=== PATIENT | female | born 1935 | race Caucasian/White ===

== ENCOUNTER 2016-10-30 15:58 | Observation (INO) ==
[2016-10-30] MEDS ORDERED: SODIUM CHLORIDE 0.9% 500 ML IV STA (16:17)
[2016-10-30] MEDS ORDERED: ONDANSETRON 4 MG/2 ML VIAL IV STA (16:17)
--- NOTE | 2016-10-30 16:23 | Emergency Department Note ---
Arrival - Arrival Chief Complaint: Weakness ED Nursing Triage Note: c/o weak and dizziness. pt had lab work drawn about 2 weeks ago had low mag, iron and blood counts. pt is going to have a transfusion. Mode of Arrival: Stretcher Limitations: No Limitations Source: Patient Time Seen by Provider: 10/30/16 16:16 - History of Present Illness HPI Narrative: This 81-year-old white female with a history of severe chronic anemia due to chronic disease per Dr. Tom presents profoundly weak with dyspnea on exertion and low-grade nausea. She denies ananya vomiting, chest pain, abdominal pain, bright red blood per rectum, or melena. She states she was scheduled to have both an iron infusion and a blood transfusion December [address] Tom. However her weakness has progressed to the point that she feels she cannot tolerate it any longer. She is currently in no medical distress. Onset (ago): week(s) (Insidious onset over weeks) Allergies/Adverse Reactions: Allergies Allergy/AdvReac Type Severity Reaction Status Date / Time methotrexate Allergy Unknown/Unable Verified 06/07/15 15:31 to obtain Penicillins Allergy Unknown/Unable Verified 02/16/16 15:02 to obtain codeine AdvReac Severe Vomiting Verified 06/07/15 15:31 morphine AdvReac Severe Vomiting Verified 06/07/15 15:31 Sulfa (Sulfonamide AdvReac Nausea Verified 04/28/16 18:44 Antibiotics) Home Medications: Home Medications Medication Instructions Recorded Confirmed Type Hydroxychloroquine [Plaquenil] 200 mg PO BID 02/25/15 04/28/16 History Magnesium Chloride [Slow Mag] 64 mg PO TID W/MEALS 02/25/15 04/28/16 History Metoprolol Tartrate Tab [Lopressor 25 mg PO BID 02/25/15 04/28/16 History Tab] Omeprazole [Prilosec] 20 mg PO BID 02/25/15 04/28/16 History Aspirin EC Tab 81 mg PO DAILY 02/16/16 04/28/16 History Sertraline [Zoloft] 25 mg PO DAILY 02/16/16 04/28/16 History Simvastatin 40 mg PO QPM 02/16/16 04/28/16 History metFORMIN [Glucophage] 500 mg PO BID 02/16/16 04/28/16 History methIMAzole [Methimazole] 10 mg PO DAILY 02/16/16 04/28/16 History Ascorbic Acid [Vitamin C] 500 mg PO DAILY 04/28/16 04/28/16 History Ciprofloxacin Tab [Cipro Tab] 500 mg PO BID #20 tablet 04/28/16 Rx Folic Acid 0.8 mg PO DAILY 04/28/16 04/28/16 History Leflunomide [Arava] 10 mg PO DAILY 04/28/16 04/28/16 History Losartan Potassium 100 mg PO DAILY 04/28/16 04/28/16 History Magnesium Chloride [Mag Delay] 64 mg PO TID 04/28/16 04/28/16 History Metoprolol Tartrate Tab [Lopressor 25 mg PO BID 04/28/16 04/28/16 History Tab] Phenazopyridine HCl [Pyridium] 200 mg PO TID #7 tablet 04/28/16 Rx Potassium Gluconate 500 mg PO DAILY 04/28/16 04/28/16 History Vitamin E 400 unit PO DAILY 04/28/16 04/28/16 History predniSONE TAB [PredniSONE] 10 mg PO DAILY 04/28/16 04/28/16 History traMADol TAB [Ultram] 50 mg PO Q6H PRN #20 tablet 04/28/16 Rx Review of System - Review of System 12 point system: reviewed and no additional remarkable complaints except as stated - Review of System Respiratory: Present: as per HPI Cardiovascular: Present: as per HPI Gastrointestinal: Present: as per HPI Medical,Surgical,& Family Hx - Medical History Cardio: History of: CAD (RCA stents 2 in 2008, repeat heart cath 2010 widely patent), Hypertension No history of: CHF Psychological: History of: Depression Endocrine: History of: Diabetes Mellitus (NIDDM), Dyslipidemia, Thyroid Disorder Rheumatology: History of;: Rheumatoid Arthritis Respiratory: History of: Asthma, COPD Genitourinary: History of: Recurring Urinary Tract Infections Gastrointestinal: History of: Diverticulitis/ Diverticulosis, GERD Hematology: History of: Anemia - Surgical History Cardiac Surgeries: Sugical HX of: Cardiac Catheterization (STENTS X2) Abdominal Surgeries: Surgical HX of: Cholecystectomy Reproductive Surgeries: Surgical HX of;: Genitourinary Surgery (BLADDER TACT), Hysterectomy - Family History Family History: Reports;: Family Diabetes, Family Heart Disease, Family Hypertension - Social History Smoking Status: Unknown if ever smoked Frequency of Alcohol Use: None Type of Drug Use: None Exam Physical Examination: GENERAL: Well developed, well nourished pale elderly white female in no acute distress. HEENT: Normocephalic. No trauma. Moist mucous membranes but all mucosa extremely pale. EOMI. PERRLA. ENT NML NECK: Supple. No adenopathy. CARDIAC: Regular. No murmurs. Heart rate 72 CHEST: Clear to auscultation. No respiratory distress. O2 sat 100% ABDOMEN: Soft. Nontender. Active bowel sounds. EXTREMITIES: No trauma. Normal ROM. No pedal edema. SKIN: No diaphoresis. No rash. NEURO: Alert. Neuro intact. No focal deficits. Vital Signs: Vital Signs Temperature 97.0 F L 10/30/16 16:05 Pulse Rate 72 10/30/16 16:05 Respiratory Rate 18 10/30/16 16:05 Blood Pressure 161/81 10/30/16 16:05 O2 Sat by Pulse Oximetry 100 10/30/16 16:05 Course - Reevaluation(s) Reevaluation #1: Discussed with patient plans for admission for transfusion. - Consultations Consultation #1: Discussed with Dr. Tom who deferred to the hospitalist as this was a simple admission for transfusion. Consultation #2: Discussed with the hospitalist service who will admit for further evaluation treatment. Results - Labs CBC & BMP: 10/30/16 16:35 10/30/16 16:35 Labs: I have reviewed the laboratory noted the low hematocrit and very low iron. As well as findings of protein malnutrition. - Impressions EKG: Sinus rhythm at [address] interval and QRS duration. Normal ST segments. Normal EKG. - Diagnostic Findings Procedure: Chest x-ray: image reviewed by me, report reviewed by me (Normal chest) Disposition Clinical Impression: Anemia of chronic disease, Severe iron deficiency, Cystitis Case discussed with: patient Disposition: Still a Patient Condition: Stable Time of Disposition: 17:44
[2016-10-30] MEDS ORDERED: ONDANSETRON 4 MG/2 ML VIAL ONE (16:24)
--- NOTE | 2016-10-30 16:37 | XRay Report ---
XR chest 1V portable Indication: Shortness of breath Comparison: Chest x-ray 08/05/2015 Technique: Portable AP chest was performed. Findings: Heart size is normal. Pulmonary vasculature appears within normal limits. No significant abnormality of the mediastinal contours demonstrated. Lungs are clear. Bones and soft tissues demonstrate no significant abnormalities. Impression: 1. No evidence of acute pathology. 10/30/2016 4:34 PM PROCEDURE INTERPRETED AT [facility] DEPARTMENT OF RADIOLOGY Final Report Signed by: Dr. Fermín Caro
[2016-10-30 16:53] LABS: Basophils % 0.3 % (0.0-0.8); Eosinophils % 0.6 % (0.00-10.9); Hematocrit 23.3 VOL% (35.7-47.0); Hemoglobin 7.2 GM/DL (12.0-16.0); Immature Granulocytes % 0.6 %; Immature Granulocytes Absolute 0.04 #; Lymphocytes # 1.1 10*3/uL (1.4-4.0); Lymphocytes % 17.2 % (21.3-54.2); Mean Corpuscular HGB Conc 30.9 GM/DL (32-36); Mean Corpuscular Hemoglobin 25 PG (27-34); Mean Corpuscular Volume 80.9 FL (87-102); Mean Platelet Volume 10.2 FL (9.6-12.0); Monocytes # 0.4 10*3/uL (0.11-0.8); Neutrophils # 4.9 10*3/uL (1.4-7.4); Neutrophils % 75.3 % (38.7-73.9); Platelet Count 276 T/CUMM (130-400); Red Blood Count 2.88 MC/CUMM (3.8-5.5); Red Cell Distribution Width 15.8 % (9.3-17.3); White Blood Count 6.5 T/CUMM (4-12)
[2016-10-30 17:01] LABS: PT Patient Result 11.1 SECS
[2016-10-30 17:08] LABS: Apearance,Urine CLEAR (Clear); Bacteria,Urine Occasional /HPF (Few); Bilirubin,Urine Negative (Negative); Blood, Urine Negative (Negative); Glucose,Urine (UA) Negative (Negative); Ketones,Urine Negative (Negative); Mucus,Urine Occasional /LPF (Occasional); Nitrite,Urine Negative (Negative); Protein,Urine Negative; RBC,Urine 1 /HPF (0-4); Urine Color Straw (Yellow); Urine Specific Gravity 1.004 (1.001-1.035); Urine Urobilinogen < 2.0 EU/DL (0.2-1.0); WBC,Urine 2 /HPF (0-6)
[2016-10-30 17:22] LABS: % Iron Saturation 3.1 % (18-50); Alanine Aminotransferase 13 U/L (13-56); Albumin 2.7 G/DL (3.4-5.0); Alkaline Phosphatase 71 U/L (45-117); Aspartate Amino Transferase 9 U/L (0-37); Bilirubin,Total < 0.39 MG/DL (0.2-1.0); Blood Urea Nitrogen 13 MG/DL (7-18); Calcium 7.5 MG/DL (8.5-10.1); Glucose 112 MG/DL (74-106); Iron 10 UG/DL (50-170); Iron Binding Capacity 326 UG/DL (250-450); Magnesium 1.3 MG/DL (1.8-2.4); Osmolality,Calculated 286.8 MOS/KG (273-304); Sodium 144 MMOL/L (136-145); Total Protein 5.2 G/DL (6.4-8.3); Troponin I Only < 0.015 NG/ML (0.00-0.045)
--- NOTE | 2016-10-30 18:45 | Hospitalist History & Physical ---
Assessment and Plan - Time spent with patient Time spent with patient: Greater than 30 minutes (1) Anemia, iron deficiency Status: Acute Assessment and plan: H&H 7.2 and 23.3. Will admit to hospital. Will order Type and screen. Will transfuse PRBCs. Will repeat labs. Will replacement magnesium. Will discuss with Dr Anderson for further recommendations. Current Visit: No Qualifiers: Iron deficiency anemia type: chronic blood loss Qualified Code(s): D50.0 - Iron deficiency anemia secondary to blood loss (chronic) History of Present Illness Chief complaint: shortness of breath, chronic anemia History of present illness: Ms. Shah is a 81 year old white female presented to [facility] ED with shortness of breath with exertion, weakness, and dizziness. PMHx: CAD, Hypertension, Depression, Diabetes, dyslipidemia, thyroid disorder, Rheumatoid arthritis, Asthma, COPD, Recurrent urinary tract infections, GERD, diverticulitis, chronic anemia disease. She reports seeing Dr Adler Wednesday and had labs drawn. She was told that her blood count was low and her iron was low and was scheduled for [address] Tom. She reports some occasional nausea. Denies any vomiting, denies any blood in stools, dark or bright red. She verbalized that she has had upper and lower GI scopes, as well as a camera study and they were all negative for bleeding within the past 2 years. After discussion with Dr Grullon in the ED and Dr Anderson with Hospital Services, it was agreed to admit patient for further evaluation and treatment. Home medications will be reviewed and reconciliation to follow. Home Medications Medication Instructions Recorded Confirmed Type Hydroxychloroquine [Plaquenil] 200 mg PO BID 02/25/15 04/28/16 History Magnesium Chloride [Slow Mag] 64 mg PO TID W/MEALS 02/25/15 04/28/16 History Metoprolol Tartrate Tab [Lopressor 25 mg PO BID 02/25/15 04/28/16 History Tab] Omeprazole [Prilosec] 20 mg PO BID 02/25/15 04/28/16 History Aspirin EC Tab 81 mg PO DAILY 02/16/16 04/28/16 History Sertraline [Zoloft] 25 mg PO DAILY 02/16/16 04/28/16 History Simvastatin 40 mg PO QPM 02/16/16 04/28/16 History metFORMIN [Glucophage] 500 mg PO BID 02/16/16 04/28/16 History methIMAzole [Methimazole] 10 mg PO DAILY 02/16/16 04/28/16 History Ascorbic Acid [Vitamin C] 500 mg PO DAILY 04/28/16 04/28/16 History Ciprofloxacin Tab [Cipro Tab] 500 mg PO BID #20 tablet 04/28/16 Rx Folic Acid 0.8 mg PO DAILY 04/28/16 04/28/16 History Leflunomide [Arava] 10 mg PO DAILY 04/28/16 04/28/16 History Losartan Potassium 100 mg PO DAILY 04/28/16 04/28/16 History Magnesium Chloride [Mag Delay] 64 mg PO TID 04/28/16 04/28/16 History Metoprolol Tartrate Tab [Lopressor 25 mg PO BID 04/28/16 04/28/16 History Tab] Phenazopyridine HCl [Pyridium] 200 mg PO TID #7 tablet 04/28/16 Rx Potassium Gluconate 500 mg PO DAILY 04/28/16 04/28/16 History Vitamin E 400 unit PO DAILY 04/28/16 04/28/16 History predniSONE TAB [PredniSONE] 10 mg PO DAILY 04/28/16 04/28/16 History traMADol TAB [Ultram] 50 mg PO Q6H PRN #20 tablet 04/28/16 Rx Allergies Allergy/AdvReac Type Severity Reaction Status Date / Time methotrexate Allergy Unknown/Unable Verified 06/07/15 15:31 to obtain Penicillins Allergy Unknown/Unable Verified 02/16/16 15:02 to obtain codeine AdvReac Severe Vomiting Verified 06/07/15 15:31 morphine AdvReac Severe Vomiting Verified 06/07/15 15:31 Sulfa (Sulfonamide AdvReac Nausea Verified 04/28/16 18:44 Antibiotics) Medical,Surgical,& Family Hx - Medical History Cardio: History of: CAD (RCA stents 2 in 2008, repeat heart cath 2010 widely patent), Hypertension No history of: CHF Psychological: History of: Depression Endocrine: History of: Diabetes Mellitus (NIDDM), Dyslipidemia, Thyroid Disorder Rheumatology: History of;: Rheumatoid Arthritis Respiratory: History of: Asthma, COPD Genitourinary: History of: Recurring Urinary Tract Infections Gastrointestinal: History of: Diverticulitis/ Diverticulosis, GERD Hematology: History of: Anemia - Surgical History Cardiac Surgeries: Sugical HX of: Cardiac Catheterization (STENTS X2) Abdominal Surgeries: Surgical HX of: Cholecystectomy Reproductive Surgeries: Surgical HX of;: Genitourinary Surgery (BLADDER TACT), Hysterectomy - Family History Family History: Reports;: Family Diabetes, Family Heart Disease, Family Hypertension - Social History Smoking Status: Unknown if ever smoked Frequency of Alcohol Use: None Type of Drug Use: None Review of systems: ROS completed and pertinent positives and negatives in HPI. Exam - Constitutional Vitals: Period Temp Pulse Resp BP Sys/Ramon Pulse Ox Last 24 Hr 97.0 F-97.0 F 72-72 18-18 161-161/81-81 100 General appearance: normal weight, no acute distress - Head Head exam: Present: normal inspection - Eye Eye exam: Present: EOMI Pupils: Present: NELIDA - Neck Neck exam: Present: normal inspection. Absent: thyromegaly - Respiratory Respiratory exam: Present: clear to auscultation bilaterally. Absent: wheezes - Cardiovascular Cardiovascular exam: Present: regular rate and rhythm - GI/Abdominal GI/Abdominal exam: Present: normal bowel sounds, soft. Absent: tenderness, rebound - Extremities Exam Extremities exam: Present: full ROM. Absent: edema - Neurological Exam Neurological exam: Present: alert, oriented X3 - Psychiatric Psychiatric exam: Present: normal affect, normal mood - Skin Skin exam: Present: warm, dry, pallor Results - Labs CBC & BMP: 10/30/16 16:35 10/30/16 16:35 Lab Results: I have reviewed the past 24 hour labs
[2016-10-30] MEDS ORDERED: GLUCAGON 1 MG VIAL IM PRN (19:22)
[2016-10-30] MEDS ORDERED: SODIUM CHLORIDE 0.9% 250 ML IV PRN (19:22)
[2016-10-30] MEDS ORDERED: DEXTROSE 50% 25 GM/50 ML VIAL IV PRN (19:22)
[2016-10-30] MEDS ORDERED: MAGNESIUM SULF INJ 3 GM in SODIUM CHLORIDE 0.9% 100 ML IV ONE (20:00)
[2016-10-30] MEDS: SIMVASTATIN 40 MG TABLET PO SCH (21:17)
[2016-10-30] MEDS: METOPROLOL TARTRATE 25 MG TABLET PO SCH (21:17)
[2016-10-30] MEDS: MAGNESIUM CHLORIDE 64 MG TABLET PO SCH (21:17)
[2016-10-30] MEDS: INSULIN LISPRO 100 UNIT/ML SUBCUT SCH (21:17)
[2016-10-30] MEDS: HYDROXYCHLOROQUINE 200 MG TABLET PO SCH (21:17)
[2016-10-31] MEDS: ASCORBIC ACID 500 MG TABLET PO SCH (08:21)
[2016-10-31] MEDS: POTASSIUM GLUCONATE 500 MG TABLET PO SCH (08:21)
[2016-10-31] MEDS: FOLIC ACID 0.4 MG TABLET PO SCH (08:21)
[2016-10-31] MEDS: methIMAzole 5 MG TABLET PO SCH (08:21)
[2016-10-31] MEDS: MAGNESIUM CHLORIDE 64 MG TABLET PO SCH ×2 (08:22→20:38)
[2016-10-31] MEDS: LOSARTAN 50 MG TABLET PO SCH (08:22)
[2016-10-31] MEDS: METOPROLOL TARTRATE 25 MG TABLET PO SCH ×2 (08:22→20:38)
[2016-10-31] MEDS: ASPIRIN EC 81 MG TABLET PO SCH (08:22)
[2016-10-31] MEDS: PANTOPRAZOLE 40 MG TABLET PO SCH (08:22)
[2016-10-31] MEDS: SERTRALINE 25 MG TABLET PO SCH (08:22)
[2016-10-31] MEDS: HYDROXYCHLOROQUINE 200 MG TABLET PO SCH ×2 (08:22→20:38)
[2016-10-31] MEDS: metFORMIN 500 MG TABLET PO SCH ×2 (08:23→18:40)
[2016-10-31] MEDS: INSULIN LISPRO 100 UNIT/ML SUBCUT SCH ×4 (08:23→20:41)
[2016-10-31 08:33] LABS: Basophils # 0.1 10*3/uL (0.0-0.2); Basophils % 0.8 % (0.0-0.8); Eosinophils # 0.2 10*3/uL (0.0-0.87); Eosinophils % 2.1 % (0.00-10.9); Hematocrit 25.9 VOL% (35.7-47.0); Hemoglobin 8.1 GM/DL (12.0-16.0); Immature Granulocytes % 0.3 %; Immature Granulocytes Absolute 0.02 #; Lymphocytes # 3.4 10*3/uL (1.4-4.0); Lymphocytes % 47.1 % (21.3-54.2); Mean Corpuscular HGB Conc 31.3 GM/DL (32-36); Mean Corpuscular Hemoglobin 25 PG (27-34); Mean Corpuscular Volume 80.7 FL (87-102); Mean Platelet Volume 10.7 FL (9.6-12.0); Monocytes # 0.6 10*3/uL (0.11-0.8); Monocytes % 8.3 % (1.7-12.7); Neutrophils % 41.4 % (38.7-73.9); Platelet Count 348 T/CUMM (130-400); Red Blood Count 3.21 MC/CUMM (3.8-5.5); Red Cell Distribution Width 15.9 % (9.3-17.3); White Blood Count 7.2 T/CUMM (4-12)
--- NOTE | 2016-10-31 08:34 | EKG Report ---
Stationary ECG Study [facility] ER Test Date: 10/30/2016 5:04:57 PM Pat Name: PAYTON CARVALHO Department: Room: 436 Gender: F Clinical Programmer: : 1935 Requested by: Aki Grant Order Number: [id number] Reading MD: NINFA ALCOCER Intervals [place] Rate: 66 P: 72 ME: 173 QRS: 2 QRSD: 105 T: 32 QT: 391 QTc: 404 Interpretive Statements SINUS RHYTHM Electronically Signed On 11-01-16 15:49:35 CDT by NINFA ALCOCER [email or web address]
[2016-10-31 08:41] LABS: Calcium 8.7 MG/DL (8.5-10.1); Magnesium 2.6 MG/DL (1.8-2.4); Osmolality,Calculated 282.1 MOS/KG (273-304); Potassium 4.7 MMOL/L (3.5-5.1)
--- NOTE | 2016-10-31 12:44 | Hospitalist Progress Note ---
Assessment and Plan (1) Iron deficiency anemia Status: Acute Assessment and plan: The patient was in the hospital with anemia. Previous hematologic diagnosis was anemia of chronic disease likely on account of rheumatoid. The patient continues on hydration for now we will transfuse 2 units packed red blood cells when available. Current Visit: No (2) Intractable nausea and vomiting Status: Resolved Current Visit: No Hospitalist: Subjective Interval history: Mrs. Shah was admitted to the hospital for blood transfusion. Blood bank is having difficulty finding compatible blood so far. The patient was initially nauseated but this has now improved. Exam - Constitutional Vitals: Period Temp Pulse Resp BP Sys/Ramon Pulse Ox Last 24 Hr 96.3 F-97.8 F 58-72 16-20 108-171/49-84 95-100 General appearance: no acute distress - Respiratory Respiratory exam: Present: clear to auscultation bilaterally - Cardiovascular Cardiovascular exam: Present: regular rate and rhythm - GI/Abdominal GI/Abdominal exam: Present: normal bowel sounds Results - Labs CBC & BMP: 10/31/16 07:55 10/31/16 07:55 Lab Results: I have reviewed the past 24 hour labs
[2016-10-31] MEDS: SIMVASTATIN 40 MG TABLET PO SCH (20:38)
[2016-10-31 23:12] LABS: Hematocrit 30.3 VOL% (35.7-47.0); Hemoglobin 9.8 GM/DL (12.0-16.0)
--- NOTE | 2016-11-01 08:41 | Discharge Summary ---
<Lavern Weeks - Last Filed: 11/01/16 09:01> Hospital Course - Hospital Course Hospital Course: 11/01/16 Ms Shah 81 y/o white female presented to the [facility] ED on for c/o shortness of breath with exertion, weakness, and dizziness. PMHx Anemia of Chronic Disease, CAD, Hypertension, Depression, Diabetes, dyslipidemia , thyroid disorder, Rheumatoid arthritis, Asthma, COPD, Recurrent urinary tract infections, GERD, diverticulitis. Patient of Dr Adler and had lab work done at the office and patient reported she was informed to have a "low blood count and low iron" and was then made an appointment with Dr Tom for next week. She verbalized she could not wait till next week because she was feeling worse and therefore came to the emergency room for evaluation. She reports having recent upper and lower GI scopes as well as camera exam but nothing was abnormally found. Anemia of chronic disease is most likely related to Rheumatoid disease. While in the ED, H&H was noted to be 7.2 and 23.3, electrolytes were within normal limits, and renal function intact. At which time it was decided to admit patient to hospital services and transfusion lab was gone for the day. Admit for symptomatic anemia of chronic disease, type and screen, crossmatch with transfusion of 2 units of PRBCs. After transfusion completed Hbg 8.1 and Hct 25.9. 11/01/16 Ms Shah seen this a.m and chart reviewed. She verbalized feeling much better. Denies shortness of breath or pain. Denies nausea or vomiting. Noelle fever or chills. She appears more energetic this a.m. Labs this a.m. showed improving H&H; Hgb 9.8 and Hct 30.3. She agrees with the plan of getting her home today. She will need to follow up with her primary care physician Dr Adler and Dr Tom. - Time spent with patient Time with patient DS: Less than 30 minutes Diagnosis - Discharge Diagnosis (1) Anemia, iron deficiency Status: Acute Discharge Plan - Discharge Data Disposition: Disch To Home/Self Care Condition at Discharge: Stable Discharge Diet: advance to your usual diet Activity: resume usual activities as tolerated, increase activity as tolerated Hygiene: no restrictions Weight Bearing at Discharge: full weight bearing Contact your physician if you experience:: fever over 101, Shortness of breath, Bleeding - Discharge Medications Continue Omeprazole [Prilosec] 20 mg PO QAM Metoprolol Tartrate Tab [Lopressor Tab] 25 mg PO BID Hydroxychloroquine [Plaquenil] 200 mg PO BID Aspirin EC Tab 81 mg PO QAM Simvastatin 40 mg PO QPM Sertraline [Zoloft] 25 mg PO QAM methIMAzole [Methimazole] 10 mg PO QAM metFORMIN [Glucophage] 500 mg PO BID W/MEALS Ascorbic Acid [Vitamin C] 500 mg PO QAM Potassium Gluconate 500 mg PO DAILY predniSONE TAB [PredniSONE] 10 mg PO QOTHER DAY Magnesium Chloride [Mag Delay] 128 mg PO BID Losartan Potassium 100 mg PO QAM Folic Acid 0.8 mg PO QAM Leflunomide [Arava] 10 mg PO QOTHER DAY - Follow Up or Referral - Forms/Instructions Additional Discharge Instructions: Follow up with Primary Care Physician in 1-2 weeks Exam - Constitutional Vitals: Period Temp Pulse Resp BP Sys/Ramon Pulse Ox Last 24 Hr 96.7 F-98.3 F 57-72 17-22 120-164/51-69 95-100 General appearance: normal weight - Head Head exam: Present: normal inspection - Eye Eye exam: Present: EOMI Pupils: Present: NELIDA - ENT ENT exam: Present: other (moist membranes) - Neck Neck exam: Present: normal inspection - Respiratory Respiratory exam: Present: clear to auscultation bilaterally. Absent: stridor, wheezes - Cardiovascular Cardiovascular exam: Present: regular rate and rhythm - GI/Abdominal GI/Abdominal exam: Present: normal bowel sounds, soft. Absent: tenderness, rebound - Extremities Exam Extremities exam: Present: full ROM. Absent: edema - Neurological Exam Neurological exam: Present: alert, oriented X3, CN II-XII intact - Psychiatric Psychiatric exam: Present: normal affect, normal mood. Absent: agitated, anxious - Skin Skin exam: Present: normal color (anemia of chronic disease, color improved since admission), warm, dry Discharge Results Labs on day of discharge: Labs from last 24 hours 11/01/16 10/31/16 10/31/16 07:52 22:51 20:37 Hgb 9.8 L D Hct 30.3 L POC Glucose 87 137 H Blood Type Antibody Screen Antibody Identification Crossmatch 0710/31/16 10/30/16 16:09 11:28 16:35 Hgb Hct POC Glucose 94 80 Blood Type A POSITIVE Antibody Screen Positive Antibody Identification Anti-Jka Crossmatch See Detail DS: Provider Date of admission: 10/30/16 18:48 Primary care physician: . No PCP Attending physician on admission: Jefry Zapata Discharging clinician: Lavern Weeks NP <Diego Delgado - Last Filed: 11/01/16 09:11> Diagnosis - Discharge Diagnosis (1) Iron deficiency anemia Status: Chronic
[2016-11-01] MEDS ORDERED: predniSONE 10 MG TABLET PO SCH (09:00)
[2016-11-01] MEDS ORDERED: LEFLUNOMIDE 10 MG TABLET PO SCH (09:00)
[2016-11-01 09:33] VITALS: BP 146/65
[2016-11-01] MEDS: methIMAzole 5 MG TABLET PO SCH (10:34)
[2016-11-01] MEDS: FOLIC ACID 0.4 MG TABLET PO SCH (10:34)
[2016-11-01] MEDS: POTASSIUM GLUCONATE 500 MG TABLET PO SCH (10:34)
[2016-11-01] MEDS: SERTRALINE 25 MG TABLET PO SCH (10:34)
[2016-11-01] MEDS: HYDROXYCHLOROQUINE 200 MG TABLET PO SCH (10:34)
[2016-11-01] MEDS: LOSARTAN 50 MG TABLET PO SCH (10:35)
[2016-11-01] MEDS: MAGNESIUM CHLORIDE 64 MG TABLET PO SCH (10:35)
[2016-11-01] MEDS: ASCORBIC ACID 500 MG TABLET PO SCH (10:35)
[2016-11-01] MEDS: METOPROLOL TARTRATE 25 MG TABLET PO SCH (10:35)
[2016-11-01] MEDS: ASPIRIN EC 81 MG TABLET PO SCH (10:35)
[2016-11-01] MEDS: PANTOPRAZOLE 40 MG TABLET PO SCH (10:36)
[2016-11-01] MEDS: metFORMIN 500 MG TABLET PO SCH (10:36)
[2016-11-01] MEDS: INSULIN LISPRO 100 UNIT/ML SUBCUT SCH (10:52)
== END 2016-11-01 11:16 | disposition home or self-care (01) ==
LOC: EDBD → EDUNIT# → N.ED 15:58 → N.4E 15:58 → SUATTDRO 18:48 → N.4E 19:35
PROVIDERS: ADMIT Hospitalist; ATTEND Internal Medicine

== ENCOUNTER 2017-03-25 23:21 | Inpatient (IN) ==
[2017-03-25] MEDS ORDERED: ONDANSETRON 4 MG/2 ML VIAL IV STA (23:44)
[2017-03-25] MEDS ORDERED: DICYCLOMINE 20 MG/2 ML AMP IM ONE ×2 (23:44→23:56)
[2017-03-25] MEDS ORDERED: SODIUM CHLORIDE 0.9% 1,000 ML IV STA (23:44)
[2017-03-25] MEDS ORDERED: PANTOPRAZOLE 40 MG VIAL IV STA (23:44)
[2017-03-25] MEDS ORDERED: METOCLOPRAMIDE 10 MG/2 ML VIAL IV STA (23:44)
[2017-03-25] MEDS ORDERED: METOCLOPRAMIDE 10 MG/2 ML VIAL ONE (23:56)
[2017-03-25] MEDS ORDERED: ONDANSETRON 4 MG/2 ML VIAL ONE (23:56)
[2017-03-25] MEDS ORDERED: PANTOPRAZOLE 40 MG VIAL IV ONE (23:56)
[2017-03-26 00:21] LABS: Basophils % 0.3 % (0.0-0.8); Eosinophils # 0.1 10*3/uL (0.0-0.87); Eosinophils % 0.8 % (0.00-10.9); Hematocrit 36.1 VOL% (35.7-47.0); Hemoglobin 11.7 GM/DL (12.0-16.0); Immature Granulocytes % 0.6 %; Immature Granulocytes Absolute 0.06 #; Lymphocytes # 2.7 10*3/uL (1.4-4.0); Lymphocytes % 25.3 % (21.3-54.2); Mean Corpuscular HGB Conc 32.4 GM/DL (32-36); Mean Corpuscular Hemoglobin 30 PG (27-34); Mean Platelet Volume 10.4 FL (9.6-12.0); Monocytes # 1.1 10*3/uL (0.11-0.8); Monocytes % 10.7 % (1.7-12.7); Neutrophils # 6.6 10*3/uL (1.4-7.4); Neutrophils % 62.3 % (38.7-73.9); Platelet Count 290 T/CUMM (130-400); Red Blood Count 3.88 MC/CUMM (3.8-5.5); Red Cell Distribution Width 14.9 % (9.3-17.3); White Blood Count 10.6 T/CUMM (4-12)
[2017-03-26 00:29] LABS: PT Patient Result 10.5 SECS; Partial Thromboplastin Time 22.9 SECS (0-40)
[2017-03-26 00:42] LABS: Alanine Aminotransferase 16 U/L (13-56); Albumin 3.3 G/DL (3.4-5.0); Alkaline Phosphatase 80 U/L (45-117); Aspartate Amino Transferase 22 U/L (0-37); Bilirubin,Total < 0.39 MG/DL (0.2-1.0); Blood Urea Nitrogen 28 MG/DL (7-18); Calcium 8.7 MG/DL (8.5-10.1); Glucose 170 MG/DL (74-106); Osmolality,Calculated 288.4 MOS/KG (273-304); Potassium 4.5 MMOL/L (3.5-5.1); Sodium 140 MMOL/L (136-145); Total Protein 6.2 G/DL (6.4-8.3); Troponin I Only < 0.015 NG/ML (0.00-0.045)
[2017-03-26 01:36] LABS: Apearance,Urine Slightly Hazy (Clear); Bacteria,Urine Occasional /HPF (Few); Bilirubin,Urine Negative (Negative); Blood, Urine Negative (Negative); Glucose,Urine (UA) 50 mg/dL (Negative); Hyaline Casts,Urine 2 /LPF (0-3); Ketones,Urine Negative (Negative); Mucus,Urine Occasional /LPF (Occasional); Nitrite,Urine Negative (Negative); Protein,Urine Negative; RBC,Urine 1 /HPF (0-4); Squamous Epithelial Cell,Urine Occasional /HPF (0-10); Urine Color Yellow (Yellow); Urine Urobilinogen < 2.0 EU/DL (0.2-1.0); WBC,Urine 17 /HPF (0-6)
[2017-03-26] MEDS ORDERED: ACETAMINOPHEN 325 MG TABLET PO PRN (02:30)
[2017-03-26] MEDS ORDERED: ONDANSETRON 4 MG/2 ML VIAL IV PRN (02:30)
[2017-03-26] MEDS ORDERED: DEXTROSE 50% 25 GM/50 ML VIAL IV PRN (02:34)
[2017-03-26] MEDS ORDERED: GLUCAGON 1 MG VIAL IM PRN (02:34)
[2017-03-26] MEDS ORDERED: tiZANidine 4 MG TABLET PO PRN (02:35)
[2017-03-26] MEDS ORDERED: ALBUTEROL 2.5 MG/3 ML NEB RESP TX PRN (02:35)
[2017-03-26 05:38] LABS: Barbiturates Screen,Urine Negative (Negative); Benzodiazepines Screen,Urine Negative (Negative); Cannabinoid Screen,Urine Negative (Negative); Opiate Screen,Urine Negative (Negative); Phencyclidine Screen,Urine Negative (Negative)
[2017-03-26 07:17] LABS: Hematocrit 32.1 VOL% (35.7-47.0); Hemoglobin 10.6 GM/DL (12.0-16.0)
[2017-03-26 07:53] LABS: Alanine Aminotransferase 15 U/L (13-56); Albumin 3.1 G/DL (3.4-5.0); Alkaline Phosphatase 74 U/L (45-117); Aspartate Amino Transferase 11 U/L (0-37); Bilirubin,Total < 0.39 MG/DL (0.2-1.0); Blood Urea Nitrogen 23 MG/DL (7-18); Calcium 8.6 MG/DL (8.5-10.1); Glucose 146 MG/DL (74-106); Osmolality,Calculated 285.4 MOS/KG (273-304); Sodium 140 MMOL/L (136-145); Total Protein 5.7 G/DL (6.4-8.3); Troponin I Only < 0.015 NG/ML (0.00-0.045)
[2017-03-26] MEDS ORDERED: LEFLUNOMIDE 10 MG TABLET PO SCH (09:00)
[2017-03-26 09:09] LABS: Hematocrit 31.3 VOL% (35.7-47.0); Hemoglobin 10.3 GM/DL (12.0-16.0)
[2017-03-26] MEDS ORDERED: AMIODARONE 200 MG TABLET PO ONE (09:51)
[2017-03-26] MEDS: INSULIN REGULAR 100 UNIT/ML SUBCUT SCH ×4 (11:40→21:28)
[2017-03-26] MEDS: FLUTICASONE/SALMETEROL 250-50 DISKUS 14 DOSE INH SCH ×2 (11:52→21:38)
[2017-03-26] MEDS: PANTOPRAZOLE 40 MG VIAL IV SCH ×2 (11:52→21:29)
[2017-03-26] MEDS: METOPROLOL TARTRATE 25 MG TABLET PO SCH ×2 (11:52→21:28)
[2017-03-26] MEDS: MAGNESIUM CHLORIDE 64 MG TABLET PO SCH ×2 (11:52→21:27)
[2017-03-26] MEDS: ASCORBIC ACID 500 MG TABLET PO SCH (11:52)
[2017-03-26] MEDS: methIMAzole 10 MG TABLET PO SCH (11:52)
[2017-03-26] MEDS: HYDROXYCHLOROQUINE 200 MG TABLET PO SCH ×2 (11:52→21:28)
[2017-03-26] MEDS: predniSONE 10 MG TABLET PO SCH (11:52)
[2017-03-26] MEDS: METHENAMINE HIPPURATE 1 GM TABLET PO SCH ×2 (11:52→21:27)
[2017-03-26] MEDS: SERTRALINE 25 MG TABLET PO SCH (11:53)
[2017-03-26 16:29] LABS: Hematocrit 32.2 VOL% (35.7-47.0); Hemoglobin 10.5 GM/DL (12.0-16.0)
[2017-03-26] MEDS ORDERED: SIMVASTATIN 40 MG TABLET PO SCH ×2 (19:00→21:00)
[2017-03-26 22:11] LABS: Hematocrit 30.4 VOL% (35.7-47.0); Hemoglobin 9.8 GM/DL (12.0-16.0)
[2017-03-27] MEDS ORDERED: SODIUM CHLORIDE 0.9% 250 ML IV ONE
[2017-03-27 03:06] LABS: Basophils % 0.4 % (0.0-0.8); Eosinophils # 0.1 10*3/uL (0.0-0.87); Eosinophils % 0.7 % (0.00-10.9); Hematocrit 29.4 VOL% (35.7-47.0); Hemoglobin 9.5 GM/DL (12.0-16.0); Immature Granulocytes % 0.6 %; Immature Granulocytes Absolute 0.04 #; Lymphocytes # 1.8 10*3/uL (1.4-4.0); Lymphocytes % 25.1 % (21.3-54.2); Mean Corpuscular HGB Conc 32.3 GM/DL (32-36); Mean Corpuscular Hemoglobin 30 PG (27-34); Mean Corpuscular Volume 92.2 FL (87-102); Mean Platelet Volume 10.7 FL (9.6-12.0); Monocytes # 0.8 10*3/uL (0.11-0.8); Monocytes % 10.3 % (1.7-12.7); Neutrophils # 4.6 10*3/uL (1.4-7.4); Neutrophils % 62.9 % (38.7-73.9); Platelet Count 252 T/CUMM (130-400); Red Blood Count 3.19 MC/CUMM (3.8-5.5); Red Cell Distribution Width 14.9 % (9.3-17.3); White Blood Count 7.3 T/CUMM (4-12)
[2017-03-27 03:47] LABS: Calcium 8.3 MG/DL (8.5-10.1); Magnesium 2.3 MG/DL (1.8-2.4); Osmolality,Calculated 285.1 MOS/KG (273-304); Potassium 4.1 MMOL/L (3.5-5.1)
[2017-03-27 03:57] LABS: Risk Ratio 2.59; VLDL CHOLESTEROL 23.4 MG/DL
[2017-03-27] MEDS: INSULIN REGULAR 100 UNIT/ML SUBCUT SCH ×2 (07:48→12:06)
[2017-03-27] MEDS ORDERED: AMIODARONE 200 MG TABLET PO SCH (09:00)
[2017-03-27] MEDS: FLUTICASONE/SALMETEROL 250-50 DISKUS 14 DOSE INH SCH (09:28)
[2017-03-27] MEDS: PANTOPRAZOLE 40 MG VIAL IV SCH (09:28)
[2017-03-27] MEDS: MAGNESIUM CHLORIDE 64 MG TABLET PO SCH (09:30)
[2017-03-27] MEDS: METOPROLOL TARTRATE 25 MG TABLET PO SCH (09:31)
[2017-03-27] MEDS: methIMAzole 10 MG TABLET PO SCH (09:31)
[2017-03-27] MEDS: HYDROXYCHLOROQUINE 200 MG TABLET PO SCH (09:31)
[2017-03-27] MEDS: METHENAMINE HIPPURATE 1 GM TABLET PO SCH (09:31)
[2017-03-27] MEDS: predniSONE 10 MG TABLET PO SCH (09:32)
[2017-03-27] MEDS: ASCORBIC ACID 500 MG TABLET PO SCH (09:32)
[2017-03-27] MEDS: SERTRALINE 25 MG TABLET PO SCH (09:37)
[2017-03-27] MEDS ORDERED: SODIUM CHLORIDE 0.9% 500 ML IV ONE (10:03)
[2017-03-27 11:50] VITALS: BP 123/57
[2017-03-29] MEDS ORDERED: POLYETHYLENE GLYCOL POWDER 255 GM BOTTLE PO ONE (16:00)
[2017-03-30] MEDS ORDERED: MAGNESIUM CITRATE 300 ML BOTTLE PO ONE (06:00)
== END 2017-03-27 15:30 | disposition home or self-care (01) | DRG 378 ==
LOC: EDUNIT# → EDBD → N.ED 23:21 → N.EDINP 03-26 02:30 → N.TELES 03-26 02:57
PROVIDERS: ADMIT Internal Medicine; ATTEND Internal Medicine

== ENCOUNTER 2017-04-29 05:56 | Inpatient (IN) ==
[2017-04-27 17:02] LABS: Basophils # 0.1 10*3/uL (0.0-0.2); Basophils % 0.8 % (0.0-0.8); Eosinophils # 0.3 10*3/uL (0.0-0.87); Eosinophils % 3.4 % (0.00-10.9); Hemoglobin 10.4 GM/DL (12.0-16.0); Immature Granulocytes % 0.8 %; Immature Granulocytes Absolute 0.06 #; Lymphocytes % 26.5 % (21.3-54.2); Mean Corpuscular HGB Conc 31.5 GM/DL (32-36); Mean Corpuscular Hemoglobin 30 PG (27-34); Mean Corpuscular Volume 94.8 FL (87-102); Mean Platelet Volume 10.2 FL (9.6-12.0); Monocytes # 0.9 10*3/uL (0.11-0.8); Monocytes % 11.2 % (1.7-12.7); Neutrophils # 4.4 10*3/uL (1.4-7.4); Neutrophils % 57.3 % (38.7-73.9); Platelet Count 260 T/CUMM (130-400); Red Blood Count 3.48 MC/CUMM (3.8-5.5); Red Cell Distribution Width 14.6 % (9.3-17.3); White Blood Count 7.7 T/CUMM (4-12)
[2017-04-27 17:32] LABS: Albumin 3.7 G/DL (3.4-5.0); Bilirubin,Total 0.5 MG/DL (0.2-1.0); Calcium 8.9 MG/DL (8.5-10.1); Osmolality,Calculated 278.5 MOS/KG (273-304); Potassium 4.5 MMOL/L (3.5-5.1); Total Protein 6.5 G/DL (6.4-8.3)
[2017-04-29] MEDS ORDERED: cefOXitin 1,000 MG in SYRINGE 1 EACH IV ONE (06:00)
[2017-04-29] MEDS ORDERED: ALVIMOPAN 12 MG CAPSULE PO ONE (06:00)
[2017-04-29] MEDS ORDERED: IPRATROPIUM 500 MCG/2.5 ML NEB RESP TX ONE (06:18)
[2017-04-29] MEDS ORDERED: ALBUTEROL 2.5 MG/3 ML NEB RESP TX ONE (06:18)
[2017-04-29] MEDS ORDERED: FAMOTIDINE 20 MG TABLET PO ONE (06:18)
[2017-04-29] MEDS ORDERED: DIAZEPAM 5 MG TABLET PO ONE (06:18)
[2017-04-29] MEDS ORDERED: BUPIVACAINE 0.25% 50 ML VIAL ONE (06:22)
[2017-04-29] MEDS ORDERED: ALVIMOPAN 12 MG CAPSULE ONE (06:35)
[2017-04-29] MEDS: LACTATED RINGERS 1,000 ML IV SCH (06:50)
[2017-04-29] MEDS ORDERED: TISSUE ADHESIVE 1 EACH APPLICATOR TOP ONE (08:31)
[2017-04-29] MEDS ORDERED: ONDANSETRON 4 MG/2 ML VIAL IV PRN ×2 (08:55→09:19)
[2017-04-29] MEDS ORDERED: HYDROmorphone 2 MG/1 ML VIAL IV PRN (08:55)
[2017-04-29] MEDS ORDERED: ALBUTEROL 2.5 MG/3 ML NEB RESP TX PRN (08:59)
[2017-04-29] MEDS ORDERED: DEXTROSE 50% 25 GM/50 ML VIAL IV PRN (09:01)
[2017-04-29] MEDS ORDERED: GLUCAGON 1 MG VIAL IM PRN (09:01)
[2017-04-29] MEDS ORDERED: PROPOFOL 200 MG/20 ML VIAL IV ONE (09:09)
[2017-04-29] MEDS ORDERED: fentaNYL 100 MCG/2 ML VIAL ONE (09:09)
[2017-04-29] MEDS ORDERED: methylPREDNISolone SOD SUC 125 MG/2 ML VIAL ONE (09:09)
[2017-04-29] MEDS ORDERED: ALBUMIN 5% 12.5 GM/250 ML VIAL IV ONE (09:09)
[2017-04-29] MEDS ORDERED: SEVOFLURANE 1 UNIT/15 MINUTE INH ONE (09:09)
[2017-04-29] MEDS ORDERED: ROCURONIUM 100 MG/10 ML VIAL IV ONE (09:10)
[2017-04-29] MEDS ORDERED: NEOSTIGMINE 10 MG/10 ML VIAL ONE (09:10)
[2017-04-29] MEDS ORDERED: GLYCOPYRROLATE 0.4 MG/2 ML VIAL ONE (09:10)
[2017-04-29] MEDS ORDERED: LACTATED RINGERS 1,000 ML IV ONE (09:10)
[2017-04-29] MEDS: HYDROmorphone 2 MG/1 ML VIAL IV PRN ×2 (09:25→09:42)
[2017-04-29 10:34] LABS: Hematocrit 30.1 VOL% (35.7-47.0); Hemoglobin 9.4 GM/DL (12.0-16.0)
[2017-04-29] MEDS: AMIODARONE 200 MG TABLET PO SCH (11:36)
[2017-04-29] MEDS: predniSONE 10 MG TABLET PO SCH (11:37)
[2017-04-29] MEDS: CARVEDILOL 12.5 MG TABLET PO SCH ×2 (11:37→20:54)
[2017-04-29] MEDS: SERTRALINE 25 MG TABLET PO SCH (11:37)
[2017-04-29] MEDS: INSULIN REGULAR 100 UNIT/ML SUBCUT SCH ×3 (12:15→23:32)
[2017-04-29] MEDS: DEXTROSE 5% LACTATED RINGERS 1,000 ML IV SCH ×3 (13:12→21:13)
[2017-04-29] MEDS: cefOXitin 2,000 MG in SYRINGE 1 EACH IV SCH ×2 (13:12→22:49)
[2017-04-29 17:31] LABS: Hematocrit 29.9 VOL% (35.7-47.0); Hemoglobin 9.7 GM/DL (12.0-16.0)
[2017-04-29] MEDS: MONTELUKAST 10 MG TABLET PO SCH (20:54)
[2017-04-30 01:06] LABS: Basophils % 0.1 % (0.0-0.8); Hematocrit 28.1 VOL% (35.7-47.0); Hematocrit 28.2 VOL% (35.7-47.0); Hemoglobin 9.1 GM/DL (12.0-16.0); Immature Granulocytes % 0.7 %; Immature Granulocytes Absolute 0.09 #; Lymphocytes # 0.8 10*3/uL (1.4-4.0); Lymphocytes % 5.8 % (21.3-54.2); Mean Corpuscular HGB Conc 32.3 GM/DL (32-36); Mean Corpuscular Hemoglobin 30 PG (27-34); Mean Corpuscular Volume 91.9 FL (87-102); Mean Platelet Volume 10.6 FL (9.6-12.0); Monocytes # 0.6 10*3/uL (0.11-0.8); Monocytes % 4.3 % (1.7-12.7); Neutrophils # 11.6 10*3/uL (1.4-7.4); Neutrophils % 89.1 % (38.7-73.9); Platelet Count 208 T/CUMM (130-400); Red Blood Count 3.07 MC/CUMM (3.8-5.5); Red Cell Distribution Width 14.5 % (9.3-17.3)
[2017-04-30 01:34] LABS: Calcium 8.1 MG/DL (8.5-10.1); Osmolality,Calculated 289.5 MOS/KG (273-304); Potassium 4.6 MMOL/L (3.5-5.1)
[2017-04-30] MEDS: DEXTROSE 5% LACTATED RINGERS 1,000 ML IV SCH ×4 (04:34→21:07)
[2017-04-30] MEDS: cefOXitin 2,000 MG in SYRINGE 1 EACH IV SCH (04:37)
[2017-04-30] MEDS: INSULIN REGULAR 100 UNIT/ML SUBCUT SCH ×4 (06:26→23:45)
[2017-04-30] MEDS: ENOXAPARIN 40 MG/0.4 ML SYRINGE SUBCUT SCH (06:26)
[2017-04-30] MEDS: AMIODARONE 200 MG TABLET PO SCH (08:53)
[2017-04-30] MEDS: SERTRALINE 25 MG TABLET PO SCH (08:53)
[2017-04-30] MEDS: CARVEDILOL 12.5 MG TABLET PO SCH ×2 (08:53→21:04)
[2017-04-30] MEDS: predniSONE 10 MG TABLET PO SCH (08:53)
[2017-04-30] MEDS: HYDROXYCHLOROQUINE 200 MG TABLET PO SCH ×2 (14:14→21:04)
[2017-04-30] MEDS: LACTATED RINGERS 1,000 ML IV SCH (15:35)
[2017-04-30] MEDS: MONTELUKAST 10 MG TABLET PO SCH (21:03)
[2017-05-01 03:15] LABS: Basophils % 0.2 % (0.0-0.8); Eosinophils % 0.4 % (0.00-10.9); Hematocrit 27.6 VOL% (35.7-47.0); Hemoglobin 8.7 GM/DL (12.0-16.0); Immature Granulocytes % 0.5 %; Immature Granulocytes Absolute 0.04 #; Lymphocytes # 1.5 10*3/uL (1.4-4.0); Mean Corpuscular HGB Conc 31.5 GM/DL (32-36); Mean Corpuscular Hemoglobin 30 PG (27-34); Mean Corpuscular Volume 93.9 FL (87-102); Mean Platelet Volume 10.9 FL (9.6-12.0); Monocytes # 0.6 10*3/uL (0.11-0.8); Monocytes % 7.7 % (1.7-12.7); Neutrophils % 73.2 % (38.7-73.9); Platelet Count 193 T/CUMM (130-400); Red Blood Count 2.94 MC/CUMM (3.8-5.5); Red Cell Distribution Width 14.5 % (9.3-17.3); White Blood Count 8.1 T/CUMM (4-12)
[2017-05-01 03:39] LABS: Calcium 8.1 MG/DL (8.5-10.1); Osmolality,Calculated 284.1 MOS/KG (273-304); Potassium 3.9 MMOL/L (3.5-5.1)
[2017-05-01] MEDS: DEXTROSE 5% LACTATED RINGERS 1,000 ML IV SCH ×3 (05:23→17:52)
[2017-05-01] MEDS: INSULIN REGULAR 100 UNIT/ML SUBCUT SCH ×3 (06:09→17:51)
[2017-05-01] MEDS: ENOXAPARIN 40 MG/0.4 ML SYRINGE SUBCUT SCH (06:10)
[2017-05-01] MEDS: CARVEDILOL 12.5 MG TABLET PO SCH ×2 (08:43→21:07)
[2017-05-01] MEDS: AMIODARONE 200 MG TABLET PO SCH (08:43)
[2017-05-01] MEDS: HYDROXYCHLOROQUINE 200 MG TABLET PO SCH ×2 (08:43→21:06)
[2017-05-01] MEDS: SERTRALINE 25 MG TABLET PO SCH (08:43)
[2017-05-01] MEDS: predniSONE 10 MG TABLET PO SCH (08:43)
[2017-05-01] MEDS ORDERED: GLUCAGON 1 MG VIAL IM PRN (10:21)
[2017-05-01] MEDS ORDERED: DEXTROSE 50% 25 GM/50 ML VIAL IV PRN (10:21)
[2017-05-01] MEDS: LACTATED RINGERS 1,000 ML IV SCH (17:45)
[2017-05-01] MEDS: MONTELUKAST 10 MG TABLET PO SCH (21:06)
[2017-05-02] MEDS: INSULIN REGULAR 100 UNIT/ML SUBCUT SCH ×4 (00:28→18:06)
[2017-05-02] MEDS: ENOXAPARIN 40 MG/0.4 ML SYRINGE SUBCUT SCH (06:29)
[2017-05-02] MEDS: HYDROXYCHLOROQUINE 200 MG TABLET PO SCH ×2 (09:06→21:25)
[2017-05-02] MEDS: predniSONE 10 MG TABLET PO SCH (09:06)
[2017-05-02] MEDS: SERTRALINE 25 MG TABLET PO SCH (09:06)
[2017-05-02] MEDS: CARVEDILOL 12.5 MG TABLET PO SCH ×2 (09:06→21:25)
[2017-05-02] MEDS: AMIODARONE 200 MG TABLET PO SCH (09:06)
[2017-05-02] MEDS: MONTELUKAST 10 MG TABLET PO SCH (21:25)
[2017-05-02] MEDS: LACTATED RINGERS 1,000 ML IV SCH (21:26)
[2017-05-03] MEDS: INSULIN REGULAR 100 UNIT/ML SUBCUT SCH ×4 (00:26→18:10)
[2017-05-03] MEDS: ENOXAPARIN 40 MG/0.4 ML SYRINGE SUBCUT SCH (05:12)
[2017-05-03] MEDS: AMIODARONE 200 MG TABLET PO SCH (09:17)
[2017-05-03] MEDS: predniSONE 10 MG TABLET PO SCH (09:18)
[2017-05-03] MEDS: HYDROXYCHLOROQUINE 200 MG TABLET PO SCH ×2 (09:18→21:15)
[2017-05-03] MEDS: CARVEDILOL 12.5 MG TABLET PO SCH ×2 (09:18→21:15)
[2017-05-03] MEDS: SERTRALINE 25 MG TABLET PO SCH (09:20)
[2017-05-03] MEDS: LACTATED RINGERS 1,000 ML IV SCH (11:37)
[2017-05-03] MEDS ORDERED: TUBERCULIN SKIN TEST 0.1 ML SYRINGE INTRADERM ONE (15:00)
[2017-05-03] MEDS: MONTELUKAST 10 MG TABLET PO SCH (21:15)
[2017-05-04] MEDS: INSULIN REGULAR 100 UNIT/ML SUBCUT SCH ×2 (00:09→05:58)
[2017-05-04 05:13] LABS: Basophils % 0.6 % (0.0-0.8); Eosinophils # 0.5 10*3/uL (0.0-0.87); Eosinophils % 7.3 % (0.00-10.9); Hemoglobin 9.5 GM/DL (12.0-16.0); Immature Granulocytes % 0.6 %; Immature Granulocytes Absolute 0.04 #; Lymphocytes # 2.2 10*3/uL (1.4-4.0); Lymphocytes % 33.6 % (21.3-54.2); Mean Corpuscular HGB Conc 32.8 GM/DL (32-36); Mean Corpuscular Hemoglobin 30 PG (27-34); Mean Corpuscular Volume 90.6 FL (87-102); Mean Platelet Volume 10.6 FL (9.6-12.0); Monocytes # 0.6 10*3/uL (0.11-0.8); Monocytes % 8.8 % (1.7-12.7); Neutrophils # 3.2 10*3/uL (1.4-7.4); Neutrophils % 49.1 % (38.7-73.9); Platelet Count 220 T/CUMM (130-400); Red Cell Distribution Width 14.5 % (9.3-17.3); White Blood Count 6.5 T/CUMM (4-12)
[2017-05-04 05:42] LABS: Calcium 8.6 MG/DL (8.5-10.1); Potassium 3.6 MMOL/L (3.5-5.1)
[2017-05-04] MEDS: ENOXAPARIN 40 MG/0.4 ML SYRINGE SUBCUT SCH (05:58)
[2017-05-04] MEDS: SERTRALINE 25 MG TABLET PO SCH (09:44)
[2017-05-04] MEDS: HYDROXYCHLOROQUINE 200 MG TABLET PO SCH (09:45)
[2017-05-04] MEDS: predniSONE 10 MG TABLET PO SCH (09:45)
[2017-05-04] MEDS: AMIODARONE 200 MG TABLET PO SCH (09:45)
[2017-05-04] MEDS: CARVEDILOL 12.5 MG TABLET PO SCH (09:45)
[2017-05-04 11:06] VITALS: BP 140/70
== END 2017-05-04 11:25 | DRG 330 ==
LOC: N.OR 05:56 → N.SDSINP 05:57 → N.3E 08:55
PROVIDERS: ADMIT Surgery; ATTEND Surgery

== ENCOUNTER 2017-05-12 09:09 | Inpatient (IN) ==
[2017-05-12] MEDS ORDERED: SODIUM CHLORIDE 0.9% 500 ML IV STA (09:16)
[2017-05-12 10:45] LABS: Albumin 2.3 G/DL (3.4-5.0); Bilirubin,Total 0.4 MG/DL (0.2-1.0); Calcium 8.4 MG/DL (8.5-10.1); Osmolality,Calculated 278.5 MOS/KG (273-304); Potassium 4.1 MMOL/L (3.5-5.1); Total Protein 6.4 G/DL (6.4-8.3)
[2017-05-12 10:59] LABS: Apearance,Urine CLOUDY (Clear); Bilirubin,Urine Negative (Negative); Blood, Urine Negative (Negative); Glucose,Urine (UA) Negative (Negative); Hyaline Casts,Urine 6 /LPF (0-3); Ketones,Urine Negative (Negative); Mucus,Urine Occasional /LPF (Occasional); Nitrite,Urine Negative (Negative); Protein,Urine 30 MG/DL; RBC,Urine 1 /HPF (0-4); Squamous Epithelial Cell,Urine Occasional /HPF (0-10); Urine Color Amber (Yellow); Urine Urobilinogen < 2.0 EU/DL (0.2-1.0); WBC,Urine 33 /HPF (0-6)
[2017-05-12] MEDS ORDERED: LEVOFLOXACIN INJ 500 MG in PREMIX 1 EACH IV STA (11:18)
[2017-05-12] MEDS ORDERED: SODIUM CHLORIDE 0.9% 1,000 ML IV STA (11:18)
[2017-05-12 11:20] LABS: Basophils % 0.2 % (0.0-0.8); Hemoglobin 9.6 GM/DL (12.0-16.0); Immature Granulocytes % 3.9 %; Immature Granulocytes Absolute 1.01 #; Lymphocytes # 0.5 10*3/uL (1.4-4.0); Mean Corpuscular Hemoglobin 29 PG (27-34); Mean Corpuscular Volume 90.1 FL (87-102); Mean Platelet Volume 11.5 FL (9.6-12.0); Monocytes # 0.6 10*3/uL (0.11-0.8); Monocytes % 2.4 % (1.7-12.7); Neutrophils # 23.7 10*3/uL (1.4-7.4); Neutrophils % 91.5 % (38.7-73.9); Platelet Count 290 T/CUMM (130-400); Red Blood Count 3.33 MC/CUMM (3.8-5.5); Red Cell Distribution Width 14.9 % (9.3-17.3); White Blood Count 25.9 T/CUMM (4-12)
[2017-05-12 11:33] LABS: Band Neutrophils 1 % (0-10); Hypochromasia 1+; Lymphocytes 3 % (20-55); Platelet Estimate Adequate; Segmented Neutrophils 94 % (50-85); Total Cells Counted 100
[2017-05-12] MEDS ORDERED: LEVOFLOXACIN INJ 100 ML IV ONE (11:39)
[2017-05-12] MEDS ORDERED: ACETAMINOPHEN 325 MG TABLET PO PRN ×2 (11:53→16:25)
[2017-05-12] MEDS ORDERED: DOCUSATE SODIUM 100 MG CAPSULE PO PRN (11:53)
[2017-05-12] MEDS ORDERED: ONDANSETRON 4 MG/2 ML VIAL IV PRN (11:53)
[2017-05-12] MEDS ORDERED: DEXTROSE 50% 25 GM/50 ML VIAL IV PRN (12:05)
[2017-05-12] MEDS ORDERED: GLUCAGON 1 MG VIAL IM PRN (12:05)
[2017-05-12] MEDS ORDERED: ACETAMINOPHEN 325 MG TABLET ONE (12:26)
[2017-05-12] MEDS: ALBUTEROL/IPRATROPIUM 3 ML NEB RESP TX SCH ×2 (13:10→20:18)
[2017-05-12] MEDS: INSULIN REGULAR 100 UNIT/ML SUBCUT SCH ×2 (16:22→21:45)
[2017-05-12] MEDS: SODIUM CHLORIDE 0.9% 1,000 ML IV SCH (16:22)
[2017-05-12] MEDS ORDERED: ALBUTEROL 2.5 MG/3 ML NEB RESP TX PRN (16:25)
[2017-05-12] MEDS ORDERED: tiZANidine 4 MG TABLET PO PRN (16:25)
[2017-05-12] MEDS ORDERED: PROMETHAZINE 25 MG/1 ML VIAL IM PRN (16:25)
[2017-05-12] MEDS: METHENAMINE HIPPURATE 1 GM TABLET PO SCH (21:44)
[2017-05-12] MEDS: HYDROXYCHLOROQUINE 200 MG TABLET PO SCH (21:44)
[2017-05-12] MEDS: MONTELUKAST 10 MG TABLET PO SCH (21:45)
[2017-05-12] MEDS: SIMVASTATIN 40 MG TABLET PO SCH (21:45)
[2017-05-12] MEDS: CARVEDILOL 12.5 MG TABLET PO SCH (21:47)
[2017-05-13] MEDS: ALBUTEROL/IPRATROPIUM 3 ML NEB RESP TX SCH ×4 (00:36→20:19)
[2017-05-13 06:30] LABS: Basophils % 0.1 % (0.0-0.8); Eosinophils % 0.1 % (0.00-10.9); Hematocrit 27.2 VOL% (35.7-47.0); Hemoglobin 9.1 GM/DL (12.0-16.0); Immature Granulocytes % 6.4 %; Lymphocytes # 0.9 10*3/uL (1.4-4.0); Lymphocytes % 5.4 % (21.3-54.2); Mean Corpuscular HGB Conc 33.5 GM/DL (32-36); Mean Corpuscular Hemoglobin 29 PG (27-34); Mean Corpuscular Volume 86.9 FL (87-102); Mean Platelet Volume 11.3 FL (9.6-12.0); Monocytes # 0.6 10*3/uL (0.11-0.8); Monocytes % 3.7 % (1.7-12.7); Neutrophils # 14.6 10*3/uL (1.4-7.4); Neutrophils % 84.3 % (38.7-73.9); Platelet Count 319 T/CUMM (130-400); Red Blood Count 3.13 MC/CUMM (3.8-5.5); Red Cell Distribution Width 15.3 % (9.3-17.3); White Blood Count 17.3 T/CUMM (4-12)
[2017-05-13 06:51] LABS: Band Neutrophils 3 % (0-10); Hypochromasia 1+; Lymphocytes 6 % (20-55); Segmented Neutrophils 89 % (50-85); Total Cells Counted 100
[2017-05-13 06:52] LABS: Microcytosis Slight; Ovalocytes Slight
[2017-05-13 06:57] LABS: Albumin 2.1 G/DL (3.4-5.0); Bilirubin,Total 0.4 MG/DL (0.2-1.0); Calcium 8.2 MG/DL (8.5-10.1); Osmolality,Calculated 283.1 MOS/KG (273-304); Potassium 4.2 MMOL/L (3.5-5.1); Total Protein 5.4 G/DL (6.4-8.3)
[2017-05-13] MEDS: INSULIN REGULAR 100 UNIT/ML SUBCUT SCH ×4 (09:02→22:37)
[2017-05-13] MEDS: METHENAMINE HIPPURATE 1 GM TABLET PO SCH ×2 (09:03→22:34)
[2017-05-13] MEDS: ASPIRIN EC 81 MG TABLET PO SCH (09:03)
[2017-05-13] MEDS: predniSONE 10 MG TABLET PO SCH (09:03)
[2017-05-13] MEDS: methIMAzole 5 MG TABLET PO SCH (09:03)
[2017-05-13] MEDS: SERTRALINE 25 MG TABLET PO SCH (09:03)
[2017-05-13] MEDS: HYDROXYCHLOROQUINE 200 MG TABLET PO SCH ×2 (09:03→22:35)
[2017-05-13] MEDS: AMIODARONE 200 MG TABLET PO SCH (09:03)
[2017-05-13] MEDS: metFORMIN 500 MG TABLET PO SCH (09:03)
[2017-05-13] MEDS: ASCORBIC ACID 500 MG TABLET PO SCH (09:03)
[2017-05-13] MEDS: CARVEDILOL 12.5 MG TABLET PO SCH ×2 (09:04→22:35)
[2017-05-13] MEDS: LEVOFLOXACIN INJ 250 MG in PREMIX 1 EACH IV SCH (13:00)
[2017-05-13] MEDS: MEROPENEM 1,000 MG in SYRINGE 1 EACH IV SCH (15:27)
[2017-05-13] MEDS: MONTELUKAST 10 MG TABLET PO SCH (22:35)
[2017-05-13] MEDS: SODIUM CHLORIDE 0.9% 1,000 ML IV SCH (22:35)
[2017-05-13] MEDS: SIMVASTATIN 40 MG TABLET PO SCH (22:35)
[2017-05-14] MEDS: ALBUTEROL/IPRATROPIUM 3 ML NEB RESP TX SCH ×4 (00:37→19:12)
[2017-05-14 06:02] LABS: Basophils % 0.1 % (0.0-0.8); Eosinophils % 0.4 % (0.00-10.9); Hematocrit 26.7 VOL% (35.7-47.0); Hemoglobin 8.7 GM/DL (12.0-16.0); Immature Granulocytes % 3.1 %; Immature Granulocytes Absolute 0.29 #; Mean Corpuscular HGB Conc 32.6 GM/DL (32-36); Mean Corpuscular Hemoglobin 29 PG (27-34); Mean Corpuscular Volume 89.3 FL (87-102); Mean Platelet Volume 10.6 FL (9.6-12.0); Monocytes # 0.5 10*3/uL (0.11-0.8); Monocytes % 5.3 % (1.7-12.7); Neutrophils # 7.5 10*3/uL (1.4-7.4); Neutrophils % 80.1 % (38.7-73.9); Platelet Count 318 T/CUMM (130-400); Red Blood Count 2.99 MC/CUMM (3.8-5.5); Red Cell Distribution Width 15.3 % (9.3-17.3); White Blood Count 9.4 T/CUMM (4-12)
[2017-05-14 06:28] LABS: Calcium 8.6 MG/DL (8.5-10.1); Osmolality,Calculated 286.7 MOS/KG (273-304)
[2017-05-14 06:36] LABS: Hypochromasia Slight; Lymphocytes 8 % (20-55); Platelet Estimate Adequate; Segmented Neutrophils 85 % (50-85); Total Cells Counted 100
[2017-05-14] MEDS: INSULIN REGULAR 100 UNIT/ML SUBCUT SCH ×4 (08:17→21:03)
[2017-05-14] MEDS: ASCORBIC ACID 500 MG TABLET PO SCH (08:19)
[2017-05-14] MEDS: ASPIRIN EC 81 MG TABLET PO SCH (08:19)
[2017-05-14] MEDS: METHENAMINE HIPPURATE 1 GM TABLET PO SCH ×2 (08:19→21:02)
[2017-05-14] MEDS: HYDROXYCHLOROQUINE 200 MG TABLET PO SCH ×2 (08:19→21:02)
[2017-05-14] MEDS: AMIODARONE 200 MG TABLET PO SCH (08:19)
[2017-05-14] MEDS: metFORMIN 500 MG TABLET PO SCH (08:19)
[2017-05-14] MEDS: methIMAzole 5 MG TABLET PO SCH (08:19)
[2017-05-14] MEDS: LEFLUNOMIDE 10 MG TABLET PO SCH (08:19)
[2017-05-14] MEDS: predniSONE 10 MG TABLET PO SCH (08:19)
[2017-05-14] MEDS: CARVEDILOL 12.5 MG TABLET PO SCH ×2 (08:19→21:02)
[2017-05-14] MEDS: SERTRALINE 25 MG TABLET PO SCH (08:19)
[2017-05-14] MEDS: MEROPENEM 1,000 MG in SYRINGE 1 EACH IV SCH ×2 (09:21→20:59)
[2017-05-14] MEDS: LEVOFLOXACIN INJ 250 MG in PREMIX 1 EACH IV SCH (11:01)
[2017-05-14] MEDS: SODIUM CHLORIDE 0.9% 1,000 ML IV SCH (11:23)
[2017-05-14 12:10] LABS: Free T4 (Free Thyroxine) 1.04 NG/DL (0.76-1.46); Thyroid Stimulating Hormone 2.91 uIU/ml (0.358-3.74)
[2017-05-14] MEDS: MONTELUKAST 10 MG TABLET PO SCH (21:02)
[2017-05-14] MEDS: SIMVASTATIN 40 MG TABLET PO SCH (21:02)
[2017-05-15] MEDS: ALBUTEROL/IPRATROPIUM 3 ML NEB RESP TX SCH ×4 (00:53→19:01)
[2017-05-15 06:47] LABS: Calcium 8.6 MG/DL (8.5-10.1); Magnesium 1.6 MG/DL (1.8-2.4); Osmolality,Calculated 289.4 MOS/KG (273-304); Potassium 4.3 MMOL/L (3.5-5.1)
[2017-05-15] MEDS ORDERED: MAGNESIUM SULF RIDER 4 GM in PREMIX 1 EACH IV PRN (07:38)
[2017-05-15] MEDS ORDERED: MAGNESIUM SULF RIDER 2 GM in PREMIX 1 EACH IV PRN (07:38)
[2017-05-15] MEDS: INSULIN REGULAR 100 UNIT/ML SUBCUT SCH ×4 (07:47→20:46)
[2017-05-15] MEDS: ASCORBIC ACID 500 MG TABLET PO SCH (08:26)
[2017-05-15] MEDS: metFORMIN 500 MG TABLET PO SCH (08:26)
[2017-05-15] MEDS: CARVEDILOL 12.5 MG TABLET PO SCH ×2 (08:26→20:46)
[2017-05-15] MEDS: METHENAMINE HIPPURATE 1 GM TABLET PO SCH ×2 (08:26→20:46)
[2017-05-15] MEDS: ASPIRIN EC 81 MG TABLET PO SCH (08:26)
[2017-05-15] MEDS: AMIODARONE 200 MG TABLET PO SCH (08:26)
[2017-05-15] MEDS: methIMAzole 5 MG TABLET PO SCH (08:26)
[2017-05-15] MEDS: HYDROXYCHLOROQUINE 200 MG TABLET PO SCH ×2 (08:26→20:46)
[2017-05-15] MEDS: predniSONE 10 MG TABLET PO SCH (08:26)
[2017-05-15] MEDS: SERTRALINE 25 MG TABLET PO SCH (08:27)
[2017-05-15] MEDS: MEROPENEM 1,000 MG in SYRINGE 1 EACH IV SCH ×2 (09:51→20:46)
[2017-05-15] MEDS: LEVOFLOXACIN INJ 250 MG in PREMIX 1 EACH IV SCH (11:17)
[2017-05-15] MEDS: PANTOPRAZOLE 40 MG TABLET PO SCH (11:18)
[2017-05-15] MEDS: MONTELUKAST 10 MG TABLET PO SCH (20:45)
[2017-05-15] MEDS: SIMVASTATIN 40 MG TABLET PO SCH (20:46)
[2017-05-16] MEDS: ALBUTEROL/IPRATROPIUM 3 ML NEB RESP TX SCH ×2 (00:20→07:15)
[2017-05-16 07:03] LABS: Basophils % 0.2 % (0.0-0.8); Eosinophils # 0.2 10*3/uL (0.0-0.87); Eosinophils % 1.7 % (0.00-10.9); Hematocrit 28.1 VOL% (35.7-47.0); Hemoglobin 8.9 GM/DL (12.0-16.0); Immature Granulocytes % 4.7 %; Immature Granulocytes Absolute 0.42 #; Lymphocytes # 1.7 10*3/uL (1.4-4.0); Lymphocytes % 18.4 % (21.3-54.2); Mean Corpuscular HGB Conc 31.7 GM/DL (32-36); Mean Corpuscular Hemoglobin 28 PG (27-34); Mean Corpuscular Volume 89.2 FL (87-102); Mean Platelet Volume 9.8 FL (9.6-12.0); Monocytes # 0.7 10*3/uL (0.11-0.8); Monocytes % 8.2 % (1.7-12.7); Neutrophils % 66.8 % (38.7-73.9); Platelet Count 395 T/CUMM (130-400); Red Blood Count 3.15 MC/CUMM (3.8-5.5); Red Cell Distribution Width 15.2 % (9.3-17.3)
[2017-05-16 07:30] LABS: Calcium 8.9 MG/DL (8.5-10.1); Osmolality,Calculated 290.1 MOS/KG (273-304); Potassium 4.5 MMOL/L (3.5-5.1)
[2017-05-16] MEDS: INSULIN REGULAR 100 UNIT/ML SUBCUT SCH ×2 (07:48→11:09)
[2017-05-16 07:50] VITALS: BP 119/80
[2017-05-16] MEDS: MEROPENEM 1,000 MG in SYRINGE 1 EACH IV SCH (09:11)
[2017-05-16] MEDS: HYDROXYCHLOROQUINE 200 MG TABLET PO SCH (09:12)
[2017-05-16] MEDS: SERTRALINE 25 MG TABLET PO SCH (09:12)
[2017-05-16] MEDS: predniSONE 10 MG TABLET PO SCH (09:12)
[2017-05-16] MEDS: metFORMIN 500 MG TABLET PO SCH (09:12)
[2017-05-16] MEDS: CARVEDILOL 12.5 MG TABLET PO SCH (09:12)
[2017-05-16] MEDS: ASCORBIC ACID 500 MG TABLET PO SCH (09:12)
[2017-05-16] MEDS: LEFLUNOMIDE 10 MG TABLET PO SCH (09:13)
[2017-05-16] MEDS: PANTOPRAZOLE 40 MG TABLET PO SCH (09:13)
[2017-05-16] MEDS: ASPIRIN EC 81 MG TABLET PO SCH (09:13)
[2017-05-16] MEDS: AMIODARONE 200 MG TABLET PO SCH (09:13)
[2017-05-16] MEDS: METHENAMINE HIPPURATE 1 GM TABLET PO SCH (09:13)
[2017-05-16] MEDS: methIMAzole 5 MG TABLET PO SCH (09:14)
[2017-05-16] MEDS: LEVOFLOXACIN INJ 250 MG in PREMIX 1 EACH IV SCH (11:09)
== END 2017-05-16 13:52 | disposition home or self-care (01) | DRG 194 ==
LOC: EDBD → EDUNIT# → N.ED 09:09 → N.EDINP 11:30 → N.5E 15:36
PROVIDERS: ADMIT Internal Medicine; ATTEND Internal Medicine

== ENCOUNTER 2017-07-01 21:33 | Inpatient (IN) ==
[2017-07-01 21:52] LABS: Basophils % 0.4 % (0.0-0.8); Hematocrit 28.8 VOL% (35.7-47.0); Hemoglobin 9.1 GM/DL (12.0-16.0); Immature Granulocytes % 0.7 %; Immature Granulocytes Absolute 0.05 #; Lymphocytes % 13.7 % (21.3-54.2); Mean Corpuscular HGB Conc 31.6 GM/DL (32-36); Mean Corpuscular Hemoglobin 29 PG (27-34); Mean Corpuscular Volume 91.4 FL (87-102); Mean Platelet Volume 10.6 FL (9.6-12.0); Monocytes # 0.4 10*3/uL (0.11-0.8); Monocytes % 6.1 % (1.7-12.7); Neutrophils # 5.6 10*3/uL (1.4-7.4); Neutrophils % 79.1 % (38.7-73.9); Platelet Count 261 T/CUMM (130-400); Red Blood Count 3.15 MC/CUMM (3.8-5.5); Red Cell Distribution Width 17.2 % (9.3-17.3); White Blood Count 7.1 T/CUMM (4-12)
[2017-07-01] MEDS ORDERED: SODIUM CHLORIDE 0.9% 1,000 ML IV STA ×2 (21:57→22:20)
[2017-07-01 22:17] LABS: Alanine Aminotransferase 18 U/L (13-56); Albumin 3.2 G/DL (3.4-5.0); Alkaline Phosphatase 57 U/L (45-117); Aspartate Amino Transferase 15 U/L (0-37); Bilirubin,Total < 0.39 MG/DL (0.2-1.0); Blood Urea Nitrogen 31 MG/DL (7-18); Calcium 8.2 MG/DL (8.5-10.1); Glucose 249 MG/DL (74-106); Osmolality,Calculated 295.3 MOS/KG (273-304); Sodium 141 MMOL/L (136-145); Total Protein 5.8 G/DL (6.4-8.3); Troponin I Only < 0.015 NG/ML (0.00-0.045)
[2017-07-01 22:18] LABS: Lactic Acid 2.2 MMOL/L (0.4-2.0)
[2017-07-01] MEDS ORDERED: VANCOMYCIN INJ 1,000 MG in SODIUM CHLORIDE 0.9% 250 ML IV STA (22:21)
[2017-07-01] MEDS ORDERED: CEFEPIME 2,000 MG in SODIUM CHLORIDE 0.9% 100 ML IV STA (22:21)
[2017-07-01 22:27] LABS: Potassium 6.2 MMOL/L (3.5-5.1)
[2017-07-01] MEDS ORDERED: CEFEPIME 2,000 MG VIAL ONE (22:28)
[2017-07-01] MEDS ORDERED: VANCOMYCIN 1,000 MG VIAL ONE (22:28)
[2017-07-01] MEDS ORDERED: INSULIN REGULAR 100 UNIT/ML IV STA (22:28)
[2017-07-01] MEDS ORDERED: CALCIUM GLUCONATE 2,000 MG in SODIUM CHLORIDE 0.9% 100 ML IV ONE (22:28)
[2017-07-01] MEDS ORDERED: SODIUM BICARBONATE 50 MEQ/50 ML VIAL IV STA (22:28)
[2017-07-01] MEDS ORDERED: DEXTROSE 50% 25 GM/50 ML VIAL IV STA (22:29)
[2017-07-01] MEDS ORDERED: SODIUM BICARBONATE 10 MEQ/10 ML SYRINGE IV ONE (22:40)
[2017-07-01] MEDS ORDERED: DEXTROSE 50% 25 GM/50 ML SYRINGE IV ONE (22:40)
[2017-07-01] MEDS ORDERED: CALCIUM GLUCONATE 1,000 MG/10 ML VIAL IV ONE (22:41)
[2017-07-01] MEDS ORDERED: INSULIN REGULAR 100 UNIT/ML ONE (22:42)
[2017-07-01 23:24] LABS: Apearance,Urine CLEAR (Clear); Bacteria,Urine Occasional /HPF (Few); Bilirubin,Urine Negative (Negative); Blood, Urine Negative (Negative); Glucose,Urine (UA) 50 mg/dL (Negative); Ketones,Urine Negative (Negative); Mucus,Urine Occasional /LPF (Occasional); Nitrite,Urine Negative (Negative); Protein,Urine Negative; Squamous Epithelial Cell,Urine Occasional /HPF (0-10); Urine Color Yellow (Yellow); Urine Specific Gravity 1.008 (1.001-1.035); Urine Urobilinogen < 2.0 EU/DL (0.2-1.0); WBC,Urine 1 /HPF (0-6)
[2017-07-01 23:26] LABS: PT Patient Result 10.2 SECS; Partial Thromboplastin Time 22.9 SECS (0-40)
[2017-07-02] MEDS ORDERED: DEXTROSE 50% 25 GM/50 ML VIAL IV PRN (00:09)
[2017-07-02] MEDS ORDERED: ONDANSETRON 4 MG/2 ML VIAL IV PRN (00:09)
[2017-07-02] MEDS ORDERED: ACETAMINOPHEN 325 MG TABLET PO PRN ×2 (00:09→00:19)
[2017-07-02] MEDS ORDERED: GLUCAGON 1 MG VIAL IM PRN (00:09)
[2017-07-02] MEDS ORDERED: ONDANSETRON 4 MG TABLET PO PRN (00:19)
[2017-07-02] MEDS ORDERED: ALBUTEROL 2.5 MG/3 ML NEB RESP TX PRN (00:19)
[2017-07-02] MEDS ORDERED: SODIUM POLYSTYRENE SULFATE 15 GM/60 ML BOTTLE PO STA (01:12)
[2017-07-02] MEDS: SODIUM CHLORIDE 0.9% 1,000 ML IV SCH ×3 (01:36→17:35)
[2017-07-02 02:34] LABS: Lactic Acid 2.5 MMOL/L (0.4-2.0)
[2017-07-02 07:44] LABS: Basophils % 0.1 % (0.0-0.8); Hematocrit 25.1 VOL% (35.7-47.0); Hemoglobin 8.1 GM/DL (12.0-16.0); Immature Granulocytes % 0.4 %; Immature Granulocytes Absolute 0.03 #; Lymphocytes # 1.8 10*3/uL (1.4-4.0); Lymphocytes % 26.2 % (21.3-54.2); Mean Corpuscular HGB Conc 32.3 GM/DL (32-36); Mean Corpuscular Hemoglobin 29 PG (27-34); Mean Corpuscular Volume 88.7 FL (87-102); Mean Platelet Volume 10.5 FL (9.6-12.0); Monocytes # 0.7 10*3/uL (0.11-0.8); Monocytes % 9.7 % (1.7-12.7); Neutrophils # 4.4 10*3/uL (1.4-7.4); Neutrophils % 63.6 % (38.7-73.9); Platelet Count 226 T/CUMM (130-400); Red Blood Count 2.83 MC/CUMM (3.8-5.5); Red Cell Distribution Width 17.2 % (9.3-17.3)
[2017-07-02] MEDS: INSULIN REGULAR 100 UNIT/ML SUBCUT SCH ×4 (08:07→20:17)
[2017-07-02 08:09] LABS: Alanine Aminotransferase 12 U/L (13-56); Albumin 2.7 G/DL (3.4-5.0); Alkaline Phosphatase 50 U/L (45-117); Aspartate Amino Transferase 14 U/L (0-37); Bilirubin,Total < 0.39 MG/DL (0.2-1.0); Blood Urea Nitrogen 23 MG/DL (7-18); Calcium 8.1 MG/DL (8.5-10.1); Glucose 75 MG/DL (74-106); Osmolality,Calculated 290.7 MOS/KG (273-304); Potassium 4.4 MMOL/L (3.5-5.1); Sodium 145 MMOL/L (136-145)
[2017-07-02] MEDS ORDERED: ENOXAPARIN 30 MG/0.3 ML SYRINGE SUBCUT SCH (09:00)
[2017-07-02] MEDS: ASCORBIC ACID 500 MG TABLET PO SCH (10:00)
[2017-07-02] MEDS: METHENAMINE HIPPURATE 1 GM TABLET PO SCH ×2 (10:00→21:37)
[2017-07-02] MEDS: predniSONE 10 MG TABLET PO SCH (10:00)
[2017-07-02] MEDS: ASPIRIN EC 81 MG TABLET PO SCH (10:00)
[2017-07-02] MEDS: AMIODARONE 200 MG TABLET PO SCH (10:00)
[2017-07-02] MEDS: methIMAzole 10 MG TABLET PO SCH (10:00)
[2017-07-02] MEDS: CARVEDILOL 12.5 MG TABLET PO SCH ×2 (10:00→21:37)
[2017-07-02] MEDS: PANTOPRAZOLE 40 MG TABLET PO SCH (10:00)
[2017-07-02] MEDS: SIMVASTATIN 40 MG TABLET PO SCH (21:37)
[2017-07-02] MEDS: MIRTAZAPINE 30 MG TABLET PO SCH (21:37)
[2017-07-03] MEDS: SODIUM CHLORIDE 0.9% 1,000 ML IV SCH ×2 (01:16→09:30)
[2017-07-03 05:15] LABS: Basophils % 0.3 % (0.0-0.8); Hematocrit 25.2 VOL% (35.7-47.0); Hemoglobin 8.3 GM/DL (12.0-16.0); Immature Granulocytes % 0.7 %; Immature Granulocytes Absolute 0.04 #; Lymphocytes # 1.9 10*3/uL (1.4-4.0); Lymphocytes % 30.9 % (21.3-54.2); Mean Corpuscular HGB Conc 32.9 GM/DL (32-36); Mean Corpuscular Hemoglobin 30 PG (27-34); Mean Corpuscular Volume 89.7 FL (87-102); Mean Platelet Volume 11.4 FL (9.6-12.0); Monocytes # 0.6 10*3/uL (0.11-0.8); Monocytes % 9.4 % (1.7-12.7); Neutrophils # 3.6 10*3/uL (1.4-7.4); Neutrophils % 58.7 % (38.7-73.9); Platelet Count 239 T/CUMM (130-400); Red Blood Count 2.81 MC/CUMM (3.8-5.5); Red Cell Distribution Width 17.4 % (9.3-17.3); White Blood Count 6.1 T/CUMM (4-12)
[2017-07-03 05:32] LABS: Calcium 7.5 MG/DL (8.5-10.1); Osmolality,Calculated 295.6 MOS/KG (273-304); Potassium 4.1 MMOL/L (3.5-5.1)
[2017-07-03] MEDS ORDERED: MAGNESIUM SULF RIDER 2 GM in PREMIX 1 EACH IV PRN (05:47)
[2017-07-03] MEDS ORDERED: MAGNESIUM SULF RIDER 4 GM in PREMIX 1 EACH IV PRN (05:47)
[2017-07-03] MEDS: INSULIN REGULAR 100 UNIT/ML SUBCUT SCH ×4 (07:52→21:21)
[2017-07-03] MEDS: ASCORBIC ACID 500 MG TABLET PO SCH (09:26)
[2017-07-03] MEDS: methIMAzole 10 MG TABLET PO SCH (09:26)
[2017-07-03] MEDS: ENOXAPARIN 40 MG/0.4 ML SYRINGE SUBCUT SCH (09:26)
[2017-07-03] MEDS: CARVEDILOL 12.5 MG TABLET PO SCH ×2 (09:26→21:46)
[2017-07-03] MEDS: predniSONE 10 MG TABLET PO SCH (09:26)
[2017-07-03] MEDS: METHENAMINE HIPPURATE 1 GM TABLET PO SCH ×2 (09:26→21:46)
[2017-07-03] MEDS: AMIODARONE 200 MG TABLET PO SCH (09:26)
[2017-07-03] MEDS: ASPIRIN EC 81 MG TABLET PO SCH (09:26)
[2017-07-03] MEDS: PANTOPRAZOLE 40 MG TABLET PO SCH (09:26)
[2017-07-03] MEDS: ALBUTEROL/IPRATROPIUM 3 ML NEB RESP TX SCH ×2 (14:01→19:31)
[2017-07-03] MEDS: MIRTAZAPINE 30 MG TABLET PO SCH (21:46)
[2017-07-03] MEDS: SIMVASTATIN 40 MG TABLET PO SCH (21:46)
[2017-07-04] MEDS: ALBUTEROL/IPRATROPIUM 3 ML NEB RESP TX SCH ×4 (00:05→18:35)
[2017-07-04 06:38] LABS: Osmolality,Calculated 289.7 MOS/KG (273-304)
[2017-07-04] MEDS: INSULIN REGULAR 100 UNIT/ML SUBCUT SCH ×4 (08:34→21:20)
[2017-07-04] MEDS ORDERED: POLYETHYLENE GLYCOL POWDER 17 GM PACK PO PRN (09:32)
[2017-07-04] MEDS: ENOXAPARIN 40 MG/0.4 ML SYRINGE SUBCUT SCH (09:33)
[2017-07-04] MEDS: ASPIRIN EC 81 MG TABLET PO SCH (09:34)
[2017-07-04] MEDS: PANTOPRAZOLE 40 MG TABLET PO SCH (09:34)
[2017-07-04] MEDS: METHENAMINE HIPPURATE 1 GM TABLET PO SCH ×2 (09:34→21:19)
[2017-07-04] MEDS: CARVEDILOL 12.5 MG TABLET PO SCH ×2 (09:34→21:20)
[2017-07-04] MEDS: methIMAzole 10 MG TABLET PO SCH (09:34)
[2017-07-04] MEDS: ASCORBIC ACID 500 MG TABLET PO SCH (09:34)
[2017-07-04] MEDS: predniSONE 10 MG TABLET PO SCH (09:34)
[2017-07-04] MEDS: AMIODARONE 200 MG TABLET PO SCH (09:34)
[2017-07-04] MEDS: hydroCHLOROthiazide 12.5 MG CAPSULE PO SCH (13:48)
[2017-07-04] MEDS: MIRTAZAPINE 30 MG TABLET PO SCH (21:19)
[2017-07-04] MEDS: SIMVASTATIN 40 MG TABLET PO SCH (21:20)
[2017-07-05] MEDS: ALBUTEROL/IPRATROPIUM 3 ML NEB RESP TX SCH ×2 (00:17→07:21)
[2017-07-05 05:57] LABS: Calcium 8.3 MG/DL (8.5-10.1); Osmolality,Calculated 288.7 MOS/KG (273-304)
[2017-07-05] MEDS: INSULIN REGULAR 100 UNIT/ML SUBCUT SCH (08:46)
[2017-07-05] MEDS: AMIODARONE 200 MG TABLET PO SCH (08:54)
[2017-07-05] MEDS: methIMAzole 10 MG TABLET PO SCH (08:54)
[2017-07-05] MEDS: predniSONE 10 MG TABLET PO SCH (08:54)
[2017-07-05] MEDS: PANTOPRAZOLE 40 MG TABLET PO SCH (08:54)
[2017-07-05] MEDS: CARVEDILOL 12.5 MG TABLET PO SCH (08:54)
[2017-07-05] MEDS: hydroCHLOROthiazide 12.5 MG CAPSULE PO SCH (08:54)
[2017-07-05] MEDS: METHENAMINE HIPPURATE 1 GM TABLET PO SCH (08:54)
[2017-07-05] MEDS: ASCORBIC ACID 500 MG TABLET PO SCH (08:55)
[2017-07-05] MEDS: ENOXAPARIN 40 MG/0.4 ML SYRINGE SUBCUT SCH (08:55)
[2017-07-05] MEDS: ASPIRIN EC 81 MG TABLET PO SCH (08:55)
[2017-07-05 10:20] VITALS: BP 162/72
== END 2017-07-05 11:45 | disposition home or self-care (01) | DRG 683 ==
LOC: EDBD → EDUNIT# → N.ED 21:33 → N.EDINP 07-02 00:09 → N.TELEN 07-02 00:47
PROVIDERS: ADMIT Internal Medicine; ATTEND Internal Medicine

== ENCOUNTER 2017-09-01 14:37 | Inpatient (IN) ==
[2017-09-01] MEDS ORDERED: ASPIRIN 325 MG TABLET PO STA (15:42)
[2017-09-01] MEDS ORDERED: KETOROLAC 30 MG/1 ML VIAL IV STA (15:42)
[2017-09-01] MEDS ORDERED: ONDANSETRON 4 MG/2 ML VIAL IV STA (15:42)
[2017-09-01 16:11] LABS: Basophils % 0.3 % (0.0-0.8); Eosinophils # 0.1 10*3/uL (0.0-0.87); Eosinophils % 0.9 % (0.00-10.9); Hematocrit 35.4 VOL% (35.7-47.0); Hemoglobin 11.6 GM/DL (12.0-16.0); Immature Granulocytes % 0.9 %; Immature Granulocytes Absolute 0.09 #; Lymphocytes # 1.5 10*3/uL (1.4-4.0); Lymphocytes % 14.4 % (21.3-54.2); Mean Corpuscular HGB Conc 32.8 GM/DL (32-36); Mean Corpuscular Hemoglobin 29 PG (27-34); Mean Corpuscular Volume 88.3 FL (87-102); Mean Platelet Volume 10.9 FL (9.6-12.0); Monocytes # 0.9 10*3/uL (0.11-0.8); Monocytes % 8.3 % (1.7-12.7); Neutrophils # 7.9 10*3/uL (1.4-7.4); Neutrophils % 75.2 % (38.7-73.9); Platelet Count 264 T/CUMM (130-400); Red Blood Count 4.01 MC/CUMM (3.8-5.5); Red Cell Distribution Width 15.5 % (9.3-17.3); White Blood Count 10.5 T/CUMM (4-12)
[2017-09-01 16:28] LABS: PT Patient Result 10.8 SECS; Partial Thromboplastin Time 25.5 SECS (0-40)
[2017-09-01 16:39] LABS: Albumin 3.2 G/DL (3.4-5.0); Bilirubin,Total 0.6 MG/DL (0.2-1.0); Calcium 8.9 MG/DL (8.5-10.1); Osmolality,Calculated 280.1 MOS/KG (273-304); Potassium 3.7 MMOL/L (3.5-5.1); Total Protein 7.3 G/DL (6.4-8.3)
[2017-09-01 16:43] LABS: Troponin I Only < 0.015 NG/ML (0.00-0.045)
[2017-09-01] MEDS ORDERED: GLUCAGON 1 MG VIAL IM PRN (18:00)
[2017-09-01] MEDS ORDERED: DEXTROSE 50% 25 GM/50 ML VIAL IV PRN (18:00)
[2017-09-01] MEDS ORDERED: ACETAMINOPHEN 325 MG TABLET PO PRN ×2 (18:00→18:03)
[2017-09-01] MEDS ORDERED: ONDANSETRON 4 MG/2 ML VIAL IV PRN (18:00)
[2017-09-01] MEDS ORDERED: oxyCODONE/ACETAMINOPHEN 5-325 MG TABLET PO PRN (18:03)
[2017-09-01] MEDS ORDERED: tiZANidine 4 MG TABLET PO PRN (18:03)
[2017-09-01] MEDS ORDERED: ALBUTEROL 2.5 MG/3 ML NEB RESP TX PRN (18:03)
[2017-09-01] MEDS ORDERED: ONDANSETRON ODT 4 MG TABLET PO PRN (18:03)
[2017-09-01] MEDS ORDERED: ENOXAPARIN 80 MG/0.8 ML SYRINGE SUBCUT ONE (20:04)
[2017-09-01] MEDS: METHENAMINE HIPPURATE 1 GM TABLET PO SCH (21:17)
[2017-09-01] MEDS: SODIUM CHLORIDE 0.9% 1,000 ML IV SCH (21:17)
[2017-09-01] MEDS: SIMVASTATIN 40 MG TABLET PO SCH (21:18)
[2017-09-01] MEDS: MIRTAZAPINE 30 MG TABLET PO SCH (21:18)
[2017-09-01] MEDS: CARVEDILOL 12.5 MG TABLET PO SCH (21:18)
[2017-09-01] MEDS: METOPROLOL TARTRATE 25 MG TABLET PO SCH (21:18)
[2017-09-01] MEDS: DOCUSATE SODIUM 100 MG CAPSULE PO SCH (21:18)
[2017-09-01] MEDS: ASPIRIN EC 81 MG TABLET PO SCH (21:22)
[2017-09-01] MEDS: INSULIN REGULAR 100 UNIT/ML SUBCUT SCH (21:59)
[2017-09-02 02:40] LABS: Basophils % 0.5 % (0.0-0.8); Eosinophils # 0.1 10*3/uL (0.0-0.87); Eosinophils % 2.3 % (0.00-10.9); Hemoglobin 9.7 GM/DL (12.0-16.0); Immature Granulocytes % 0.8 %; Immature Granulocytes Absolute 0.05 #; Lymphocytes # 1.4 10*3/uL (1.4-4.0); Mean Corpuscular HGB Conc 33.4 GM/DL (32-36); Mean Corpuscular Hemoglobin 29 PG (27-34); Mean Corpuscular Volume 86.6 FL (87-102); Mean Platelet Volume 11.1 FL (9.6-12.0); Monocytes # 0.6 10*3/uL (0.11-0.8); Monocytes % 9.9 % (1.7-12.7); Neutrophils # 3.7 10*3/uL (1.4-7.4); Neutrophils % 62.5 % (38.7-73.9); Platelet Count 213 T/CUMM (130-400); Red Blood Count 3.35 MC/CUMM (3.8-5.5); Red Cell Distribution Width 15.4 % (9.3-17.3)
[2017-09-02 03:06] LABS: Albumin 2.6 G/DL (3.4-5.0); Bilirubin,Total 0.4 MG/DL (0.2-1.0); Calcium 8.1 MG/DL (8.5-10.1); Potassium 4.6 MMOL/L (3.5-5.1); Total Protein 5.8 G/DL (6.4-8.3)
[2017-09-02] MEDS ORDERED: hydroCHLOROthiazide 12.5 MG CAPSULE PO SCH (09:00)
[2017-09-02] MEDS: INSULIN REGULAR 100 UNIT/ML SUBCUT SCH ×4 (09:06→21:40)
[2017-09-02] MEDS: methIMAzole 10 MG TABLET PO SCH (09:14)
[2017-09-02] MEDS: METHENAMINE HIPPURATE 1 GM TABLET PO SCH ×2 (09:14→21:40)
[2017-09-02] MEDS: AMIODARONE 200 MG TABLET PO SCH (09:15)
[2017-09-02] MEDS: CARVEDILOL 12.5 MG TABLET PO SCH ×2 (09:15→21:40)
[2017-09-02] MEDS: DOCUSATE SODIUM 100 MG CAPSULE PO SCH ×2 (09:15→21:40)
[2017-09-02] MEDS: PANTOPRAZOLE 40 MG TABLET PO SCH (09:15)
[2017-09-02] MEDS: METOPROLOL TARTRATE 25 MG TABLET PO SCH ×2 (09:16→21:39)
[2017-09-02] MEDS: SODIUM CHLORIDE 0.9% 1,000 ML IV SCH ×2 (09:16→16:06)
[2017-09-02] MEDS: MIRTAZAPINE 30 MG TABLET PO SCH (21:39)
[2017-09-02] MEDS: ASPIRIN EC 81 MG TABLET PO SCH (21:39)
[2017-09-02] MEDS: SIMVASTATIN 40 MG TABLET PO SCH (21:40)
[2017-09-03] MEDS: SODIUM CHLORIDE 0.9% 1,000 ML IV SCH ×3 (00:06→16:39)
[2017-09-03 06:29] LABS: Calcium 7.7 MG/DL (8.5-10.1); Osmolality,Calculated 285.5 MOS/KG (273-304); Potassium 3.8 MMOL/L (3.5-5.1)
[2017-09-03] MEDS: INSULIN REGULAR 100 UNIT/ML SUBCUT SCH ×4 (08:43→22:04)
[2017-09-03] MEDS: METOPROLOL TARTRATE 25 MG TABLET PO SCH ×2 (09:29→20:37)
[2017-09-03] MEDS: AMIODARONE 200 MG TABLET PO SCH (09:29)
[2017-09-03] MEDS: PANTOPRAZOLE 40 MG TABLET PO SCH (09:29)
[2017-09-03] MEDS: DOCUSATE SODIUM 100 MG CAPSULE PO SCH ×2 (09:29→20:38)
[2017-09-03] MEDS: METHENAMINE HIPPURATE 1 GM TABLET PO SCH ×2 (09:29→20:38)
[2017-09-03] MEDS: CARVEDILOL 12.5 MG TABLET PO SCH ×2 (09:29→20:38)
[2017-09-03] MEDS: methIMAzole 10 MG TABLET PO SCH (09:33)
[2017-09-03 10:15] LABS: Apearance,Urine CLEAR (Clear); Bilirubin,Urine Negative (Negative); Blood, Urine Negative (Negative); Glucose,Urine (UA) Negative (Negative); Ketones,Urine Negative (Negative); Mucus,Urine Occasional /LPF (Occasional); Nitrite,Urine Negative (Negative); Protein,Urine Negative; Urine Color Yellow (Yellow); Urine Specific Gravity 1.006 (1.001-1.035); Urine Urobilinogen < 2.0 EU/DL (0.2-1.0); WBC,Urine <1 /HPF (0-6)
[2017-09-03] MEDS: MIRTAZAPINE 30 MG TABLET PO SCH (20:37)
[2017-09-03] MEDS: SIMVASTATIN 40 MG TABLET PO SCH (20:38)
[2017-09-03] MEDS: ASPIRIN EC 81 MG TABLET PO SCH (20:38)
[2017-09-03] MEDS: traMADol 50 MG TABLET PO PRN (22:06)
[2017-09-04] MEDS: SODIUM CHLORIDE 0.9% 1,000 ML IV SCH ×2 (01:07→11:27)
[2017-09-04] MEDS: INSULIN REGULAR 100 UNIT/ML SUBCUT SCH (07:43)
[2017-09-04 08:15] VITALS: BP 117/58
[2017-09-04] MEDS: METOPROLOL TARTRATE 25 MG TABLET PO SCH (08:41)
[2017-09-04] MEDS: METHENAMINE HIPPURATE 1 GM TABLET PO SCH (08:41)
[2017-09-04] MEDS: methIMAzole 10 MG TABLET PO SCH (08:41)
[2017-09-04] MEDS: AMIODARONE 200 MG TABLET PO SCH (08:42)
[2017-09-04] MEDS: DOCUSATE SODIUM 100 MG CAPSULE PO SCH (08:42)
[2017-09-04] MEDS: traMADol 50 MG TABLET PO PRN (08:42)
[2017-09-04] MEDS: PANTOPRAZOLE 40 MG TABLET PO SCH (08:42)
[2017-09-04] MEDS: CARVEDILOL 12.5 MG TABLET PO SCH (08:42)
[2017-09-04 09:10] LABS: Calcium 7.7 MG/DL (8.5-10.1); Osmolality,Calculated 283.4 MOS/KG (273-304); Potassium 4.3 MMOL/L (3.5-5.1)
== END 2017-09-04 12:28 | disposition home or self-care (01) | DRG 684 ==
LOC: N.EDINP 14:37 → N.ED 14:37 → N.TELEN 19:38
PROVIDERS: ADMIT Internal Medicine Geriatric Medicine; ATTEND Internal Medicine Geriatric Medicine

== ENCOUNTER 2018-03-21 00:13 | Observation (INO) ==
[2018-03-21 00:39] LABS: Basophils # 0.1 10*3/uL (0.0-0.2); Basophils % 0.9 % (0.0-0.8); Hematocrit 38.4 VOL% (35.7-47.0); Hemoglobin 12.3 GM/DL (12.0-16.0); Immature Granulocytes % 0.9 %; Immature Granulocytes Absolute 0.07 #; Lymphocytes # 2.7 10*3/uL (1.4-4.0); Lymphocytes % 35.4 % (21.3-54.2); Mean Corpuscular Hemoglobin 31 PG (27-34); Mean Platelet Volume 10.4 FL (9.6-12.0); Monocytes # 0.8 10*3/uL (0.11-0.8); Monocytes % 10.1 % (1.7-12.7); Neutrophils % 52.7 % (38.7-73.9); Platelet Count 240 T/CUMM (130-400); Red Blood Count 3.96 MC/CUMM (3.8-5.5); Red Cell Distribution Width 15.7 % (9.3-17.3); White Blood Count 7.5 T/CUMM (4-12)
[2018-03-21] MEDS ORDERED: NITROGLYCERIN SL 0.4 MG TABLET SL STA (00:42)
[2018-03-21] MEDS ORDERED: ASPIRIN CHEW 81 MG TABLET PO STA (00:42)
[2018-03-21 00:58] LABS: Albumin 3.7 G/DL (3.4-5.0); Bilirubin,Total 0.4 MG/DL (0.2-1.0); Osmolality,Calculated 289.3 MOS/KG (273-304); Potassium 4.1 MMOL/L (3.5-5.1); Total Protein 7.5 G/DL (6.4-8.3)
[2018-03-21] MEDS ORDERED: ENOXAPARIN 100 MG/ML SYRINGE SUBCUT STA (01:20)
[2018-03-21] MEDS ORDERED: ENOXAPARIN 80 MG/0.8 ML SYRINGE SUBCUT ONE (01:40)
[2018-03-21] MEDS ORDERED: GLUCAGON 1 MG VIAL IM PRN (02:01)
[2018-03-21] MEDS ORDERED: DEXTROSE 50% 25 GM/50 ML SYRINGE IV PRN (02:01)
[2018-03-21 07:05] LABS: Risk Ratio 2.51; VLDL CHOLESTEROL 25.8 MG/DL
[2018-03-21] MEDS: NITROGLYCERIN 2% OINT 1 INCH/GM PACK TOP SCH ×4 (07:33→23:41)
[2018-03-21] MEDS: INSULIN REGULAR 100 UNIT/ML SUBCUT SCH ×4 (08:01→20:55)
[2018-03-21] MEDS ORDERED: DIAZEPAM 5 MG TABLET PO ONE (11:16)
[2018-03-21] MEDS ORDERED: diphenhydrAMINE CAP 25 MG CAPSULE PO ONE (11:16)
[2018-03-21] MEDS ORDERED: POTASSIUM CHLORIDE RIDER 10 MEQ in PREMIX 1 EACH IV PRN (11:16)
[2018-03-21] MEDS ORDERED: MAGNESIUM SULF RIDER 2 GM in PREMIX 1 EACH IV PRN (11:16)
[2018-03-21] MEDS: ALBUTEROL/IPRATROPIUM 3 ML NEB RESP TX SCH ×4 (11:21→23:28)
[2018-03-21] MEDS: CARVEDILOL 12.5 MG TABLET PO SCH ×2 (11:39→20:56)
[2018-03-21] MEDS: SODIUM CHLORIDE 0.9% 1,000 ML IV SCH ×3 (11:39→23:57)
[2018-03-21] MEDS ORDERED: HEPARIN/NACL 0.9% 2 UNITS/ML 1,000 ML IV ONE (12:12)
[2018-03-21] MEDS ORDERED: LIDOCAINE 1% 20 ML VIAL ONE (12:12)
[2018-03-21] MEDS ORDERED: MIDAZOLAM 2 MG/2 ML VIAL ONE (12:15)
[2018-03-21] MEDS ORDERED: NITROGLYCERIN DRIP 50 MG/250 ML BOTTLE IV ONE (12:18)
[2018-03-21] MEDS ORDERED: VERAPAMIL 5 MG/2 ML VIAL ONE (12:22)
[2018-03-21] MEDS ORDERED: ADENOSINE 90 MG/30 ML VIAL IV ONE (12:41)
[2018-03-21] MEDS: ASCORBIC ACID 500 MG TABLET PO SCH (20:56)
[2018-03-22] MEDS ORDERED: ENOXAPARIN 80 MG/0.8 ML SYRINGE SUBCUT SCH (01:00)
[2018-03-22] MEDS: ALBUTEROL/IPRATROPIUM 3 ML NEB RESP TX SCH ×4 (03:33→15:52)
[2018-03-22] MEDS: NITROGLYCERIN 2% OINT 1 INCH/GM PACK TOP SCH ×2 (04:59→12:18)
[2018-03-22] MEDS: SODIUM CHLORIDE 0.9% 1,000 ML IV SCH (06:12)
[2018-03-22 06:34] LABS: Osmolality,Calculated 302.6 MOS/KG (273-304)
[2018-03-22 06:34] LABS: Basophils # 0.1 10*3/uL (0.0-0.2); Basophils % 0.9 % (0.0-0.8); Hematocrit 29.7 VOL% (35.7-47.0); Immature Granulocytes % 0.7 %; Immature Granulocytes Absolute 0.04 #; Lymphocytes # 1.7 10*3/uL (1.4-4.0); Lymphocytes % 30.1 % (21.3-54.2); Mean Corpuscular Hemoglobin 31 PG (27-34); Mean Corpuscular Volume 97.1 FL (87-102); Monocytes # 0.7 10*3/uL (0.11-0.8); Monocytes % 13.4 % (1.7-12.7); Neutrophils % 54.9 % (38.7-73.9); Red Cell Distribution Width 15.9 % (9.3-17.3); White Blood Count 5.5 T/CUMM (4-12)
[2018-03-22 06:42] LABS: Hemoglobin 9.5 GM/DL (12.0-16.0); Platelet Count 165 T/CUMM (130-400); Red Blood Count 3.06 MC/CUMM (3.8-5.5)
[2018-03-22 06:53] LABS: Potassium 2.2 MMOL/L (3.5-5.1)
[2018-03-22] MEDS ORDERED: POTASSIUM CHLORIDE RIDER 10 MEQ in PREMIX 1 EACH IV PRN (07:09)
[2018-03-22] MEDS: INSULIN REGULAR 100 UNIT/ML SUBCUT SCH ×2 (09:29→11:47)
[2018-03-22] MEDS: ASCORBIC ACID 500 MG TABLET PO SCH (09:51)
[2018-03-22] MEDS: POTASSIUM CHLORIDE 20 MEQ TABLET PO PRN ×3 (09:51→12:58)
[2018-03-22] MEDS: CARVEDILOL 12.5 MG TABLET PO SCH (09:51)
[2018-03-22 11:58] VITALS: BP 95/50
[2018-03-22 13:28] LABS: Calcium 8.1 MG/DL (8.5-10.1); Osmolality,Calculated 287.1 MOS/KG (273-304); Potassium 4.4 MMOL/L (3.5-5.1)
== END 2018-03-22 16:17 | disposition home or self-care (01) ==
LOC: N.ED 00:13 → N.EDINP 00:13 → N.TELES 02:41
PROVIDERS: ADMIT Internal Medicine; ATTEND Internal Medicine
PROC: CLCCHCL (ICD-10-PCS; 2018-03-21 12:15)

== ENCOUNTER 2018-06-03 17:09 | Inpatient (IN) ==
[2018-06-03] MEDS ORDERED: DEXTROSE 50% 25 GM/50 ML VIAL IV PRN (19:56)
[2018-06-03] MEDS ORDERED: ACETAMINOPHEN 325 MG TABLET PO PRN ×2 (19:56→20:08)
[2018-06-03] MEDS ORDERED: ZALEPLON 5 MG CAPSULE PO PRN (19:56)
[2018-06-03] MEDS ORDERED: GLUCAGON 1 MG VIAL IM PRN (19:56)
[2018-06-03] MEDS ORDERED: oxyCODONE/ACETAMINOPHEN 5-325 MG TABLET PO PRN (20:08)
[2018-06-03 20:50] LABS: Alanine Aminotransferase 11 U/L (13-56); Albumin 2.8 G/DL (3.4-5.0); Alkaline Phosphatase 92 U/L (45-117); Aspartate Amino Transferase 9 U/L (0-37); Bilirubin,Total < 0.39 MG/DL (0.2-1.0); Blood Urea Nitrogen 50 MG/DL (7-18); Calcium 9.2 MG/DL (8.5-10.1); Glucose 82 MG/DL (74-106); Osmolality,Calculated 286.7 MOS/KG (273-304); Potassium 4.4 MMOL/L (3.5-5.1); Sodium 138 MMOL/L (136-145); Total Protein 6.8 G/DL (6.4-8.3)
[2018-06-03 20:52] LABS: Troponin I < 0.015 NG/ML (0.00-0.045)
[2018-06-03 20:59] LABS: Thyroid Stimulating Hormone 5.8 uIU/ml (0.358-3.74)
[2018-06-03] MEDS: ENOXAPARIN 40 MG/0.4 ML SYRINGE SUBCUT SCH (21:26)
[2018-06-03] MEDS: INSULIN REGULAR 100 UNIT/ML SUBCUT SCH (21:27)
[2018-06-03] MEDS: METHENAMINE HIPPURATE 1 GM TABLET PO SCH (21:40)
[2018-06-03] MEDS: ASPIRIN EC 81 MG TABLET PO SCH (21:40)
[2018-06-03] MEDS: CARVEDILOL 12.5 MG TABLET PO SCH (21:40)
[2018-06-03] MEDS: MIRTAZAPINE 30 MG TABLET PO SCH (21:41)
[2018-06-03] MEDS: HYDROXYCHLOROQUINE 200 MG TABLET PO SCH (21:44)
[2018-06-03] MEDS: SIMVASTATIN 40 MG TABLET PO SCH (21:44)
[2018-06-03] MEDS: SODIUM CHLORIDE 0.9% 1,000 ML IV SCH (22:30)
[2018-06-03] MEDS ORDERED: ALBUTEROL 2.5 MG/3 ML NEB RESP TX PRN (23:00)
[2018-06-04 01:25] LABS: Apearance,Urine CLOUDY (Clear); Bacteria,Urine Occasional /HPF (Few); Bilirubin,Urine Negative (Negative); Blood, Urine Negative (Negative); Glucose,Urine (UA) Negative (Negative); Ketones,Urine Negative (Negative); Mucus,Urine Occasional /LPF (Occasional); Nitrite,Urine Negative (Negative); Protein,Urine 30 MG/DL; RBC,Urine 10 /HPF (0-4); Squamous Epithelial Cell,Urine Occasional /HPF (0-10); Urine Color Yellow (Yellow); Urine Urobilinogen < 2.0 EU/DL (0.2-1.0); WBC,Urine 300 /HPF (0-6)
[2018-06-04 05:35] LABS: Basophils # 0.1 10*3/uL (0.0-0.2); Basophils % 0.8 % (0.0-0.8); Eosinophils # 0.2 10*3/uL (0.0-0.87); Eosinophils % 2.6 % (0.00-10.9); Hematocrit 29.8 VOL% (35.7-47.0); Hemoglobin 9.2 GM/DL (12.0-16.0); Immature Granulocytes % 5.3 %; Immature Granulocytes Absolute 0.35 #; Lymphocytes # 1.8 10*3/uL (1.4-4.0); Mean Corpuscular HGB Conc 30.9 GM/DL (32-36); Mean Corpuscular Hemoglobin 29 PG (27-34); Mean Platelet Volume 10.2 FL (9.6-12.0); Monocytes # 0.5 10*3/uL (0.11-0.8); Neutrophils # 3.7 10*3/uL (1.4-7.4); Neutrophils % 56.3 % (38.7-73.9); Platelet Count 342 T/CUMM (130-400); Red Blood Count 3.17 MC/CUMM (3.8-5.5); Red Cell Distribution Width 14.2 % (9.3-17.3); White Blood Count 6.6 T/CUMM (4-12)
[2018-06-04 06:00] LABS: Risk Ratio 2.76; VLDL CHOLESTEROL 32.8 MG/DL
[2018-06-04 06:28] LABS: Band Neutrophils 3 % (0-10); Eosinophils 6 % (0-10); Lymphocytes 25 % (20-55); Segmented Neutrophils 62 % (50-85)
[2018-06-04 06:30] LABS: Platelet Estimate Adequate; Total Cells Counted 100
[2018-06-04] MEDS: INSULIN REGULAR 100 UNIT/ML SUBCUT SCH ×4 (08:21→20:28)
[2018-06-04] MEDS: METHENAMINE HIPPURATE 1 GM TABLET PO SCH ×2 (08:44→20:27)
[2018-06-04] MEDS: methIMAzole 10 MG TABLET PO SCH (08:44)
[2018-06-04] MEDS: PANTOPRAZOLE 40 MG TABLET PO SCH (08:44)
[2018-06-04] MEDS: AMIODARONE 200 MG TABLET PO SCH (08:44)
[2018-06-04] MEDS: CARVEDILOL 12.5 MG TABLET PO SCH ×2 (08:44→17:36)
[2018-06-04] MEDS: HYDROXYCHLOROQUINE 200 MG TABLET PO SCH ×2 (08:44→20:28)
[2018-06-04] MEDS: SODIUM CHLORIDE 0.9% 1,000 ML IV SCH (10:39)
[2018-06-04] MEDS: metroNIDAZOLE INJ 500 MG in PREMIX 1 EACH IV SCH ×2 (12:19→20:25)
[2018-06-04] MEDS ORDERED: LEVOFLOXACIN INJ 500 MG in PREMIX 1 EACH IV ONE (13:00)
[2018-06-04] MEDS: ASPIRIN EC 81 MG TABLET PO SCH (20:27)
[2018-06-04] MEDS: MIRTAZAPINE 30 MG TABLET PO SCH (20:27)
[2018-06-04] MEDS: SIMVASTATIN 40 MG TABLET PO SCH (20:28)
[2018-06-04] MEDS: ENOXAPARIN 40 MG/0.4 ML SYRINGE SUBCUT SCH (20:29)
[2018-06-05] MEDS: SODIUM CHLORIDE 0.9% 1,000 ML IV SCH ×2 (00:10→16:04)
[2018-06-05] MEDS: metroNIDAZOLE INJ 500 MG in PREMIX 1 EACH IV SCH ×3 (03:53→20:38)
[2018-06-05 05:29] LABS: Calcium 8.3 MG/DL (8.5-10.1); Osmolality,Calculated 289.1 MOS/KG (273-304); Potassium 4.5 MMOL/L (3.5-5.1)
[2018-06-05] MEDS: INSULIN REGULAR 100 UNIT/ML SUBCUT SCH ×4 (07:43→20:38)
[2018-06-05] MEDS: AMIODARONE 200 MG TABLET PO SCH (09:07)
[2018-06-05] MEDS: PANTOPRAZOLE 40 MG TABLET PO SCH (09:07)
[2018-06-05] MEDS: methIMAzole 10 MG TABLET PO SCH (09:07)
[2018-06-05] MEDS: HYDROXYCHLOROQUINE 200 MG TABLET PO SCH ×2 (09:07→20:41)
[2018-06-05] MEDS: CARVEDILOL 12.5 MG TABLET PO SCH ×2 (09:07→17:08)
[2018-06-05] MEDS: METHENAMINE HIPPURATE 1 GM TABLET PO SCH ×2 (09:07→20:41)
[2018-06-05] MEDS ORDERED: VANCOMYCIN INJ 1,000 MG in SODIUM CHLORIDE 0.9% 250 ML IV ONE (11:00)
[2018-06-05] MEDS: SIMVASTATIN 40 MG TABLET PO SCH (20:41)
[2018-06-05] MEDS: ASPIRIN EC 81 MG TABLET PO SCH (20:41)
[2018-06-05] MEDS: MIRTAZAPINE 30 MG TABLET PO SCH (20:41)
[2018-06-05] MEDS: ENOXAPARIN 40 MG/0.4 ML SYRINGE SUBCUT SCH (20:42)
[2018-06-06] MEDS: metroNIDAZOLE INJ 500 MG in PREMIX 1 EACH IV SCH ×3 (04:13→21:20)
[2018-06-06 06:16] LABS: Basophils % 0.6 % (0.0-0.8); Eosinophils # 0.2 10*3/uL (0.0-0.87); Eosinophils % 2.3 % (0.00-10.9); Hematocrit 27.4 VOL% (35.7-47.0); Hemoglobin 8.5 GM/DL (12.0-16.0); Immature Granulocytes % 3.4 %; Immature Granulocytes Absolute 0.23 #; Lymphocytes # 1.4 10*3/uL (1.4-4.0); Lymphocytes % 20.9 % (21.3-54.2); Mean Corpuscular Hemoglobin 29 PG (27-34); Mean Corpuscular Volume 92.9 FL (87-102); Mean Platelet Volume 10.5 FL (9.6-12.0); Monocytes # 0.8 10*3/uL (0.11-0.8); Monocytes % 11.3 % (1.7-12.7); Neutrophils # 4.2 10*3/uL (1.4-7.4); Neutrophils % 61.5 % (38.7-73.9); Platelet Count 288 T/CUMM (130-400); Red Blood Count 2.95 MC/CUMM (3.8-5.5); Red Cell Distribution Width 14.6 % (9.3-17.3); White Blood Count 6.8 T/CUMM (4-12)
[2018-06-06 06:35] LABS: Calcium 8.2 MG/DL (8.5-10.1); Osmolality,Calculated 288.8 MOS/KG (273-304); Potassium 4.1 MMOL/L (3.5-5.1)
[2018-06-06] MEDS: CARVEDILOL 12.5 MG TABLET PO SCH ×2 (08:56→17:02)
[2018-06-06] MEDS: methIMAzole 10 MG TABLET PO SCH (08:56)
[2018-06-06] MEDS: METHENAMINE HIPPURATE 1 GM TABLET PO SCH ×2 (08:56→21:21)
[2018-06-06] MEDS: PANTOPRAZOLE 40 MG TABLET PO SCH (08:56)
[2018-06-06] MEDS: AMIODARONE 200 MG TABLET PO SCH (08:56)
[2018-06-06] MEDS: HYDROXYCHLOROQUINE 200 MG TABLET PO SCH ×2 (08:56→21:21)
[2018-06-06] MEDS: INSULIN REGULAR 100 UNIT/ML SUBCUT SCH ×4 (08:57→21:22)
[2018-06-06] MEDS: DEXT 5% NACL 0.45% KCL 20 MEQ 20 MEQ/1,000 ML BAG IV SCH ×2 (10:27→21:36)
[2018-06-06 12:47] LABS: Free T4 (Free Thyroxine) 0.97 NG/DL (0.76-1.46)
[2018-06-06] MEDS ORDERED: LEVOFLOXACIN INJ 250 MG in PREMIX 1 EACH IV SCH (13:00)
[2018-06-06] MEDS ORDERED: TUBERCULIN SKIN TEST 0.1 ML SYRINGE INTRADERM ONE (17:31)
[2018-06-06] MEDS: SIMVASTATIN 40 MG TABLET PO SCH (21:21)
[2018-06-06] MEDS: ASPIRIN EC 81 MG TABLET PO SCH (21:21)
[2018-06-06] MEDS: MIRTAZAPINE 30 MG TABLET PO SCH (21:21)
[2018-06-06] MEDS: ENOXAPARIN 40 MG/0.4 ML SYRINGE SUBCUT SCH (21:22)
[2018-06-07] MEDS: DEXT 5% NACL 0.45% KCL 20 MEQ 20 MEQ/1,000 ML BAG IV SCH ×3 (03:39→18:44)
[2018-06-07] MEDS: metroNIDAZOLE INJ 500 MG in PREMIX 1 EACH IV SCH ×3 (04:14→21:45)
[2018-06-07 04:59] LABS: Basophils % 0.3 % (0.0-0.8); Eosinophils # 0.3 10*3/uL (0.0-0.87); Eosinophils % 4.7 % (0.00-10.9); Hematocrit 27.2 VOL% (35.7-47.0); Hemoglobin 8.3 GM/DL (12.0-16.0); Immature Granulocytes % 3.5 %; Lymphocytes # 1.6 10*3/uL (1.4-4.0); Lymphocytes % 27.4 % (21.3-54.2); Mean Corpuscular HGB Conc 30.5 GM/DL (32-36); Mean Corpuscular Hemoglobin 29 PG (27-34); Mean Corpuscular Volume 94.1 FL (87-102); Mean Platelet Volume 10.5 FL (9.6-12.0); Monocytes # 0.8 10*3/uL (0.11-0.8); Neutrophils # 2.9 10*3/uL (1.4-7.4); Neutrophils % 51.1 % (38.7-73.9); Platelet Count 254 T/CUMM (130-400); Red Blood Count 2.89 MC/CUMM (3.8-5.5); Red Cell Distribution Width 14.6 % (9.3-17.3); White Blood Count 5.8 T/CUMM (4-12)
[2018-06-07 05:27] LABS: Alanine Aminotransferase < 6 U/L (13-56); Albumin 2.2 G/DL (3.4-5.0); Alkaline Phosphatase 69 U/L (45-117); Aspartate Amino Transferase 10 U/L (0-37); Blood Urea Nitrogen 16 MG/DL (7-18); Calcium 8.3 MG/DL (8.5-10.1); Glucose 124 MG/DL (74-106); Osmolality,Calculated 287.8 MOS/KG (273-304); Potassium 4.8 MMOL/L (3.5-5.1); Sodium 144 MMOL/L (136-145); Total Protein 5.3 G/DL (6.4-8.3)
[2018-06-07] MEDS: INSULIN REGULAR 100 UNIT/ML SUBCUT SCH ×4 (08:37→23:47)
[2018-06-07] MEDS ORDERED: MAGNESIUM SULF RIDER 2 GM in PREMIX 1 EACH IV ONE (09:46)
[2018-06-07] MEDS: CARVEDILOL 12.5 MG TABLET PO SCH ×2 (10:07→17:30)
[2018-06-07] MEDS: HYDROXYCHLOROQUINE 200 MG TABLET PO SCH ×2 (10:08→21:39)
[2018-06-07] MEDS: METHENAMINE HIPPURATE 1 GM TABLET PO SCH ×2 (10:08→21:38)
[2018-06-07] MEDS: methIMAzole 10 MG TABLET PO SCH (10:08)
[2018-06-07] MEDS: AMIODARONE 200 MG TABLET PO SCH (10:08)
[2018-06-07] MEDS: PANTOPRAZOLE 40 MG TABLET PO SCH (10:08)
[2018-06-07] MEDS: ASPIRIN EC 81 MG TABLET PO SCH (21:38)
[2018-06-07] MEDS: MIRTAZAPINE 30 MG TABLET PO SCH (21:38)
[2018-06-07] MEDS: SIMVASTATIN 40 MG TABLET PO SCH (21:39)
[2018-06-07] MEDS: ENOXAPARIN 40 MG/0.4 ML SYRINGE SUBCUT SCH (21:39)
[2018-06-08] MEDS: DEXT 5% NACL 0.45% KCL 20 MEQ 20 MEQ/1,000 ML BAG IV SCH ×4 (04:18→16:51)
[2018-06-08] MEDS: metroNIDAZOLE INJ 500 MG in PREMIX 1 EACH IV SCH ×2 (04:19→20:24)
[2018-06-08 05:51] LABS: Basophils % 0.6 % (0.0-0.8); Eosinophils # 0.3 10*3/uL (0.0-0.87); Hematocrit 28.2 VOL% (35.7-47.0); Hemoglobin 8.8 GM/DL (12.0-16.0); Immature Granulocytes % 2.1 %; Immature Granulocytes Absolute 0.11 #; Lymphocytes # 1.4 10*3/uL (1.4-4.0); Lymphocytes % 26.4 % (21.3-54.2); Mean Corpuscular HGB Conc 31.2 GM/DL (32-36); Mean Corpuscular Hemoglobin 30 PG (27-34); Mean Corpuscular Volume 94.6 FL (87-102); Mean Platelet Volume 10.6 FL (9.6-12.0); Monocytes # 0.7 10*3/uL (0.11-0.8); Monocytes % 14.3 % (1.7-12.7); Neutrophils # 2.6 10*3/uL (1.4-7.4); Neutrophils % 50.6 % (38.7-73.9); Platelet Count 251 T/CUMM (130-400); Red Blood Count 2.98 MC/CUMM (3.8-5.5); Red Cell Distribution Width 14.8 % (9.3-17.3); White Blood Count 5.2 T/CUMM (4-12)
[2018-06-08 05:55] LABS: Calcium 8.2 MG/DL (8.5-10.1); Osmolality,Calculated 281.1 MOS/KG (273-304); Potassium 4.8 MMOL/L (3.5-5.1)
[2018-06-08 06:50] LABS: Calcium 8.2 MG/DL (8.5-10.1); Osmolality,Calculated 281.1 MOS/KG (273-304); Potassium 4.8 MMOL/L (3.5-5.1)
[2018-06-08] MEDS: ONDANSETRON 4 MG/2 ML VIAL IV PRN (08:25)
[2018-06-08] MEDS: INSULIN REGULAR 100 UNIT/ML SUBCUT SCH ×4 (09:10→21:00)
[2018-06-08] MEDS: CARVEDILOL 12.5 MG TABLET PO SCH ×2 (10:42→17:56)
[2018-06-08] MEDS: METHENAMINE HIPPURATE 1 GM TABLET PO SCH ×2 (10:43→20:26)
[2018-06-08] MEDS: AMIODARONE 200 MG TABLET PO SCH (10:43)
[2018-06-08] MEDS: PANTOPRAZOLE 40 MG TABLET PO SCH (10:43)
[2018-06-08] MEDS: methIMAzole 10 MG TABLET PO SCH (10:43)
[2018-06-08] MEDS: HYDROXYCHLOROQUINE 200 MG TABLET PO SCH ×2 (10:43→20:26)
[2018-06-08] MEDS ORDERED: LEVOFLOXACIN 500 MG TABLET PO SCH (12:00)
[2018-06-08] MEDS: metroNIDAZOLE 500 MG TABLET PO SCH ×2 (13:28→17:56)
[2018-06-08] MEDS: SODIUM CHLORIDE 0.9% 1,000 ML IV SCH (16:23)
[2018-06-08] MEDS: MIRTAZAPINE 30 MG TABLET PO SCH (20:26)
[2018-06-08] MEDS: ENOXAPARIN 40 MG/0.4 ML SYRINGE SUBCUT SCH (20:26)
[2018-06-08] MEDS: SIMVASTATIN 40 MG TABLET PO SCH (20:30)
[2018-06-08] MEDS: CIPROFLOXACIN INJ 400 MG in PREMIX 1 EACH IV SCH (21:59)
[2018-06-08] MEDS: ASPIRIN EC 81 MG TABLET PO SCH (22:49)
[2018-06-09] MEDS: ONDANSETRON 4 MG/2 ML VIAL IV PRN (01:37)
[2018-06-09] MEDS: DEXT 5% NACL 0.45% KCL 20 MEQ 20 MEQ/1,000 ML BAG IV SCH ×3 (03:33→19:04)
[2018-06-09] MEDS: metroNIDAZOLE INJ 500 MG in PREMIX 1 EACH IV SCH ×3 (03:36→20:44)
[2018-06-09 05:48] LABS: Basophils % 0.3 % (0.0-0.8); Eosinophils # 0.1 10*3/uL (0.0-0.87); Eosinophils % 1.6 % (0.00-10.9); Hematocrit 26.1 VOL% (35.7-47.0); Hemoglobin 8.2 GM/DL (12.0-16.0); Immature Granulocytes % 1.1 %; Immature Granulocytes Absolute 0.07 #; Lymphocytes # 1.3 10*3/uL (1.4-4.0); Lymphocytes % 20.2 % (21.3-54.2); Mean Corpuscular HGB Conc 31.4 GM/DL (32-36); Mean Corpuscular Hemoglobin 29 PG (27-34); Mean Corpuscular Volume 93.5 FL (87-102); Mean Platelet Volume 10.7 FL (9.6-12.0); Monocytes # 0.8 10*3/uL (0.11-0.8); Monocytes % 13.4 % (1.7-12.7); Neutrophils % 63.4 % (38.7-73.9); Platelet Count 236 T/CUMM (130-400); Red Blood Count 2.79 MC/CUMM (3.8-5.5); Red Cell Distribution Width 14.8 % (9.3-17.3); White Blood Count 6.3 T/CUMM (4-12)
[2018-06-09 06:06] LABS: Calcium 7.8 MG/DL (8.5-10.1); Osmolality,Calculated 271.7 MOS/KG (273-304); Potassium 4.8 MMOL/L (3.5-5.1)
[2018-06-09 06:17] LABS: Alanine Aminotransferase < 9 U/L (13-56); Albumin 2.1 G/DL (3.4-5.0); Alkaline Phosphatase 68 U/L (45-117); Aspartate Amino Transferase 8 U/L (0-37); Bilirubin,Total < 0.39 MG/DL (0.2-1.0); Blood Urea Nitrogen 5 MG/DL (7-18); Calcium 7.9 MG/DL (8.5-10.1); Glucose 100 MG/DL (74-106); Osmolality,Calculated 271.7 MOS/KG (273-304); Potassium 4.8 MMOL/L (3.5-5.1); Sodium 138 MMOL/L (136-145); Total Protein 5.1 G/DL (6.4-8.3)
[2018-06-09] MEDS: INSULIN REGULAR 100 UNIT/ML SUBCUT SCH ×4 (08:49→20:27)
[2018-06-09] MEDS: METHENAMINE HIPPURATE 1 GM TABLET PO SCH ×2 (09:10→20:46)
[2018-06-09] MEDS: CARVEDILOL 12.5 MG TABLET PO SCH ×2 (09:10→17:16)
[2018-06-09] MEDS: AMIODARONE 200 MG TABLET PO SCH (09:10)
[2018-06-09] MEDS: methIMAzole 10 MG TABLET PO SCH (09:10)
[2018-06-09] MEDS: PANTOPRAZOLE 40 MG TABLET PO SCH (09:10)
[2018-06-09] MEDS: HYDROXYCHLOROQUINE 200 MG TABLET PO SCH ×2 (09:10→20:46)
[2018-06-09] MEDS: CIPROFLOXACIN INJ 400 MG in PREMIX 1 EACH IV SCH ×2 (09:11→22:26)
[2018-06-09 12:57] LABS: Apearance,Urine CLEAR (Clear); Bilirubin,Urine Negative (Negative); Blood, Urine Negative (Negative); Glucose,Urine (UA) Negative (Negative); Ketones,Urine Negative (Negative); Nitrite,Urine Negative (Negative); Protein,Urine Negative; Urine Color Yellow (Yellow); Urine Specific Gravity 1.019 (1.001-1.035); Urine Urobilinogen < 2.0 EU/DL (0.2-1.0); WBC,Urine 3 /HPF (0-6)
[2018-06-09] MEDS: ASPIRIN EC 81 MG TABLET PO SCH (20:46)
[2018-06-09] MEDS: SIMVASTATIN 40 MG TABLET PO SCH (20:46)
[2018-06-09] MEDS: MIRTAZAPINE 30 MG TABLET PO SCH (20:46)
[2018-06-09] MEDS: ENOXAPARIN 40 MG/0.4 ML SYRINGE SUBCUT SCH (20:47)
[2018-06-10] MEDS: DEXT 5% NACL 0.45% KCL 20 MEQ 20 MEQ/1,000 ML BAG IV SCH ×3 (03:06→20:59)
[2018-06-10] MEDS: metroNIDAZOLE INJ 500 MG in PREMIX 1 EACH IV SCH ×3 (04:28→21:01)
[2018-06-10] MEDS: ONDANSETRON 4 MG/2 ML VIAL IV PRN ×3 (04:32→21:00)
[2018-06-10 05:06] LABS: % Iron Saturation 20.7 % (18-50); Ferritin 103.1 ng/ml (8-252)
[2018-06-10] MEDS ORDERED: BISACODYL 10 MG SUPP RECTAL ONE (06:37)
[2018-06-10] MEDS ORDERED: IRON SUCROSE 300 MG in SODIUM CHLORIDE 0.9% 100 ML IV ONE (08:00)
[2018-06-10] MEDS: METHENAMINE HIPPURATE 1 GM TABLET PO SCH ×2 (08:01→21:00)
[2018-06-10] MEDS: HYDROXYCHLOROQUINE 200 MG TABLET PO SCH ×2 (08:01→21:00)
[2018-06-10] MEDS: AMIODARONE 200 MG TABLET PO SCH (08:01)
[2018-06-10] MEDS: PANTOPRAZOLE 40 MG TABLET PO SCH (08:01)
[2018-06-10] MEDS: CIPROFLOXACIN INJ 400 MG in PREMIX 1 EACH IV SCH ×2 (08:01→23:04)
[2018-06-10] MEDS: methIMAzole 10 MG TABLET PO SCH (08:01)
[2018-06-10] MEDS: CARVEDILOL 12.5 MG TABLET PO SCH ×2 (08:01→17:26)
[2018-06-10] MEDS: INSULIN REGULAR 100 UNIT/ML SUBCUT SCH ×4 (08:01→23:03)
[2018-06-10] MEDS: POLYETHYLENE GLYCOL POWDER 17 GM PACK PO SCH (12:56)
[2018-06-10] MEDS: MIRTAZAPINE 30 MG TABLET PO SCH (21:00)
[2018-06-10] MEDS: ASPIRIN EC 81 MG TABLET PO SCH (21:00)
[2018-06-10] MEDS: ENOXAPARIN 40 MG/0.4 ML SYRINGE SUBCUT SCH (21:00)
[2018-06-10] MEDS: SIMVASTATIN 40 MG TABLET PO SCH (21:00)
[2018-06-11] MEDS: metroNIDAZOLE INJ 500 MG in PREMIX 1 EACH IV SCH ×3 (05:08→21:36)
[2018-06-11] MEDS: INSULIN REGULAR 100 UNIT/ML SUBCUT SCH ×4 (07:31→21:38)
[2018-06-11] MEDS: POLYETHYLENE GLYCOL POWDER 17 GM PACK PO SCH (08:01)
[2018-06-11] MEDS: CIPROFLOXACIN INJ 400 MG in PREMIX 1 EACH IV SCH (08:01)
[2018-06-11] MEDS: HYDROXYCHLOROQUINE 200 MG TABLET PO SCH ×2 (08:02→21:38)
[2018-06-11] MEDS: CARVEDILOL 12.5 MG TABLET PO SCH ×2 (08:02→17:30)
[2018-06-11] MEDS: PANTOPRAZOLE 40 MG TABLET PO SCH (08:02)
[2018-06-11] MEDS: methIMAzole 10 MG TABLET PO SCH (08:02)
[2018-06-11] MEDS: METHENAMINE HIPPURATE 1 GM TABLET PO SCH ×2 (08:02→21:38)
[2018-06-11] MEDS: AMIODARONE 200 MG TABLET PO SCH (08:02)
[2018-06-11] MEDS: DEXT 5% NACL 0.45% KCL 20 MEQ 20 MEQ/1,000 ML BAG IV SCH ×3 (11:58→21:36)
[2018-06-11] MEDS: ONDANSETRON 4 MG/2 ML VIAL IV PRN ×3 (11:59→22:01)
[2018-06-11] MEDS: ENOXAPARIN 40 MG/0.4 ML SYRINGE SUBCUT SCH (21:37)
[2018-06-11] MEDS: ASPIRIN EC 81 MG TABLET PO SCH (21:38)
[2018-06-11] MEDS: MIRTAZAPINE 30 MG TABLET PO SCH (21:38)
[2018-06-11] MEDS: SIMVASTATIN 40 MG TABLET PO SCH (21:38)
[2018-06-12] MEDS: CIPROFLOXACIN INJ 400 MG in PREMIX 1 EACH IV SCH ×2 (01:03→08:02)
[2018-06-12] MEDS: ONDANSETRON 4 MG/2 ML VIAL IV PRN ×4 (01:41→21:39)
[2018-06-12] MEDS: metroNIDAZOLE INJ 500 MG in PREMIX 1 EACH IV SCH ×3 (04:41→21:27)
[2018-06-12 05:36] LABS: Basophils % 0.7 % (0.0-0.8); Eosinophils # 0.2 10*3/uL (0.0-0.87); Eosinophils % 3.3 % (0.00-10.9); Hematocrit 25.1 VOL% (35.7-47.0); Hemoglobin 7.9 GM/DL (12.0-16.0); Immature Granulocytes % 1.6 %; Immature Granulocytes Absolute 0.07 #; Lymphocytes # 1.3 10*3/uL (1.4-4.0); Lymphocytes % 28.1 % (21.3-54.2); Mean Corpuscular HGB Conc 31.5 GM/DL (32-36); Mean Corpuscular Hemoglobin 29 PG (27-34); Mean Corpuscular Volume 91.3 FL (87-102); Mean Platelet Volume 10.7 FL (9.6-12.0); Monocytes # 0.8 10*3/uL (0.11-0.8); Monocytes % 17.4 % (1.7-12.7); Neutrophils # 2.2 10*3/uL (1.4-7.4); Neutrophils % 48.9 % (38.7-73.9); Platelet Count 220 T/CUMM (130-400); Red Blood Count 2.75 MC/CUMM (3.8-5.5); White Blood Count 4.5 T/CUMM (4-12)
[2018-06-12 05:50] LABS: Alanine Aminotransferase < 9 U/L (13-56); Alkaline Phosphatase 68 U/L (45-117); Aspartate Amino Transferase 10 U/L (0-37); Bilirubin,Total < 0.39 MG/DL (0.2-1.0); Blood Urea Nitrogen 2 MG/DL (7-18); Calcium 7.8 MG/DL (8.5-10.1); Glucose 96 MG/DL (74-106); Osmolality,Calculated 263.2 MOS/KG (273-304); Potassium 4.3 MMOL/L (3.5-5.1); Sodium 134 MMOL/L (136-145); Total Protein 4.7 G/DL (6.4-8.3)
[2018-06-12 06:16] LABS: Eosinophils 3 % (0-10); Hypochromasia 1+; Lymphocytes 30 % (20-55); Microcytosis 1+; Platelet Estimate Normal; Segmented Neutrophils 58 % (50-85); Total Cells Counted 100
[2018-06-12] MEDS: INSULIN REGULAR 100 UNIT/ML SUBCUT SCH ×4 (07:19→21:32)
[2018-06-12] MEDS ORDERED: SODIUM CHLORIDE 0.9% 1,000 ML IV PRN (07:56)
[2018-06-12] MEDS ORDERED: ACETAMINOPHEN 325 MG TABLET PO PRN (07:56)
[2018-06-12] MEDS ORDERED: diphenhydrAMINE 50 MG/1 ML VIAL IV ONE (08:00)
[2018-06-12] MEDS ORDERED: FUROSEMIDE 40 MG/4 ML VIAL IV PRN (08:00)
[2018-06-12] MEDS: PANTOPRAZOLE 40 MG TABLET PO SCH (08:01)
[2018-06-12] MEDS: METHENAMINE HIPPURATE 1 GM TABLET PO SCH ×2 (08:01→21:27)
[2018-06-12] MEDS: HYDROXYCHLOROQUINE 200 MG TABLET PO SCH ×2 (08:01→21:27)
[2018-06-12] MEDS: methIMAzole 10 MG TABLET PO SCH (08:01)
[2018-06-12] MEDS: POLYETHYLENE GLYCOL POWDER 17 GM PACK PO SCH (08:01)
[2018-06-12] MEDS: AMIODARONE 200 MG TABLET PO SCH (08:01)
[2018-06-12] MEDS: CARVEDILOL 12.5 MG TABLET PO SCH ×2 (08:02→16:13)
[2018-06-12 08:32] LABS: Hematocrit 27.9 VOL% (35.7-47.0); Hemoglobin 8.8 GM/DL (12.0-16.0)
[2018-06-12] MEDS: DEXT 5% NACL 0.45% KCL 20 MEQ 20 MEQ/1,000 ML BAG IV SCH ×3 (12:38→21:25)
[2018-06-12] MEDS: MIRTAZAPINE 30 MG TABLET PO SCH (21:27)
[2018-06-12] MEDS: ASPIRIN EC 81 MG TABLET PO SCH (21:27)
[2018-06-12] MEDS: SIMVASTATIN 40 MG TABLET PO SCH (21:27)
[2018-06-12] MEDS: ENOXAPARIN 40 MG/0.4 ML SYRINGE SUBCUT SCH (21:35)
[2018-06-13] MEDS: CIPROFLOXACIN INJ 400 MG in PREMIX 1 EACH IV SCH (00:08)
[2018-06-13] MEDS: metroNIDAZOLE INJ 500 MG in PREMIX 1 EACH IV SCH (04:31)
[2018-06-13 05:57] LABS: Basophils % 0.4 % (0.0-0.8); Eosinophils # 0.2 10*3/uL (0.0-0.87); Eosinophils % 3.5 % (0.00-10.9); Hematocrit 25.2 VOL% (35.7-47.0); Hemoglobin 7.9 GM/DL (12.0-16.0); Immature Granulocytes % 1.5 %; Immature Granulocytes Absolute 0.07 #; Lymphocytes # 1.4 10*3/uL (1.4-4.0); Lymphocytes % 29.4 % (21.3-54.2); Mean Corpuscular HGB Conc 31.3 GM/DL (32-36); Mean Corpuscular Hemoglobin 29 PG (27-34); Mean Platelet Volume 10.7 FL (9.6-12.0); Monocytes # 0.8 10*3/uL (0.11-0.8); Monocytes % 17.1 % (1.7-12.7); Neutrophils # 2.2 10*3/uL (1.4-7.4); Neutrophils % 48.1 % (38.7-73.9); Platelet Count 246 T/CUMM (130-400); Red Blood Count 2.74 MC/CUMM (3.8-5.5); White Blood Count 4.6 T/CUMM (4-12)
[2018-06-13 06:21] LABS: Alanine Aminotransferase < 9 U/L (13-56); Alkaline Phosphatase 70 U/L (45-117); Aspartate Amino Transferase 11 U/L (0-37); Band Neutrophils 1 % (0-10); Blood Urea Nitrogen 2 MG/DL (7-18); Calcium 7.8 MG/DL (8.5-10.1); Eosinophils 5 % (0-10); Glucose 89 MG/DL (74-106); Hypochromasia 1+; Lymphocytes 30 % (20-55); Osmolality,Calculated 264.1 MOS/KG (273-304); Ovalocytes Slight; Platelet Estimate Adequate; Segmented Neutrophils 54 % (50-85); Sodium 135 MMOL/L (136-145); Total Cells Counted 100; Total Protein 4.6 G/DL (6.4-8.3)
[2018-06-13 06:22] LABS: Microcytosis 1+
[2018-06-13] MEDS: ONDANSETRON 4 MG/2 ML VIAL IV PRN (06:39)
[2018-06-13] MEDS: INSULIN REGULAR 100 UNIT/ML SUBCUT SCH ×4 (08:24→21:39)
[2018-06-13] MEDS: POLYETHYLENE GLYCOL POWDER 17 GM PACK PO SCH (09:09)
[2018-06-13] MEDS: methIMAzole 10 MG TABLET PO SCH (09:09)
[2018-06-13] MEDS: CARVEDILOL 12.5 MG TABLET PO SCH ×2 (09:09→16:10)
[2018-06-13] MEDS: METHENAMINE HIPPURATE 1 GM TABLET PO SCH ×2 (09:09→21:39)
[2018-06-13] MEDS: DEXT 5% NACL 0.45% KCL 20 MEQ 20 MEQ/1,000 ML BAG IV SCH ×3 (09:09→21:45)
[2018-06-13] MEDS: AMIODARONE 200 MG TABLET PO SCH (09:09)
[2018-06-13] MEDS: PANTOPRAZOLE 40 MG TABLET PO SCH (09:09)
[2018-06-13] MEDS: HYDROXYCHLOROQUINE 200 MG TABLET PO SCH ×2 (09:09→21:39)
[2018-06-13 13:43] LABS: Folate 22.5 NG/ML (5.4-24.0)
[2018-06-13] MEDS: FUROSEMIDE 20 MG/2 ML VIAL IV PRN ×2 (16:10→21:39)
[2018-06-13] MEDS: ASPIRIN EC 81 MG TABLET PO SCH (21:39)
[2018-06-13] MEDS: MIRTAZAPINE 30 MG TABLET PO SCH (21:39)
[2018-06-13] MEDS: SIMVASTATIN 40 MG TABLET PO SCH (21:39)
[2018-06-13] MEDS: ENOXAPARIN 40 MG/0.4 ML SYRINGE SUBCUT SCH (21:40)
[2018-06-14] MEDS: DEXT 5% NACL 0.45% KCL 20 MEQ 20 MEQ/1,000 ML BAG IV SCH ×2 (03:46→13:05)
[2018-06-14 05:46] LABS: Eosinophils # 0.2 10*3/uL (0.0-0.87); Eosinophils % 3.7 % (0.00-10.9); Hematocrit 34.3 VOL% (35.7-47.0); Immature Granulocytes % 1.5 %; Immature Granulocytes Absolute 0.06 #; Lymphocytes # 1.2 10*3/uL (1.4-4.0); Lymphocytes % 29.2 % (21.3-54.2); Mean Corpuscular HGB Conc 32.4 GM/DL (32-36); Mean Corpuscular Hemoglobin 29 PG (27-34); Mean Corpuscular Volume 89.6 FL (87-102); Mean Platelet Volume 10.3 FL (9.6-12.0); Monocytes # 0.8 10*3/uL (0.11-0.8); Monocytes % 18.4 % (1.7-12.7); Neutrophils # 1.9 10*3/uL (1.4-7.4); Neutrophils % 46.2 % (38.7-73.9); Platelet Count 223 T/CUMM (130-400); Red Cell Distribution Width 14.7 % (9.3-17.3); White Blood Count 4.1 T/CUMM (4-12)
[2018-06-14 05:47] LABS: Red Blood Count 3.83 MC/CUMM (3.8-5.5)
[2018-06-14 05:48] LABS: Hemoglobin 11.1 GM/DL (12.0-16.0)
[2018-06-14 06:02] LABS: Albumin 2.3 G/DL (3.4-5.0); Bilirubin,Total 0.6 MG/DL (0.2-1.0); Calcium 7.9 MG/DL (8.5-10.1); Osmolality,Calculated 263.2 MOS/KG (273-304); Potassium 3.8 MMOL/L (3.5-5.1); Total Protein 5.1 G/DL (6.4-8.3)
[2018-06-14 06:03] LABS: Band Neutrophils 1 % (0-10); Eosinophils 4 % (0-10); Hypochromasia 1+; Lymphocytes 25 % (20-55); Ovalocytes Slight; Platelet Estimate Adequate; Segmented Neutrophils 55 % (50-85); Total Cells Counted 100
[2018-06-14 06:04] LABS: Microcytosis 1+
[2018-06-14] MEDS: INSULIN REGULAR 100 UNIT/ML SUBCUT SCH ×4 (07:30→22:24)
[2018-06-14] MEDS: PANTOPRAZOLE 40 MG TABLET PO SCH (09:27)
[2018-06-14] MEDS: methIMAzole 10 MG TABLET PO SCH (09:28)
[2018-06-14] MEDS: METHENAMINE HIPPURATE 1 GM TABLET PO SCH ×2 (09:28→21:25)
[2018-06-14] MEDS: HYDROXYCHLOROQUINE 200 MG TABLET PO SCH ×2 (09:28→21:25)
[2018-06-14] MEDS: AMIODARONE 200 MG TABLET PO SCH (09:28)
[2018-06-14] MEDS: CARVEDILOL 12.5 MG TABLET PO SCH ×2 (09:28→17:05)
[2018-06-14] MEDS: POLYETHYLENE GLYCOL POWDER 17 GM PACK PO SCH (10:10)
[2018-06-14] MEDS: ASPIRIN EC 81 MG TABLET PO SCH (21:24)
[2018-06-14] MEDS: MIRTAZAPINE 30 MG TABLET PO SCH (21:25)
[2018-06-14] MEDS: SIMVASTATIN 40 MG TABLET PO SCH (21:25)
[2018-06-15] MEDS: INSULIN REGULAR 100 UNIT/ML SUBCUT SCH ×4 (06:31→21:00)
[2018-06-15] MEDS ORDERED: LIDOCAINE 2% 5 ML VIAL ONE (10:00)
[2018-06-15] MEDS ORDERED: PROPOFOL 200 MG/20 ML VIAL IV ONE (10:00)
[2018-06-15] MEDS: CARVEDILOL 12.5 MG TABLET PO SCH ×2 (12:31→16:48)
[2018-06-15] MEDS: METHENAMINE HIPPURATE 1 GM TABLET PO SCH ×2 (16:12→21:01)
[2018-06-15] MEDS: HYDROXYCHLOROQUINE 200 MG TABLET PO SCH ×2 (16:12→21:01)
[2018-06-15] MEDS: POLYETHYLENE GLYCOL POWDER 17 GM PACK PO SCH (16:48)
[2018-06-15] MEDS: AMIODARONE 200 MG TABLET PO SCH (16:48)
[2018-06-15] MEDS: PANTOPRAZOLE 40 MG TABLET PO SCH (16:48)
[2018-06-15] MEDS: methIMAzole 10 MG TABLET PO SCH (16:48)
[2018-06-15] MEDS: SIMVASTATIN 40 MG TABLET PO SCH (21:01)
[2018-06-15] MEDS: ASPIRIN EC 81 MG TABLET PO SCH (21:01)
[2018-06-15] MEDS: MIRTAZAPINE 30 MG TABLET PO SCH (21:01)
[2018-06-16] MEDS: methIMAzole 10 MG TABLET PO SCH (09:20)
[2018-06-16] MEDS: AMIODARONE 200 MG TABLET PO SCH (09:20)
[2018-06-16] MEDS: HYDROXYCHLOROQUINE 200 MG TABLET PO SCH (09:20)
[2018-06-16] MEDS: METHENAMINE HIPPURATE 1 GM TABLET PO SCH (09:20)
[2018-06-16] MEDS: POLYETHYLENE GLYCOL POWDER 17 GM PACK PO SCH (09:20)
[2018-06-16] MEDS: CARVEDILOL 12.5 MG TABLET PO SCH (09:20)
[2018-06-16] MEDS: PANTOPRAZOLE 40 MG TABLET PO SCH (09:20)
[2018-06-16] MEDS: INSULIN REGULAR 100 UNIT/ML SUBCUT SCH (09:21)
[2018-06-16 11:37] VITALS: BP 120/53
== END 2018-06-16 11:42 | DRG 392 ==
LOC: SUATTDRO → N.5EOUT 17:09 → N.5E 17:30 → SUATTDRO 19:10 → N.5E 19:10
PROVIDERS: ADMIT Internal Medicine; ATTEND Hospitalist

== ENCOUNTER 2018-07-23 21:47 | Inpatient (IN) ==
[2018-07-24 00:37] LABS: Basophils % 0.7 % (0.0-0.8); Hemoglobin 11.1 GM/DL (12.0-16.0); Immature Granulocytes % 1.8 %; Lymphocytes # 1.4 10*3/uL (1.4-4.0); Lymphocytes % 23.7 % (21.3-54.2); Mean Corpuscular HGB Conc 31.7 GM/DL (32-36); Mean Corpuscular Volume 92.6 FL (87-102); Mean Platelet Volume 10.9 FL (9.6-12.0); Monocytes % 9.3 % (1.7-12.7); Neutrophils % 64.5 % (38.7-73.9); Platelet Count 107 T/CUMM (130-400); Red Blood Count 3.78 MC/CUMM (3.8-5.5); Red Cell Distribution Width 16.8 % (9.3-17.3); White Blood Count 5.7 T/CUMM (4-12)
[2018-07-24 00:51] LABS: Apearance,Urine Slightly Hazy (Clear); Bacteria,Urine Few /HPF (Few); Bilirubin,Urine Negative (Negative); Blood, Urine Negative (Negative); Glucose,Urine (UA) Negative (Negative); Hyaline Casts,Urine 8 /LPF (0-3); Ketones,Urine Negative (Negative); Mucus,Urine Occasional /LPF (Occasional); Nitrite,Urine Negative (Negative); Protein,Urine Negative; RBC,Urine 2 /HPF (0-4); Squamous Epithelial Cell,Urine Occasional /HPF (0-10); Urine Color Yellow (Yellow); Urine Specific Gravity 1.014 (1.001-1.035); Urine Urobilinogen < 2.0 EU/DL (0.2-1.0); WBC,Urine 20 /HPF (0-6)
[2018-07-24 00:51] LABS: Alanine Aminotransferase 17 U/L (13-56); Albumin 3.2 G/DL (3.4-5.0); Alkaline Phosphatase 73 U/L (45-117); Aspartate Amino Transferase 16 U/L (0-37); Bilirubin,Total < 0.39 MG/DL (0.2-1.0); Blood Urea Nitrogen 35 MG/DL (7-18); Calcium 8.9 MG/DL (8.5-10.1); Glucose 151 MG/DL (74-106); Osmolality,Calculated 291.3 MOS/KG (273-304); Total Protein 5.9 G/DL (6.4-8.3)
[2018-07-24] MEDS ORDERED: INSULIN REGULAR 100 UNIT/ML IV STA (01:03)
[2018-07-24] MEDS ORDERED: DEXTROSE 50% 25 GM/50 ML VIAL IV STA (01:03)
[2018-07-24 01:35] LABS: Hypochromasia 1+; Ovalocytes 1+; Platelet Estimate Normal
[2018-07-24] MEDS ORDERED: DEXTROSE 50% 25 GM/50 ML SYRINGE IV ONE (01:38)
[2018-07-24] MEDS ORDERED: GLUCAGON 1 MG VIAL IM PRN (02:48)
[2018-07-24] MEDS ORDERED: ACETAMINOPHEN 325 MG TABLET PO PRN (02:48)
[2018-07-24] MEDS ORDERED: DEXTROSE 50% 25 GM/50 ML SYRINGE IV PRN (02:48)
[2018-07-24] MEDS ORDERED: ONDANSETRON 4 MG/2 ML VIAL IV PRN (02:48)
[2018-07-24] MEDS: SODIUM CHLORIDE 0.9% 1,000 ML IV SCH ×2 (04:59→15:52)
[2018-07-24 05:47] LABS: Basophils % 0.4 % (0.0-0.8); Hematocrit 33.3 VOL% (35.7-47.0); Hemoglobin 10.8 GM/DL (12.0-16.0); Immature Granulocytes % 1.9 %; Lymphocytes # 1.5 10*3/uL (1.4-4.0); Lymphocytes % 27.9 % (21.3-54.2); Mean Corpuscular HGB Conc 32.4 GM/DL (32-36); Mean Corpuscular Volume 91.2 FL (87-102); Mean Platelet Volume 10.5 FL (9.6-12.0); Monocytes % 11.8 % (1.7-12.7); Platelet Count 187 T/CUMM (130-400); Red Blood Count 3.65 MC/CUMM (3.8-5.5); Red Cell Distribution Width 16.8 % (9.3-17.3); White Blood Count 5.3 T/CUMM (4-12)
[2018-07-24 06:16] LABS: Albumin 2.9 G/DL (3.4-5.0); Bilirubin,Total 0.4 MG/DL (0.2-1.0); Calcium 8.8 MG/DL (8.5-10.1); Osmolality,Calculated 288.1 MOS/KG (273-304); Thyroid Stimulating Hormone 1.1 uIU/ml (0.358-3.74); Total Protein 5.5 G/DL (6.4-8.3)
[2018-07-24] MEDS: INSULIN LISPRO 100 UNIT/ML SUBCUT SCH ×4 (09:28→21:33)
[2018-07-24] MEDS: ENOXAPARIN 30 MG/0.3 ML SYRINGE SUBCUT SCH (09:29)
[2018-07-24] MEDS: PANTOPRAZOLE 40 MG TABLET PO SCH (09:29)
[2018-07-25] MEDS: SODIUM CHLORIDE 0.9% 1,000 ML IV SCH ×3 (05:50→20:30)
[2018-07-25] MEDS: INSULIN LISPRO 100 UNIT/ML SUBCUT SCH ×4 (09:56→20:35)
[2018-07-25] MEDS: PANTOPRAZOLE 40 MG TABLET PO SCH (11:30)
[2018-07-25] MEDS: ENOXAPARIN 30 MG/0.3 ML SYRINGE SUBCUT SCH (11:30)
[2018-07-25] MEDS ORDERED: oxyCODONE/ACETAMINOPHEN 5-325 MG TABLET PO PRN (15:39)
[2018-07-25] MEDS ORDERED: ALBUTEROL 2.5 MG/3 ML NEB RESP TX PRN (15:39)
[2018-07-25] MEDS ORDERED: ERGOCALCIFEROL 50,000 UNIT CAPSULE PO SCH (15:39)
[2018-07-25] MEDS ORDERED: LOSARTAN 50 MG TABLET PO ONE (16:05)
[2018-07-25] MEDS: ASPIRIN EC 81 MG TABLET PO SCH (20:29)
[2018-07-25] MEDS: predniSONE 5 MG TABLET PO SCH (20:29)
[2018-07-25] MEDS: HYDROXYCHLOROQUINE 200 MG TABLET PO SCH (20:29)
[2018-07-25] MEDS: FAMOTIDINE 20 MG TABLET PO SCH (20:29)
[2018-07-25] MEDS: CARVEDILOL 12.5 MG TABLET PO SCH (20:29)
[2018-07-25] MEDS: SIMVASTATIN 20 MG TABLET PO SCH (20:29)
[2018-07-25] MEDS: MIRTAZAPINE 30 MG TABLET PO SCH (20:29)
[2018-07-25] MEDS: ASCORBIC ACID 500 MG TABLET PO SCH (20:29)
[2018-07-25] MEDS: METHENAMINE HIPPURATE 1 GM TABLET PO SCH (20:29)
[2018-07-25] MEDS ORDERED: metFORMIN 500 MG TABLET PO SCH (21:00)
[2018-07-26] MEDS: SODIUM CHLORIDE 0.9% 1,000 ML IV SCH ×4 (01:00→21:55)
[2018-07-26] MEDS: LEVOTHYROXINE 75 MCG TABLET PO SCH (06:10)
[2018-07-26] MEDS: HYDROXYCHLOROQUINE 200 MG TABLET PO SCH ×2 (08:24→20:29)
[2018-07-26] MEDS: LOSARTAN 50 MG TABLET PO SCH (08:24)
[2018-07-26] MEDS: predniSONE 5 MG TABLET PO SCH ×2 (08:24→20:29)
[2018-07-26] MEDS: AMIODARONE 200 MG TABLET PO SCH (08:24)
[2018-07-26] MEDS: ENOXAPARIN 30 MG/0.3 ML SYRINGE SUBCUT SCH (08:24)
[2018-07-26] MEDS: ASCORBIC ACID 500 MG TABLET PO SCH ×2 (08:24→20:29)
[2018-07-26] MEDS: PANTOPRAZOLE 40 MG TABLET PO SCH (08:24)
[2018-07-26] MEDS: FOLIC ACID 0.4 MG TABLET PO SCH (08:24)
[2018-07-26] MEDS: CARVEDILOL 12.5 MG TABLET PO SCH ×2 (08:24→20:29)
[2018-07-26] MEDS: METHENAMINE HIPPURATE 1 GM TABLET PO SCH ×2 (08:24→20:29)
[2018-07-26] MEDS: POLYETHYLENE GLYCOL POWDER 17 GM PACK PO SCH (08:37)
[2018-07-26] MEDS: INSULIN LISPRO 100 UNIT/ML SUBCUT SCH ×4 (08:37→20:33)
[2018-07-26] MEDS ORDERED: LOSARTAN 50 MG TABLET PO SCH (09:00)
[2018-07-26 09:38] LABS: Calcium 8.4 MG/DL (8.5-10.1)
[2018-07-26] MEDS: CLOTRIMAZOLE 10 MG TROCHE PO SCH ×3 (15:19→21:55)
[2018-07-26] MEDS ORDERED: LOSARTAN 50 MG TABLET PO ONE (16:05)
[2018-07-26] MEDS: SIMVASTATIN 20 MG TABLET PO SCH (20:29)
[2018-07-26] MEDS: ASPIRIN EC 81 MG TABLET PO SCH (20:29)
[2018-07-26] MEDS: MIRTAZAPINE 30 MG TABLET PO SCH (20:29)
[2018-07-26] MEDS: FAMOTIDINE 20 MG TABLET PO SCH (20:29)
[2018-07-27] MEDS: CLOTRIMAZOLE 10 MG TROCHE PO SCH ×2 (06:05→09:00)
[2018-07-27] MEDS: LEVOTHYROXINE 75 MCG TABLET PO SCH (06:05)
[2018-07-27] MEDS: SODIUM CHLORIDE 0.9% 1,000 ML IV SCH (07:52)
[2018-07-27 08:19] VITALS: BP 154/75
[2018-07-27] MEDS: INSULIN LISPRO 100 UNIT/ML SUBCUT SCH ×2 (08:54→12:41)
[2018-07-27] MEDS: ENOXAPARIN 30 MG/0.3 ML SYRINGE SUBCUT SCH (08:54)
[2018-07-27] MEDS: METHENAMINE HIPPURATE 1 GM TABLET PO SCH (08:55)
[2018-07-27] MEDS: LOSARTAN 50 MG TABLET PO SCH (08:55)
[2018-07-27] MEDS: ASCORBIC ACID 500 MG TABLET PO SCH (08:55)
[2018-07-27] MEDS: CARVEDILOL 12.5 MG TABLET PO SCH (08:55)
[2018-07-27] MEDS: AMIODARONE 200 MG TABLET PO SCH (08:55)
[2018-07-27] MEDS: HYDROXYCHLOROQUINE 200 MG TABLET PO SCH (08:55)
[2018-07-27] MEDS: predniSONE 5 MG TABLET PO SCH (08:55)
[2018-07-27] MEDS: FOLIC ACID 0.4 MG TABLET PO SCH (08:55)
[2018-07-27] MEDS: PANTOPRAZOLE 40 MG TABLET PO SCH (08:56)
[2018-07-27] MEDS: POLYETHYLENE GLYCOL POWDER 17 GM PACK PO SCH (08:58)
== END 2018-07-27 12:55 | disposition home health service (06) | DRG 683 ==
LOC: EDBD → EDUNIT# → N.ED 21:47 → SUATTDRO 07-24 02:48 → N.EDINP 07-24 02:48 → N.TELEN 07-24 03:27
PROVIDERS: ADMIT Internal Medicine Infectious Disease; ATTEND Internal Medicine

== ENCOUNTER 2018-11-12 15:50 | Inpatient (IN) ==
[2018-11-12] MEDS ORDERED: fentaNYL 100 MCG/2 ML VIAL IV STA (17:11)
[2018-11-12] MEDS ORDERED: ACETAMINOPHEN 325 MG TABLET PO PRN (17:51)
[2018-11-12] MEDS ORDERED: MAGNESIUM SULF RIDER 2 GM in PREMIX 1 EACH IV PRN (17:51)
[2018-11-12] MEDS ORDERED: POTASSIUM CHLORIDE RIDER 10 MEQ in PREMIX 1 EACH IV PRN (17:51)
[2018-11-12] MEDS ORDERED: MAGNESIUM SULF RIDER 4 GM in PREMIX 1 EACH IV PRN (17:51)
[2018-11-12 18:37] LABS: Basophils % 0.4 % (0.0-0.8); Eosinophils % 0.2 % (0.00-10.9); Hematocrit 33.2 VOL% (35.7-47.0); Hemoglobin 10.7 GM/DL (12.0-16.0); Immature Granulocytes % 1.6 %; Immature Granulocytes Absolute 0.16 #; Lymphocytes % 10.5 % (21.3-54.2); Mean Corpuscular HGB Conc 32.2 GM/DL (32-36); Mean Corpuscular Volume 99.1 FL (87-102); Mean Platelet Volume 10.3 FL (9.6-12.0); Monocytes % 5.5 % (1.7-12.7); Neutrophils % 81.8 % (38.7-73.9); Platelet Count 284 T/CUMM (130-400); Red Blood Count 3.35 MC/CUMM (3.8-5.5); Red Cell Distribution Width 13.2 % (9.3-17.3); White Blood Count 9.8 T/CUMM (4-12)
[2018-11-12 18:49] LABS: Alanine Aminotransferase 17 U/L (13-56); Alkaline Phosphatase 99 U/L (45-117); Aspartate Amino Transferase 13 U/L (0-37); Bilirubin,Total < 0.39 MG/DL (0.2-1.0); Blood Urea Nitrogen 47 MG/DL (7-18); Calcium 9.3 MG/DL (8.5-10.1); Glucose 158 MG/DL (74-106); Osmolality,Calculated 297.1 MOS/KG (273-304); Total Protein 7.2 G/DL (6.4-8.3)
[2018-11-12 19:10] LABS: Apearance,Urine CLOUDY (Clear); Bacteria,Urine Many /HPF (Few); Bilirubin,Urine Negative (Negative); Blood, Urine Negative (Negative); Glucose,Urine (UA) Negative (Negative); Hyaline Casts,Urine 3 /LPF (0-3); Ketones,Urine Negative (Negative); Mucus,Urine Occasional /LPF (Occasional); Nitrite,Urine Negative (Negative); Protein,Urine Negative; Squamous Epithelial Cell,Urine Occasional /HPF (0-10); Urine Color Yellow (Yellow); Urine Specific Gravity 1.008 (1.001-1.035); Urine Urobilinogen < 2.0 EU/DL (0.2-1.0); WBC,Urine 19 /HPF (0-6)
[2018-11-12] MEDS: CARVEDILOL 12.5 MG TABLET PO SCH (21:41)
[2018-11-12] MEDS: ASCORBIC ACID 500 MG TABLET PO SCH (21:41)
[2018-11-12] MEDS: SIMVASTATIN 40 MG TABLET PO SCH (21:41)
[2018-11-12] MEDS: METHENAMINE HIPPURATE 1 GM TABLET PO SCH (21:41)
[2018-11-12] MEDS: predniSONE 5 MG TABLET PO SCH (21:41)
[2018-11-12] MEDS: MIRTAZAPINE 30 MG TABLET PO SCH (21:42)
[2018-11-12] MEDS: HYDROXYCHLOROQUINE 200 MG TABLET PO SCH (21:42)
[2018-11-12] MEDS: fentaNYL 100 MCG/2 ML VIAL IV PRN (21:43)
[2018-11-13] MEDS: fentaNYL 100 MCG/2 ML VIAL IV PRN ×2 (02:39→06:03)
[2018-11-13 05:08] LABS: Basophils % 0.3 % (0.0-0.8); Eosinophils % 0.3 % (0.00-10.9); Hematocrit 31.2 VOL% (35.7-47.0); Hemoglobin 9.7 GM/DL (12.0-16.0); Immature Granulocytes % 1.2 %; Immature Granulocytes Absolute 0.11 #; Lymphocytes # 1.1 10*3/uL (1.4-4.0); Lymphocytes % 12.8 % (21.3-54.2); Mean Corpuscular HGB Conc 31.1 GM/DL (32-36); Mean Corpuscular Volume 99.7 FL (87-102); Mean Platelet Volume 10.2 FL (9.6-12.0); Monocytes % 7.3 % (1.7-12.7); Neutrophils % 78.1 % (38.7-73.9); Platelet Count 258 T/CUMM (130-400); Red Blood Count 3.13 MC/CUMM (3.8-5.5); Red Cell Distribution Width 13.2 % (9.3-17.3); White Blood Count 8.9 T/CUMM (4-12)
[2018-11-13 05:30] LABS: Albumin 2.6 G/DL (3.4-5.0); Bilirubin,Total 0.6 MG/DL (0.2-1.0); Calcium 8.9 MG/DL (8.5-10.1); Risk Ratio 2.4; Thyroid Stimulating Hormone 0.243 uIU/ml (0.358-3.74); Total Protein 6.1 G/DL (6.4-8.3); VLDL CHOLESTEROL 16.2 MG/DL
[2018-11-13] MEDS ORDERED: VANCOMYCIN 1,000 MG VIAL ONE (07:58)
[2018-11-13] MEDS ORDERED: CLINDAMYCIN INJ 50 ML IV ONE (07:58)
[2018-11-13] MEDS ORDERED: BACITRACIN 50,000 UNIT VIAL ONE (08:21)
[2018-11-13] MEDS: PANTOPRAZOLE 40 MG TABLET PO SCH (09:00)
[2018-11-13] MEDS: HYDROXYCHLOROQUINE 200 MG TABLET PO SCH ×2 (09:00→21:02)
[2018-11-13] MEDS: CARVEDILOL 12.5 MG TABLET PO SCH ×2 (09:00→21:02)
[2018-11-13] MEDS: METHENAMINE HIPPURATE 1 GM TABLET PO SCH ×2 (09:00→21:02)
[2018-11-13] MEDS: LOSARTAN 50 MG TABLET PO SCH (09:00)
[2018-11-13] MEDS: ASCORBIC ACID 500 MG TABLET PO SCH ×2 (09:00→21:02)
[2018-11-13] MEDS: predniSONE 5 MG TABLET PO SCH ×2 (09:00→21:02)
[2018-11-13] MEDS ORDERED: CYANOCOBALAMIN 10000 MCG PO SCH (09:00)
[2018-11-13] MEDS: LEVOTHYROXINE 75 MCG TABLET PO SCH (09:00)
[2018-11-13] MEDS ORDERED: BIOTIN 1000 MCG PO SCH (09:00)
[2018-11-13] MEDS: FOLIC ACID 0.4 MG TABLET PO SCH (09:00)
[2018-11-13] MEDS: AMIODARONE 200 MG TABLET PO SCH (09:00)
[2018-11-13] MEDS ORDERED: ALBUTEROL/IPRATROPIUM 3 ML NEB RESP TX ONE (09:39)
[2018-11-13] MEDS ORDERED: MEPERIDINE 25 MG/1 ML VIAL IV PRN (09:44)
[2018-11-13] MEDS ORDERED: ONDANSETRON 4 MG/2 ML VIAL IV PRN (09:44)
[2018-11-13] MEDS: ENOXAPARIN 30 MG/0.3 ML SYRINGE SUBCUT SCH (10:52)
[2018-11-13] MEDS: CLINDAMYCIN INJ 600 MG in PREMIX 1 EACH IV SCH ×2 (10:52→17:21)
[2018-11-13] MEDS ORDERED: fentaNYL 100 MCG/2 ML VIAL ONE ×2 (14:16→14:30)
[2018-11-13] MEDS ORDERED: PROPOFOL 200 MG/20 ML VIAL IV ONE (14:16)
[2018-11-13] MEDS ORDERED: SEVOFLURANE 1 UNIT/15 MINUTE INH ONE (14:16)
[2018-11-13] MEDS ORDERED: SODIUM CHLORIDE 0.9% 250 ML IV ONE (14:17)
[2018-11-13] MEDS ORDERED: ePHEDrine 50 MG/ML AMP ONE (14:17)
[2018-11-13] MEDS ORDERED: ALBUTEROL INHALER 8 GM INH ONE (14:17)
[2018-11-13] MEDS ORDERED: PHENYLEPHRINE 1 MG/10 ML SYRINGE IV ONE (14:17)
[2018-11-13] MEDS ORDERED: ONDANSETRON 4 MG/2 ML VIAL ONE (14:17)
[2018-11-13] MEDS ORDERED: ROCURONIUM 100 MG/10 ML VIAL IV ONE (14:17)
[2018-11-13] MEDS: MIRTAZAPINE 30 MG TABLET PO SCH (21:02)
[2018-11-13] MEDS: SIMVASTATIN 40 MG TABLET PO SCH (21:02)
[2018-11-14] MEDS: CLINDAMYCIN INJ 600 MG in PREMIX 1 EACH IV SCH ×3 (01:01→16:39)
[2018-11-14 05:34] LABS: Basophils % 0.2 % (0.0-0.8); Eosinophils # 0.2 10*3/uL (0.0-0.87); Eosinophils % 1.5 % (0.00-10.9); Hematocrit 30.2 VOL% (35.7-47.0); Hemoglobin 9.5 GM/DL (12.0-16.0); Immature Granulocytes % 1.1 %; Immature Granulocytes Absolute 0.15 #; Lymphocytes % 7.7 % (21.3-54.2); Mean Corpuscular HGB Conc 31.5 GM/DL (32-36); Mean Corpuscular Volume 100.3 FL (87-102); Monocytes % 9.4 % (1.7-12.7); Neutrophils % 80.1 % (38.7-73.9); Platelet Count 219 T/CUMM (130-400); Red Blood Count 3.01 MC/CUMM (3.8-5.5); Red Cell Distribution Width 13.2 % (9.3-17.3); White Blood Count 13.1 T/CUMM (4-12)
[2018-11-14 05:46] LABS: Albumin 2.4 G/DL (3.4-5.0); Bilirubin,Total 0.5 MG/DL (0.2-1.0); Calcium 8.3 MG/DL (8.5-10.1); Osmolality,Calculated 285.5 MOS/KG (273-304); Total Protein 5.8 G/DL (6.4-8.3)
[2018-11-14] MEDS: METHENAMINE HIPPURATE 1 GM TABLET PO SCH ×2 (08:52→21:11)
[2018-11-14] MEDS: LOSARTAN 50 MG TABLET PO SCH (08:52)
[2018-11-14] MEDS: PANTOPRAZOLE 40 MG TABLET PO SCH (08:52)
[2018-11-14] MEDS: predniSONE 5 MG TABLET PO SCH ×2 (08:52→21:11)
[2018-11-14] MEDS: CARVEDILOL 12.5 MG TABLET PO SCH ×2 (08:52→21:11)
[2018-11-14] MEDS: FOLIC ACID 0.4 MG TABLET PO SCH (08:52)
[2018-11-14] MEDS: ASCORBIC ACID 500 MG TABLET PO SCH ×2 (08:52→21:11)
[2018-11-14] MEDS: AMIODARONE 200 MG TABLET PO SCH (08:52)
[2018-11-14] MEDS: HYDROXYCHLOROQUINE 200 MG TABLET PO SCH ×2 (08:52→21:11)
[2018-11-14] MEDS: ENOXAPARIN 30 MG/0.3 ML SYRINGE SUBCUT SCH (09:49)
[2018-11-14] MEDS ORDERED: TUBERCULIN SKIN TEST 0.1 ML SYRINGE INTRADERM ONE (10:30)
[2018-11-14] MEDS: POLYETHYLENE GLYCOL POWDER 17 GM PACK PO SCH (10:53)
[2018-11-14] MEDS: cefTRIAXone 1,000 MG in SYRINGE 1 EACH IV SCH (10:55)
[2018-11-14] MEDS ORDERED: FUROSEMIDE 20 MG TABLET PO SCH (17:57)
[2018-11-14] MEDS: SIMVASTATIN 40 MG TABLET PO SCH (21:11)
[2018-11-14] MEDS: MIRTAZAPINE 30 MG TABLET PO SCH (21:11)
[2018-11-15] MEDS: CLINDAMYCIN INJ 600 MG in PREMIX 1 EACH IV SCH ×2 (00:57→09:17)
[2018-11-15 05:44] LABS: Basophils % 0.2 % (0.0-0.8); Eosinophils # 0.1 10*3/uL (0.0-0.87); Eosinophils % 0.9 % (0.00-10.9); Hematocrit 29.7 VOL% (35.7-47.0); Hemoglobin 9.2 GM/DL (12.0-16.0); Immature Granulocytes % 1.4 %; Immature Granulocytes Absolute 0.16 #; Lymphocytes # 1.1 10*3/uL (1.4-4.0); Lymphocytes % 9.6 % (21.3-54.2); Mean Platelet Volume 10.6 FL (9.6-12.0); Monocytes % 9.1 % (1.7-12.7); Neutrophils % 78.8 % (38.7-73.9); Platelet Count 206 T/CUMM (130-400); Red Blood Count 2.97 MC/CUMM (3.8-5.5); Red Cell Distribution Width 13.2 % (9.3-17.3); White Blood Count 11.7 T/CUMM (4-12)
[2018-11-15 06:24] LABS: Calcium 8.8 MG/DL (8.5-10.1); Osmolality,Calculated 284.8 MOS/KG (273-304)
[2018-11-15 06:25] LABS: Albumin 2.2 G/DL (3.4-5.0); Bilirubin,Total 0.6 MG/DL (0.2-1.0); Calcium 8.9 MG/DL (8.5-10.1); Total Protein 5.7 G/DL (6.4-8.3)
[2018-11-15] MEDS: POLYETHYLENE GLYCOL POWDER 17 GM PACK PO SCH (09:09)
[2018-11-15] MEDS: ENOXAPARIN 30 MG/0.3 ML SYRINGE SUBCUT SCH (09:09)
[2018-11-15] MEDS: cefTRIAXone 1,000 MG in SYRINGE 1 EACH IV SCH (09:09)
[2018-11-15] MEDS: METHENAMINE HIPPURATE 1 GM TABLET PO SCH (09:10)
[2018-11-15] MEDS: CARVEDILOL 12.5 MG TABLET PO SCH (09:10)
[2018-11-15] MEDS: predniSONE 5 MG TABLET PO SCH (09:10)
[2018-11-15] MEDS: FOLIC ACID 0.4 MG TABLET PO SCH (09:10)
[2018-11-15] MEDS: LEVOTHYROXINE 75 MCG TABLET PO SCH (09:10)
[2018-11-15] MEDS: AMIODARONE 200 MG TABLET PO SCH (09:10)
[2018-11-15] MEDS: ASCORBIC ACID 500 MG TABLET PO SCH (09:10)
[2018-11-15] MEDS: HYDROXYCHLOROQUINE 200 MG TABLET PO SCH (09:10)
[2018-11-15] MEDS: PANTOPRAZOLE 40 MG TABLET PO SCH (09:10)
[2018-11-15] MEDS: LOSARTAN 50 MG TABLET PO SCH (09:10)
[2018-11-15 12:17] VITALS: BP 91/38
== END 2018-11-15 14:24 | disposition swing bed (61) | DRG 470 ==
LOC: EDBD → EDUNIT# → N.ED 15:50 → N.EDINP 17:52 → N.3E 18:29
PROVIDERS: ADMIT Family Medicine; ATTEND Family Medicine

== ENCOUNTER 2019-01-02 01:27 | Inpatient (IN) ==
[2019-01-02 02:43] LABS: Mean Corpuscular Volume 103.1 FL (87-102)
[2019-01-02 02:59] LABS: Basophils # 0.1 10*3/uL (0.0-0.2); Basophils % 0.7 % (0.0-0.8); Eosinophils # 0.1 10*3/uL (0.0-0.87); Eosinophils % 0.7 % (0.00-10.9); Hematocrit 33.5 VOL% (35.7-47.0); Hemoglobin 10.4 GM/DL (12.0-16.0); Immature Granulocytes Absolute 0.61 #; Lymphocytes # 1.9 10*3/uL (1.4-4.0); Mean Platelet Volume 10.4 FL (9.6-12.0); Monocytes % 9.3 % (1.7-12.7); Neutrophils % 64.3 % (38.7-73.9); Platelet Count 154 T/CUMM (130-400); Red Blood Count 3.25 MC/CUMM (3.8-5.5); Red Cell Distribution Width 17.1 % (9.3-17.3); White Blood Count 10.2 T/CUMM (4-12)
[2019-01-02 03:02] LABS: Alanine Aminotransferase 19 U/L (13-56); Albumin 2.9 G/DL (3.4-5.0); Alkaline Phosphatase 56 U/L (45-117); Aspartate Amino Transferase 12 U/L (0-37); Bilirubin,Total < 0.39 MG/DL (0.2-1.0); Blood Urea Nitrogen 28 MG/DL (7-18); Calcium 8.4 MG/DL (8.5-10.1); Estimated Glom Filtration Rate 35 ML/MIN; Glucose 133 MG/DL (74-106); Osmolality,Calculated 299.4 MOS/KG (273-304); Total Protein 5.8 G/DL (6.4-8.3)
[2019-01-02 03:10] LABS: Anisocytosis 1+; Lymphocytes 20 % (20-55); Platelet Estimate Adequate; Segmented Neutrophils 69 % (50-85); Total Cells Counted 100
[2019-01-02] MEDS ORDERED: FUROSEMIDE 40 MG/4 ML VIAL IV STA (03:18)
[2019-01-02] MEDS ORDERED: ACETAMINOPHEN 325 MG TABLET PO PRN (03:52)
[2019-01-02] MEDS ORDERED: ONDANSETRON 4 MG/2 ML VIAL IV PRN (03:52)
[2019-01-02 06:17] LABS: Basophils # 0.1 10*3/uL (0.0-0.2); Basophils % 0.9 % (0.0-0.8); Hematocrit 33.2 VOL% (35.7-47.0); Hemoglobin 10.4 GM/DL (12.0-16.0); Immature Granulocytes % 7.7 %; Lymphocytes # 1.9 10*3/uL (1.4-4.0); Lymphocytes % 21.1 % (21.3-54.2); Mean Corpuscular HGB Conc 31.3 GM/DL (32-36); Mean Corpuscular Volume 103.8 FL (87-102); Mean Platelet Volume 10.3 FL (9.6-12.0); Neutrophils % 60.3 % (38.7-73.9); Platelet Count 176 T/CUMM (130-400); Red Cell Distribution Width 17.1 % (9.3-17.3); White Blood Count 9.1 T/CUMM (4-12)
[2019-01-02] MEDS: LEVOTHYROXINE 75 MCG TABLET PO SCH (06:34)
[2019-01-02 06:36] LABS: Calcium 8.9 MG/DL (8.5-10.1); Osmolality,Calculated 294.6 MOS/KG (273-304)
[2019-01-02 06:38] LABS: Eosinophils 2 % (0-10); Lymphocytes 21 % (20-55); Platelet Estimate Adequate; Segmented Neutrophils 67 % (50-85); Total Cells Counted 100
[2019-01-02 06:39] LABS: Hypochromasia 1+; Ovalocytes Slight
[2019-01-02] MEDS: LOSARTAN 50 MG TABLET PO SCH (08:37)
[2019-01-02] MEDS: carvediloL 12.5 MG TABLET PO SCH ×2 (08:37→17:06)
[2019-01-02] MEDS: HYDROXYCHLOROQUINE 200 MG TABLET PO SCH ×2 (08:37→20:36)
[2019-01-02] MEDS: sitaGLIPtin 25 MG TABLET PO SCH (08:37)
[2019-01-02] MEDS: AMIODARONE 200 MG TABLET PO SCH (08:37)
[2019-01-02] MEDS: ENOXAPARIN 30 MG/0.3 ML SYRINGE SUBCUT SCH (08:38)
[2019-01-02] MEDS: FUROSEMIDE 40 MG/4 ML VIAL IV SCH ×2 (08:38→17:06)
[2019-01-02 09:38] LABS: Apearance,Urine CLEAR (Clear); Bacteria,Urine Occasional /HPF (Few); Bilirubin,Urine Negative (Negative); Blood, Urine Negative (Negative); Glucose,Urine (UA) Negative (Negative); Hyaline Casts,Urine 1 /LPF (0-3); Ketones,Urine Negative (Negative); Mucus,Urine Occasional /LPF (Occasional); Nitrite,Urine Negative (Negative); Protein,Urine Negative; RBC,Urine 1 /HPF (0-4); Squamous Epithelial Cell,Urine Occasional /HPF (0-10); Urine Color Straw (Yellow); Urine Specific Gravity 1.005 (1.001-1.035); Urine Urobilinogen < 2.0 EU/DL (0.2-1.0); WBC,Urine 3 /HPF (0-6)
[2019-01-02] MEDS: ALBUTEROL/IPRATROPIUM 3 ML NEB RESP TX SCH ×3 (10:54→20:30)
[2019-01-02 13:54] LABS: Folate > 24.0 NG/ML (5.4-24.0); Vitamin B12 > 2000 PG/ML (211-911)
[2019-01-02] MEDS: methylPREDNISolone SOD SUC 40 MG/1 ML VIAL IV SCH (20:36)
[2019-01-02] MEDS: SIMVASTATIN 40 MG TABLET PO SCH (20:36)
[2019-01-02] MEDS: ASPIRIN EC 81 MG TABLET PO SCH (20:36)
[2019-01-03] MEDS: ALBUTEROL/IPRATROPIUM 3 ML NEB RESP TX SCH ×7 (00:16→23:43)
[2019-01-03] MEDS: methylPREDNISolone SOD SUC 40 MG/1 ML VIAL IV SCH ×3 (03:27→20:34)
[2019-01-03 05:34] LABS: Risk Ratio 2.72; VLDL CHOLESTEROL 8.4 MG/DL
[2019-01-03] MEDS: LEVOTHYROXINE 75 MCG TABLET PO SCH (06:01)
[2019-01-03] MEDS: sitaGLIPtin 25 MG TABLET PO SCH (08:41)
[2019-01-03] MEDS: carvediloL 12.5 MG TABLET PO SCH ×2 (08:41→16:43)
[2019-01-03] MEDS: HYDROXYCHLOROQUINE 200 MG TABLET PO SCH ×2 (08:41→20:34)
[2019-01-03] MEDS: AMIODARONE 200 MG TABLET PO SCH (08:41)
[2019-01-03] MEDS: LOSARTAN 50 MG TABLET PO SCH (08:41)
[2019-01-03] MEDS: ENOXAPARIN 30 MG/0.3 ML SYRINGE SUBCUT SCH (08:42)
[2019-01-03] MEDS: FUROSEMIDE 40 MG/4 ML VIAL IV SCH ×2 (08:42→16:43)
[2019-01-03] MEDS: SIMVASTATIN 40 MG TABLET PO SCH (20:34)
[2019-01-03] MEDS: ASPIRIN EC 81 MG TABLET PO SCH (20:34)
[2019-01-04] MEDS: ALBUTEROL/IPRATROPIUM 3 ML NEB RESP TX SCH ×5 (03:47→20:07)
[2019-01-04 05:23] LABS: Basophils % 0.1 % (0.0-0.8); Hematocrit 29.3 VOL% (35.7-47.0); Hemoglobin 9.6 GM/DL (12.0-16.0); Immature Granulocytes % 1.6 %; Immature Granulocytes Absolute 0.18 #; Lymphocytes # 0.6 10*3/uL (1.4-4.0); Lymphocytes % 5.8 % (21.3-54.2); Mean Corpuscular HGB Conc 32.8 GM/DL (32-36); Mean Platelet Volume 10.9 FL (9.6-12.0); Monocytes % 4.5 % (1.7-12.7); Platelet Count 167 T/CUMM (130-400); Red Blood Count 2.96 MC/CUMM (3.8-5.5); Red Cell Distribution Width 15.9 % (9.3-17.3)
[2019-01-04] MEDS: LEVOTHYROXINE 75 MCG TABLET PO SCH (05:30)
[2019-01-04] MEDS: methylPREDNISolone SOD SUC 40 MG/1 ML VIAL IV SCH ×3 (05:30→18:07)
[2019-01-04 05:53] LABS: Calcium 8.5 MG/DL (8.5-10.1); Osmolality,Calculated 310.7 MOS/KG (273-304)
[2019-01-04] MEDS ORDERED: GLUCAGON 1 MG VIAL IM PRN (07:38)
[2019-01-04] MEDS ORDERED: DEXTROSE 50% 25 GM/50 ML VIAL IV PRN (07:38)
[2019-01-04] MEDS: AMIODARONE 200 MG TABLET PO SCH (08:25)
[2019-01-04] MEDS: INSULIN LISPRO 100 UNIT/ML SUBCUT SCH ×4 (08:26→21:12)
[2019-01-04] MEDS: LOSARTAN 50 MG TABLET PO SCH (08:26)
[2019-01-04] MEDS: ENOXAPARIN 30 MG/0.3 ML SYRINGE SUBCUT SCH (08:26)
[2019-01-04] MEDS: HYDROXYCHLOROQUINE 200 MG TABLET PO SCH ×2 (08:26→20:15)
[2019-01-04] MEDS: sitaGLIPtin 25 MG TABLET PO SCH (08:26)
[2019-01-04] MEDS: carvediloL 12.5 MG TABLET PO SCH ×2 (08:26→16:26)
[2019-01-04] MEDS: FUROSEMIDE 40 MG/4 ML VIAL IV SCH ×2 (08:31→16:28)
[2019-01-04 10:12] LABS: Free T4 (Free Thyroxine) 1.58 NG/DL (0.76-1.46)
[2019-01-04] MEDS: ASPIRIN EC 81 MG TABLET PO SCH (20:15)
[2019-01-04] MEDS: SIMVASTATIN 40 MG TABLET PO SCH (20:15)
[2019-01-04] MEDS ORDERED: INSULIN GLARGINE 100 UNIT/ML SUBCUT SCH ×2 (21:00)
[2019-01-05] MEDS: ALBUTEROL/IPRATROPIUM 3 ML NEB RESP TX SCH ×3 (00:30→07:31)
[2019-01-05] MEDS: methylPREDNISolone SOD SUC 40 MG/1 ML VIAL IV SCH (05:39)
[2019-01-05] MEDS: LEVOTHYROXINE 75 MCG TABLET PO SCH (05:39)
[2019-01-05 08:04] VITALS: BP 161/56
[2019-01-05] MEDS: carvediloL 12.5 MG TABLET PO SCH (08:27)
[2019-01-05] MEDS: sitaGLIPtin 25 MG TABLET PO SCH (08:27)
[2019-01-05] MEDS: LOSARTAN 50 MG TABLET PO SCH (08:27)
[2019-01-05] MEDS: AMIODARONE 200 MG TABLET PO SCH (08:27)
[2019-01-05] MEDS: HYDROXYCHLOROQUINE 200 MG TABLET PO SCH (08:27)
[2019-01-05] MEDS: ENOXAPARIN 30 MG/0.3 ML SYRINGE SUBCUT SCH (08:28)
[2019-01-05] MEDS: INSULIN LISPRO 100 UNIT/ML SUBCUT SCH (08:28)
== END 2019-01-05 11:20 | DRG 190 ==
LOC: N.ED 01:27 → N.EDINP 03:52 → N.2E 04:50
PROVIDERS: ADMIT Internal Medicine; ATTEND Internal Medicine

== ENCOUNTER 2019-01-12 07:53 | Inpatient (IN) ==
[2019-01-12] MEDS ORDERED: DEXTROSE 50% 25 GM/50 ML SYRINGE IV ONE (07:54)
[2019-01-12] MEDS ORDERED: DEXTROSE 50% 25 GM/50 ML VIAL IV STA (08:05)
[2019-01-12] MEDS: DEXTROSE 5% NACL 0.45% 1,000 ML IV SCH (08:30)
[2019-01-12 08:31] LABS: Basophils # 0.2 10*3/uL (0.0-0.2); Basophils % 0.6 % (0.0-0.8); Hematocrit 34.9 VOL% (35.7-47.0); Hemoglobin 11.3 GM/DL (12.0-16.0); Immature Granulocytes % 4.2 %; Immature Granulocytes Absolute 1.21 #; Lymphocytes # 1.5 10*3/uL (1.4-4.0); Lymphocytes % 5.3 % (21.3-54.2); Mean Corpuscular HGB Conc 32.4 GM/DL (32-36); Mean Corpuscular Volume 98.3 FL (87-102); Mean Platelet Volume 11.4 FL (9.6-12.0); Neutrophils % 84.9 % (38.7-73.9); Platelet Count 199 T/CUMM (130-400); Red Blood Count 3.55 MC/CUMM (3.8-5.5); Red Cell Distribution Width 15.9 % (9.3-17.3); White Blood Count 28.7 T/CUMM (4-12)
[2019-01-12 08:46] LABS: Band Neutrophils 16 % (0-10); Lymphocytes 9 % (20-55); Platelet Estimate Normal; Segmented Neutrophils 68 % (50-85); Total Cells Counted 100
[2019-01-12 08:47] LABS: Anisocytosis Slight
[2019-01-12 08:51] LABS: Albumin 2.5 G/DL (3.4-5.0); Bilirubin,Total 0.8 MG/DL (0.2-1.0); Calcium 8.5 MG/DL (8.5-10.1); Osmolality,Calculated 292.7 MOS/KG (273-304); Total Protein 5.6 G/DL (6.4-8.3)
[2019-01-12] MEDS ORDERED: FUROSEMIDE 40 MG/4 ML VIAL IV STA (09:38)
[2019-01-12] MEDS ORDERED: guaiFENesin/DM ER 600-30 MG TABLET PO PRN (10:18)
[2019-01-12] MEDS ORDERED: MAGNESIUM SULF RIDER 2 GM in PREMIX 1 EACH IV PRN (10:18)
[2019-01-12] MEDS ORDERED: ONDANSETRON 4 MG/2 ML VIAL IV PRN (10:18)
[2019-01-12] MEDS ORDERED: POTASSIUM CHLORIDE RIDER 10 MEQ in PREMIX 1 EACH IV PRN (10:18)
[2019-01-12] MEDS ORDERED: diphenhydrAMINE CAP 25 MG CAPSULE PO PRN (10:18)
[2019-01-12] MEDS ORDERED: ACETAMINOPHEN 325 MG TABLET PO PRN (10:18)
[2019-01-12] MEDS ORDERED: ZALEPLON 5 MG CAPSULE PO PRN (10:18)
[2019-01-12] MEDS ORDERED: MAGNESIUM SULF RIDER 4 GM in PREMIX 1 EACH IV PRN (10:18)
[2019-01-12] MEDS ORDERED: DEXTROSE 50% 25 GM/50 ML VIAL IV PRN (10:22)
[2019-01-12] MEDS ORDERED: GLUCAGON 1 MG VIAL IM PRN (10:22)
[2019-01-12] MEDS ORDERED: AZITHROMYCIN 250 MG TABLET PO SCH (10:30)
[2019-01-12 10:38] LABS: Apearance,Urine CLEAR (Clear); Bacteria,Urine Many /HPF (Few); Bilirubin,Urine Negative (Negative); Blood, Urine Small mg/dL (Negative); Glucose,Urine (UA) Negative (Negative); Ketones,Urine Negative (Negative); Mucus,Urine Occasional /LPF (Occasional); Nitrite,Urine Negative (Negative); Protein,Urine 30 MG/DL; RBC,Urine 1 /HPF (0-4); Urine Color Yellow (Yellow); Urine Specific Gravity 1.016 (1.001-1.035); Urine Urobilinogen < 2.0 EU/DL (0.2-1.0); WBC,Urine 12 /HPF (0-6)
[2019-01-12 11:30] LABS: ABG HCO3 26.2 MMOL/L (20-26); ABG Oxygen Saturation 98.6 % (95-100); ABG PCO2 33.3 MM HG (35-48); ABG PH 7.485 (7.35-7.45); ABG TCO2 22.8 MMOL/L (23-27)
[2019-01-12] MEDS ORDERED: POTASSIUM CHLORIDE 20 MEQ TABLET PO ONE (11:43)
[2019-01-12] MEDS: LEVOFLOXACIN INJ 500 MG in PREMIX 1 EACH IV SCH (12:03)
[2019-01-12] MEDS: SPIRONOLACTONE 50 MG TABLET PO SCH (12:07)
[2019-01-12] MEDS: ALBUTEROL/IPRATROPIUM 3 ML NEB RESP TX SCH ×3 (14:10→22:47)
[2019-01-12] MEDS ORDERED: FUROSEMIDE 40 MG/4 ML VIAL IV SCH (16:00)
[2019-01-12] MEDS: ENOXAPARIN 30 MG/0.3 ML SYRINGE SUBCUT SCH (16:41)
[2019-01-12] MEDS: MIRTAZAPINE 30 MG TABLET PO SCH (22:40)
[2019-01-12] MEDS: SIMVASTATIN 40 MG TABLET PO SCH (22:40)
[2019-01-12] MEDS: ASPIRIN EC 81 MG TABLET PO SCH (22:40)
[2019-01-12] MEDS: DOCUSATE SODIUM 100 MG CAPSULE PO SCH (22:40)
[2019-01-12] MEDS: carvediloL 12.5 MG TABLET PO SCH (22:40)
[2019-01-12] MEDS: ASCORBIC ACID 500 MG TABLET PO SCH (22:40)
[2019-01-12] MEDS: HYDROXYCHLOROQUINE 200 MG TABLET PO SCH (22:40)
[2019-01-12] MEDS: METHENAMINE HIPPURATE 1 GM TABLET PO SCH (22:40)
[2019-01-13] MEDS: ALBUTEROL/IPRATROPIUM 3 ML NEB RESP TX SCH ×5 (04:00→20:42)
[2019-01-13 04:41] LABS: Basophils % 0.2 % (0.0-0.8); Hematocrit 26.6 VOL% (35.7-47.0); Hemoglobin 8.4 GM/DL (12.0-16.0); Immature Granulocytes % 1.8 %; Immature Granulocytes Absolute 0.24 #; Lymphocytes # 1.1 10*3/uL (1.4-4.0); Lymphocytes % 8.4 % (21.3-54.2); Mean Corpuscular HGB Conc 31.6 GM/DL (32-36); Mean Corpuscular Volume 99.6 FL (87-102); Mean Platelet Volume 11.9 FL (9.6-12.0); Monocytes % 5.7 % (1.7-12.7); Neutrophils % 83.9 % (38.7-73.9); Platelet Count 159 T/CUMM (130-400); Red Blood Count 2.67 MC/CUMM (3.8-5.5); Red Cell Distribution Width 16.1 % (9.3-17.3); White Blood Count 13.3 T/CUMM (4-12)
[2019-01-13 05:14] LABS: Albumin 1.9 G/DL (3.4-5.0); Bilirubin,Total 0.7 MG/DL (0.2-1.0); Calcium 8.3 MG/DL (8.5-10.1); Osmolality,Calculated 295.8 MOS/KG (273-304); Total Protein 5.3 G/DL (6.4-8.3)
[2019-01-13] MEDS: LEVOTHYROXINE 75 MCG TABLET PO SCH (06:25)
[2019-01-13] MEDS ORDERED: POTASSIUM CHLORIDE 20 MEQ TABLET PO ONE (08:21)
[2019-01-13] MEDS ORDERED: MAGNESIUM SULF RIDER 2 GM in PREMIX 1 EACH IV ONE (08:22)
[2019-01-13] MEDS: DEXTROSE 5% NACL 0.45% 1,000 ML IV SCH (08:39)
[2019-01-13] MEDS: MULTIVITAMIN (CENTRUM) TABLET PO SCH (08:42)
[2019-01-13] MEDS: FOLIC ACID 0.4 MG TABLET PO SCH (08:42)
[2019-01-13] MEDS: predniSONE 20 MG TABLET PO SCH (08:42)
[2019-01-13] MEDS: SPIRONOLACTONE 50 MG TABLET PO SCH (08:42)
[2019-01-13] MEDS: AMIODARONE 200 MG TABLET PO SCH (08:42)
[2019-01-13] MEDS: carvediloL 12.5 MG TABLET PO SCH ×2 (08:42→21:08)
[2019-01-13] MEDS: MEGESTROL 400 MG/10 ML UDCUP PO SCH (08:42)
[2019-01-13] MEDS: ASCORBIC ACID 500 MG TABLET PO SCH ×2 (08:42→21:07)
[2019-01-13] MEDS: DOCUSATE SODIUM 100 MG CAPSULE PO SCH ×3 (08:42→21:10)
[2019-01-13] MEDS: METHENAMINE HIPPURATE 1 GM TABLET PO SCH ×2 (08:42→21:06)
[2019-01-13] MEDS: HYDROXYCHLOROQUINE 200 MG TABLET PO SCH ×2 (08:42→21:07)
[2019-01-13] MEDS: FERROUS SULFATE 325 MG TABLET PO SCH (11:53)
[2019-01-13] MEDS: LEVOFLOXACIN INJ 500 MG in PREMIX 1 EACH IV SCH (11:53)
[2019-01-13] MEDS: ENOXAPARIN 30 MG/0.3 ML SYRINGE SUBCUT SCH (11:53)
[2019-01-13 13:40] LABS: Troponin I 0.178 NG/ML (0.00-0.045)
[2019-01-13] MEDS: SIMVASTATIN 40 MG TABLET PO SCH (21:06)
[2019-01-13] MEDS: ASPIRIN EC 81 MG TABLET PO SCH (21:06)
[2019-01-13] MEDS: MIRTAZAPINE 30 MG TABLET PO SCH (21:08)
[2019-01-14] MEDS: ALBUTEROL/IPRATROPIUM 3 ML NEB RESP TX SCH ×7 (00:18→23:18)
[2019-01-14 05:04] LABS: Basophils % 0.2 % (0.0-0.8); Hematocrit 28.1 VOL% (35.7-47.0); Hemoglobin 8.6 GM/DL (12.0-16.0); Immature Granulocytes Absolute 0.26 #; Lymphocytes # 0.5 10*3/uL (1.4-4.0); Lymphocytes % 3.4 % (21.3-54.2); Mean Corpuscular HGB Conc 30.6 GM/DL (32-36); Mean Corpuscular Volume 104.5 FL (87-102); Mean Platelet Volume 11.4 FL (9.6-12.0); Monocytes % 4.6 % (1.7-12.7); Neutrophils % 89.8 % (38.7-73.9); Platelet Count 176 T/CUMM (130-400); Red Blood Count 2.69 MC/CUMM (3.8-5.5); Red Cell Distribution Width 16.3 % (9.3-17.3); White Blood Count 13.1 T/CUMM (4-12)
[2019-01-14 05:28] LABS: Albumin 1.7 G/DL (3.4-5.0); Bilirubin,Total 0.5 MG/DL (0.2-1.0); Calcium 8.2 MG/DL (8.5-10.1); Osmolality,Calculated 298.5 MOS/KG (273-304); Total Protein 5.4 G/DL (6.4-8.3)
[2019-01-14 05:38] LABS: Troponin I 0.064 NG/ML (0.00-0.045)
[2019-01-14] MEDS: LEVOTHYROXINE 75 MCG TABLET PO SCH (06:09)
[2019-01-14 06:18] LABS: Band Neutrophils 2 % (0-10); Lymphocytes 2 % (20-55); Segmented Neutrophils 92 % (50-85); Total Cells Counted 100
[2019-01-14 06:19] LABS: Anisocytosis Slight; Macrocytosis Slight; Ovalocytes Slight; Tear Drop Cells Few
[2019-01-14 06:20] LABS: Platelet Estimate Normal
[2019-01-14] MEDS: HYDROXYCHLOROQUINE 200 MG TABLET PO SCH ×2 (09:01→21:18)
[2019-01-14] MEDS: carvediloL 12.5 MG TABLET PO SCH ×2 (09:01→21:14)
[2019-01-14] MEDS: MEGESTROL 400 MG/10 ML UDCUP PO SCH (09:01)
[2019-01-14] MEDS: DOCUSATE SODIUM 100 MG CAPSULE PO SCH ×3 (09:01→21:14)
[2019-01-14] MEDS: FOLIC ACID 0.4 MG TABLET PO SCH (09:01)
[2019-01-14] MEDS: METHENAMINE HIPPURATE 1 GM TABLET PO SCH ×2 (09:02→21:14)
[2019-01-14] MEDS: MULTIVITAMIN (CENTRUM) TABLET PO SCH (09:02)
[2019-01-14] MEDS: predniSONE 20 MG TABLET PO SCH (09:02)
[2019-01-14] MEDS: ASCORBIC ACID 500 MG TABLET PO SCH ×2 (09:02→21:13)
[2019-01-14] MEDS: SPIRONOLACTONE 50 MG TABLET PO SCH (09:02)
[2019-01-14] MEDS: AMIODARONE 200 MG TABLET PO SCH (09:02)
[2019-01-14] MEDS: LEVOFLOXACIN INJ 500 MG in PREMIX 1 EACH IV SCH (12:06)
[2019-01-14] MEDS: ENOXAPARIN 30 MG/0.3 ML SYRINGE SUBCUT SCH (12:07)
[2019-01-14] MEDS ORDERED: DEXTROSE 50% 25 GM/50 ML VIAL IV PRN (13:35)
[2019-01-14] MEDS ORDERED: GLUCAGON 1 MG VIAL IM PRN (13:35)
[2019-01-14] MEDS: cefTRIAXone 1,000 MG in SYRINGE 1 EACH IV SCH (16:46)
[2019-01-14] MEDS: INSULIN REGULAR 100 UNIT/ML SUBCUT SCH ×2 (17:32→21:14)
[2019-01-14] MEDS: SIMVASTATIN 40 MG TABLET PO SCH (21:13)
[2019-01-14] MEDS: ASPIRIN EC 81 MG TABLET PO SCH (21:14)
[2019-01-14] MEDS: MIRTAZAPINE 30 MG TABLET PO SCH (21:14)
[2019-01-15] MEDS: ALBUTEROL/IPRATROPIUM 3 ML NEB RESP TX SCH ×5 (03:33→19:05)
[2019-01-15 04:22] LABS: Basophils % 0.1 % (0.0-0.8); Hematocrit 28.4 VOL% (35.7-47.0); Hemoglobin 9.1 GM/DL (12.0-16.0); Immature Granulocytes % 1.6 %; Lymphocytes # 0.6 10*3/uL (1.4-4.0); Lymphocytes % 4.5 % (21.3-54.2); Mean Corpuscular Volume 99.6 FL (87-102); Mean Platelet Volume 11.1 FL (9.6-12.0); Monocytes % 4.1 % (1.7-12.7); Neutrophils % 89.7 % (38.7-73.9); Platelet Count 199 T/CUMM (130-400); Red Blood Count 2.85 MC/CUMM (3.8-5.5); Red Cell Distribution Width 15.9 % (9.3-17.3); White Blood Count 12.3 T/CUMM (4-12)
[2019-01-15 05:07] LABS: Folate > 24.0 NG/ML (5.4-24.0); Vitamin B12 > 2000 PG/ML (211-911)
[2019-01-15 05:28] LABS: Alanine Aminotransferase 23 U/L (13-56); Albumin 1.9 G/DL (3.4-5.0); Alkaline Phosphatase 69 U/L (45-117); Aspartate Amino Transferase 10 U/L (0-37); Bilirubin,Total < 0.39 MG/DL (0.2-1.0); Blood Urea Nitrogen 43 MG/DL (7-18); Calcium 8.6 MG/DL (8.5-10.1); Estimated Glom Filtration Rate 30 ML/MIN; Glucose 393 MG/DL (74-106); Osmolality,Calculated 307.3 MOS/KG (273-304); Risk Ratio 3.26; Total Protein 5.4 G/DL (6.4-8.3); VLDL CHOLESTEROL 8.8 MG/DL
[2019-01-15 05:33] LABS: Free T4 (Free Thyroxine) 1.5 NG/DL (0.76-1.46); Thyroid Stimulating Hormone 0.039 uIU/ml (0.358-3.74)
[2019-01-15] MEDS: LEVOTHYROXINE 75 MCG TABLET PO SCH (05:34)
[2019-01-15 05:46] LABS: Band Neutrophils 1 % (0-10); Lymphocytes 6 % (20-55); Segmented Neutrophils 89 % (50-85); Total Cells Counted 100
[2019-01-15 05:47] LABS: Anisocytosis 1+; Platelet Estimate Normal; Tear Drop Cells 1+
[2019-01-15] MEDS: INSULIN REGULAR 100 UNIT/ML SUBCUT SCH ×4 (09:05→21:36)
[2019-01-15] MEDS: FOLIC ACID 0.4 MG TABLET PO SCH (09:06)
[2019-01-15] MEDS: AMIODARONE 200 MG TABLET PO SCH (09:06)
[2019-01-15] MEDS: DOCUSATE SODIUM 100 MG CAPSULE PO SCH ×3 (09:06→21:39)
[2019-01-15] MEDS: HYDROXYCHLOROQUINE 200 MG TABLET PO SCH ×2 (09:06→21:39)
[2019-01-15] MEDS: MULTIVITAMIN (CENTRUM) TABLET PO SCH (09:06)
[2019-01-15] MEDS: SPIRONOLACTONE 50 MG TABLET PO SCH (09:06)
[2019-01-15] MEDS: predniSONE 20 MG TABLET PO SCH (09:06)
[2019-01-15] MEDS: carvediloL 12.5 MG TABLET PO SCH ×2 (09:06→21:38)
[2019-01-15] MEDS: METHENAMINE HIPPURATE 1 GM TABLET PO SCH ×2 (09:06→21:39)
[2019-01-15] MEDS: MEGESTROL 400 MG/10 ML UDCUP PO SCH (09:06)
[2019-01-15] MEDS: ASCORBIC ACID 500 MG TABLET PO SCH ×2 (09:06→21:38)
[2019-01-15] MEDS ORDERED: FUROSEMIDE 40 MG/4 ML VIAL IV ONE ×2 (10:20→16:00)
[2019-01-15] MEDS: sitaGLIPtin 25 MG TABLET PO SCH (10:42)
[2019-01-15] MEDS ORDERED: LEVOTHYROXINE 75 MCG TABLET PO SCH (11:54)
[2019-01-15] MEDS: ENOXAPARIN 30 MG/0.3 ML SYRINGE SUBCUT SCH (12:02)
[2019-01-15] MEDS: BUDESONIDE/FORMOTEROL 160-4.5 INHALER 6 GM INH SCH ×2 (15:11→21:39)
[2019-01-15] MEDS: cefTRIAXone 1,000 MG in SYRINGE 1 EACH IV SCH (16:50)
[2019-01-15] MEDS ORDERED: SPIRONOLACTONE 25 MG TABLET PO SCH (19:44)
[2019-01-15] MEDS ORDERED: INSULIN GLARGINE 100 UNIT/ML SUBCUT SCH ×3 (21:00)
[2019-01-15] MEDS: ASPIRIN EC 81 MG TABLET PO SCH (21:39)
[2019-01-15] MEDS: MIRTAZAPINE 30 MG TABLET PO SCH (21:39)
[2019-01-15] MEDS: SIMVASTATIN 40 MG TABLET PO SCH (21:39)
[2019-01-16] MEDS: ALBUTEROL/IPRATROPIUM 3 ML NEB RESP TX SCH ×5 (00:41→14:17)
[2019-01-16] MEDS ORDERED: POLYETHYLENE GLYCOL POWDER 17 GM PACK PO PRN (04:20)
[2019-01-16 05:28] LABS: Basophils % 0.1 % (0.0-0.8); Hematocrit 27.6 VOL% (35.7-47.0); Hemoglobin 8.6 GM/DL (12.0-16.0); Immature Granulocytes Absolute 0.26 #; Lymphocytes # 0.8 10*3/uL (1.4-4.0); Lymphocytes % 6.5 % (21.3-54.2); Mean Corpuscular HGB Conc 31.2 GM/DL (32-36); Mean Corpuscular Volume 100.7 FL (87-102); Mean Platelet Volume 10.8 FL (9.6-12.0); Monocytes % 4.2 % (1.7-12.7); Neutrophils % 87.2 % (38.7-73.9); Platelet Count 233 T/CUMM (130-400); Red Blood Count 2.74 MC/CUMM (3.8-5.5); White Blood Count 12.7 T/CUMM (4-12)
[2019-01-16 05:44] LABS: Alanine Aminotransferase 20 U/L (13-56); Albumin 1.8 G/DL (3.4-5.0); Alkaline Phosphatase 62 U/L (45-117); Aspartate Amino Transferase 6 U/L (0-37); Bilirubin,Total < 0.39 MG/DL (0.2-1.0); Blood Urea Nitrogen 50 MG/DL (7-18); Calcium 8.2 MG/DL (8.5-10.1); Estimated Glom Filtration Rate 26 ML/MIN; Glucose 360 MG/DL (74-106); Osmolality,Calculated 302.7 MOS/KG (273-304); Total Protein 4.9 G/DL (6.4-8.3)
[2019-01-16] MEDS: INSULIN REGULAR 100 UNIT/ML SUBCUT SCH ×2 (08:27→12:26)
[2019-01-16] MEDS ORDERED: POLYETHYLENE GLYCOL POWDER 17 GM PACK PO SCH (09:00)
[2019-01-16] MEDS ORDERED: predniSONE 10 MG TABLET PO SCH (09:00)
[2019-01-16] MEDS: MEGESTROL 400 MG/10 ML UDCUP PO SCH (09:35)
[2019-01-16] MEDS: METHENAMINE HIPPURATE 1 GM TABLET PO SCH (09:36)
[2019-01-16] MEDS: MULTIVITAMIN (CENTRUM) TABLET PO SCH (09:36)
[2019-01-16] MEDS: DOCUSATE SODIUM 100 MG CAPSULE PO SCH ×2 (09:36→09:38)
[2019-01-16] MEDS: AMIODARONE 200 MG TABLET PO SCH (09:36)
[2019-01-16] MEDS: FOLIC ACID 0.4 MG TABLET PO SCH (09:37)
[2019-01-16] MEDS: carvediloL 12.5 MG TABLET PO SCH (09:37)
[2019-01-16] MEDS: ASCORBIC ACID 500 MG TABLET PO SCH (09:37)
[2019-01-16] MEDS: HYDROXYCHLOROQUINE 200 MG TABLET PO SCH (09:38)
[2019-01-16] MEDS: sitaGLIPtin 25 MG TABLET PO SCH (09:38)
[2019-01-16] MEDS: BUDESONIDE/FORMOTEROL 160-4.5 INHALER 6 GM INH SCH (09:39)
[2019-01-16] MEDS ORDERED: SODIUM PHOSPHATE ENEMA 133 ML BOTTLE RECTAL ONE (10:30)
[2019-01-16] MEDS: ENOXAPARIN 30 MG/0.3 ML SYRINGE SUBCUT SCH (12:29)
[2019-01-16] MEDS: FERROUS SULFATE 325 MG TABLET PO SCH (12:39)
[2019-01-16] MEDS ORDERED: INSULIN LISPRO 100 UNIT/ML SUBCUT ONE (12:50)
[2019-01-16] MEDS: cefTRIAXone 1,000 MG in SYRINGE 1 EACH IV SCH (16:05)
[2019-01-16 16:09] VITALS: BP 126/46
[2019-01-16] MEDS ORDERED: INSULIN GLARGINE 100 UNIT/ML SUBCUT SCH (21:00)
== END 2019-01-16 16:10 | DRG 871 ==
LOC: N.ED 07:53 → N.EDINP 09:35 → SUATTDRO 09:35 → N.5E 09:59
PROVIDERS: ADMIT Internal Medicine; ATTEND Internal Medicine

== ENCOUNTER 2019-03-19 18:17 | Inpatient (IN) ==
[2019-03-19 19:04] LABS: Basophils # 0.1 10*3/uL (0.0-0.2); Basophils % 0.6 % (0.0-0.8); Eosinophils % 0.1 % (0.00-10.9); Hematocrit 31.1 VOL% (35.7-47.0); Hemoglobin 10.1 GM/DL (12.0-16.0); Immature Granulocytes % 1.1 %; Immature Granulocytes Absolute 0.09 #; Lymphocytes # 1.8 10*3/uL (1.4-4.0); Lymphocytes % 21.3 % (21.3-54.2); Mean Corpuscular HGB Conc 32.5 GM/DL (32-36); Mean Corpuscular Volume 95.7 FL (87-102); Mean Platelet Volume 10.6 FL (9.6-12.0); Monocytes % 12.3 % (1.7-12.7); Neutrophils % 64.6 % (38.7-73.9); Platelet Count 222 T/CUMM (130-400); Red Blood Count 3.25 MC/CUMM (3.8-5.5); Red Cell Distribution Width 15.5 % (9.3-17.3); White Blood Count 8.4 T/CUMM (4-12)
[2019-03-19 19:24] LABS: Albumin 3.2 G/DL (3.4-5.0); Bilirubin,Total 0.4 MG/DL (0.2-1.0); Calcium 9.8 MG/DL (8.5-10.1); Osmolality,Calculated 287.1 MOS/KG (273-304); Total Protein 6.5 G/DL (6.4-8.3)
[2019-03-19 19:28] LABS: Apearance,Urine Slightly Hazy (Clear); Bacteria,Urine Many /HPF (Few); Bilirubin,Urine Negative (Negative); Blood, Urine Negative (Negative); Glucose,Urine (UA) Negative (Negative); Ketones,Urine Negative (Negative); Nitrite,Urine Negative (Negative); Protein,Urine Negative; RBC,Urine 3 /HPF (0-4); Urine Specific Gravity 1.013 (1.001-1.035); Urine Urobilinogen < 2.0 EU/DL (0.2-1.0); WBC,Urine 40 /HPF (0-6)
[2019-03-19 19:29] LABS: Urine Color Yellow (Yellow)
[2019-03-19] MEDS ORDERED: SODIUM CHLORIDE 0.9% 500 ML IV STA (19:48)
[2019-03-19] MEDS ORDERED: cefTRIAXone 250 MG VIAL IV STA (19:49)
[2019-03-19] MEDS ORDERED: cefTRIAXone 1,000 MG VIAL ONE (20:15)
[2019-03-19] MEDS ORDERED: ACETAMINOPHEN 325 MG TABLET PO PRN (20:51)
[2019-03-19] MEDS ORDERED: DEXTROSE 10% 250 ML BAG IV PRN (20:51)
[2019-03-19] MEDS ORDERED: GLUCAGON 1 MG VIAL IM PRN (20:51)
[2019-03-19] MEDS ORDERED: SODIUM CHLORIDE 0.9% 1,000 ML IV SCH (21:00)
[2019-03-19] MEDS ORDERED: PROMETHAZINE 25 MG TABLET PO PRN (21:02)
[2019-03-19] MEDS: INSULIN REGULAR 100 UNIT/ML SUBCUT SCH (23:53)
[2019-03-19] MEDS: ALBUTEROL/IPRATROPIUM 3 ML NEB RESP TX SCH (23:55)
[2019-03-20] MEDS: ALBUTEROL/IPRATROPIUM 3 ML NEB RESP TX SCH ×6 (02:40→23:10)
[2019-03-20] MEDS: LEVOTHYROXINE 75 MCG TABLET PO SCH (06:27)
[2019-03-20 07:05] LABS: Basophils # 0.1 10*3/uL (0.0-0.2); Basophils % 0.8 % (0.0-0.8); Hematocrit 28.2 VOL% (35.7-47.0); Hemoglobin 9.1 GM/DL (12.0-16.0); Immature Granulocytes Absolute 0.06 #; Lymphocytes # 2.1 10*3/uL (1.4-4.0); Lymphocytes % 34.1 % (21.3-54.2); Mean Corpuscular HGB Conc 32.3 GM/DL (32-36); Mean Corpuscular Volume 96.2 FL (87-102); Mean Platelet Volume 10.6 FL (9.6-12.0); Monocytes % 13.6 % (1.7-12.7); Neutrophils % 50.5 % (38.7-73.9); Platelet Count 199 T/CUMM (130-400); Red Blood Count 2.93 MC/CUMM (3.8-5.5); Red Cell Distribution Width 15.6 % (9.3-17.3); White Blood Count 6.2 T/CUMM (4-12)
[2019-03-20 07:21] LABS: Calcium 9.3 MG/DL (8.5-10.1); Osmolality,Calculated 284.8 MOS/KG (273-304)
[2019-03-20] MEDS: INSULIN REGULAR 100 UNIT/ML SUBCUT SCH ×4 (08:50→21:32)
[2019-03-20] MEDS: CYANOCOBALAMIN 500 MCG TABLET PO SCH (08:53)
[2019-03-20] MEDS: FOLIC ACID 0.4 MG TABLET PO SCH (08:53)
[2019-03-20] MEDS: DULoxetine 30 MG CAPSULE PO SCH (08:53)
[2019-03-20] MEDS: predniSONE 5 MG TABLET PO SCH ×2 (08:54→21:32)
[2019-03-20] MEDS: PANTOPRAZOLE 40 MG TABLET PO SCH (08:54)
[2019-03-20] MEDS: HYDROXYCHLOROQUINE 200 MG TABLET PO SCH ×2 (08:54→21:33)
[2019-03-20] MEDS: FERROUS SULFATE 325 MG TABLET PO SCH (08:54)
[2019-03-20] MEDS: METHENAMINE HIPPURATE 1 GM TABLET PO SCH ×2 (08:56→21:33)
[2019-03-20] MEDS: ENOXAPARIN 30 MG/0.3 ML SYRINGE SUBCUT SCH (08:57)
[2019-03-20] MEDS: BUDESONIDE/FORMOTEROL 160-4.5 INHALER 6 GM INH SCH ×2 (08:57→21:33)
[2019-03-20] MEDS ORDERED: Biotin 1,000 MCG PO SCH (09:00)
[2019-03-20] MEDS ORDERED: ASCORBIC ACID 500 MG TABLET PO SCH (09:00)
[2019-03-20] MEDS ORDERED: AMIODARONE 200 MG TABLET PO SCH (09:00)
[2019-03-20] MEDS: ONDANSETRON 4 MG/2 ML VIAL IV PRN ×2 (10:10→18:37)
[2019-03-20] MEDS: SODIUM BICARB INJ 100 MEQ in STERILE WATER INJ 1,000 ML IV SCH (14:15)
[2019-03-20] MEDS: ASCORBIC ACID 500 MG TABLET PO SCH (21:32)
[2019-03-20] MEDS: SIMVASTATIN 40 MG TABLET PO SCH (21:33)
[2019-03-20] MEDS: ASPIRIN EC 81 MG TABLET PO SCH (21:33)
[2019-03-20] MEDS: cefTRIAXone 1,000 MG in SYRINGE 1 EACH IV SCH (21:51)
[2019-03-21] MEDS: ONDANSETRON 4 MG/2 ML VIAL IV PRN (01:30)
[2019-03-21] MEDS: SODIUM BICARB INJ 100 MEQ in STERILE WATER INJ 1,000 ML IV SCH ×2 (02:24→13:29)
[2019-03-21] MEDS: ALBUTEROL/IPRATROPIUM 3 ML NEB RESP TX SCH ×6 (03:35→23:50)
[2019-03-21 05:43] LABS: Basophils % 0.2 % (0.0-0.8); Hematocrit 26.8 VOL% (35.7-47.0); Hemoglobin 8.6 GM/DL (12.0-16.0); Immature Granulocytes % 2.1 %; Immature Granulocytes Absolute 0.11 #; Lymphocytes % 18.7 % (21.3-54.2); Mean Corpuscular HGB Conc 32.1 GM/DL (32-36); Mean Platelet Volume 11.2 FL (9.6-12.0); Monocytes % 9.3 % (1.7-12.7); Neutrophils % 69.7 % (38.7-73.9); Platelet Count 218 T/CUMM (130-400); Red Blood Count 2.82 MC/CUMM (3.8-5.5); Red Cell Distribution Width 15.3 % (9.3-17.3); White Blood Count 5.2 T/CUMM (4-12)
[2019-03-21] MEDS: LEVOTHYROXINE 75 MCG TABLET PO SCH (05:47)
[2019-03-21 06:03] LABS: Calcium 8.8 MG/DL (8.5-10.1); Osmolality,Calculated 285.7 MOS/KG (273-304)
[2019-03-21] MEDS: INSULIN REGULAR 100 UNIT/ML SUBCUT SCH ×4 (08:55→21:57)
[2019-03-21] MEDS: CYANOCOBALAMIN 500 MCG TABLET PO SCH (09:29)
[2019-03-21] MEDS: METHENAMINE HIPPURATE 1 GM TABLET PO SCH ×2 (09:29→21:07)
[2019-03-21] MEDS: ASCORBIC ACID 500 MG TABLET PO SCH ×2 (09:30→21:07)
[2019-03-21] MEDS: FERROUS SULFATE 325 MG TABLET PO SCH (09:30)
[2019-03-21] MEDS: DULoxetine 30 MG CAPSULE PO SCH (09:30)
[2019-03-21] MEDS: FOLIC ACID 0.4 MG TABLET PO SCH (09:30)
[2019-03-21] MEDS: HYDROXYCHLOROQUINE 200 MG TABLET PO SCH ×2 (09:30→21:08)
[2019-03-21] MEDS: PANTOPRAZOLE 40 MG TABLET PO SCH (09:30)
[2019-03-21] MEDS: ENOXAPARIN 30 MG/0.3 ML SYRINGE SUBCUT SCH (09:31)
[2019-03-21] MEDS: BUDESONIDE/FORMOTEROL 160-4.5 INHALER 6 GM INH SCH ×2 (09:31→21:08)
[2019-03-21] MEDS: predniSONE 5 MG TABLET PO SCH ×2 (09:31→21:08)
[2019-03-21] MEDS: SODIUM BICARB INJ 50 MEQ in SODIUM CHLORIDE 0.45% 1,000 ML IV SCH (13:35)
[2019-03-21] MEDS: DRONABINOL 2.5 MG CAPSULE PO SCH ×2 (14:34→21:57)
[2019-03-21] MEDS: SIMVASTATIN 40 MG TABLET PO SCH (21:08)
[2019-03-21] MEDS: ASPIRIN EC 81 MG TABLET PO SCH (21:08)
[2019-03-21] MEDS: cefTRIAXone 1,000 MG in SYRINGE 1 EACH IV SCH (21:11)
[2019-03-22] MEDS: SODIUM BICARB INJ 50 MEQ in SODIUM CHLORIDE 0.45% 1,000 ML IV SCH ×4 (00:02→22:27)
[2019-03-22] MEDS: ALBUTEROL/IPRATROPIUM 3 ML NEB RESP TX SCH ×6 (03:30→22:56)
[2019-03-22 04:59] LABS: Basophils % 0.2 % (0.0-0.8); Hematocrit 24.4 VOL% (35.7-47.0); Hemoglobin 7.8 GM/DL (12.0-16.0); Immature Granulocytes % 1.7 %; Immature Granulocytes Absolute 0.09 #; Mean Corpuscular Volume 95.7 FL (87-102); Mean Platelet Volume 11.2 FL (9.6-12.0); Monocytes % 13.2 % (1.7-12.7); Neutrophils % 65.9 % (38.7-73.9); Platelet Count 205 T/CUMM (130-400); Red Blood Count 2.55 MC/CUMM (3.8-5.5); Red Cell Distribution Width 15.4 % (9.3-17.3); White Blood Count 5.2 T/CUMM (4-12)
[2019-03-22 05:32] LABS: Calcium 7.8 MG/DL (8.5-10.1); Osmolality,Calculated 280.1 MOS/KG (273-304)
[2019-03-22] MEDS: LEVOTHYROXINE 75 MCG TABLET PO SCH (05:45)
[2019-03-22] MEDS ORDERED: SODIUM CHLORIDE 0.9% 1,000 ML IV PRN (07:30)
[2019-03-22] MEDS: INSULIN REGULAR 100 UNIT/ML SUBCUT SCH ×4 (07:35→22:07)
[2019-03-22 07:50] LABS: Hematocrit 25.8 VOL% (35.7-47.0)
[2019-03-22] MEDS: predniSONE 5 MG TABLET PO SCH ×2 (08:05→21:21)
[2019-03-22] MEDS: PANTOPRAZOLE 40 MG TABLET PO SCH (08:05)
[2019-03-22] MEDS: CYANOCOBALAMIN 500 MCG TABLET PO SCH (08:05)
[2019-03-22] MEDS: ENOXAPARIN 30 MG/0.3 ML SYRINGE SUBCUT SCH (08:06)
[2019-03-22] MEDS: FOLIC ACID 0.4 MG TABLET PO SCH (08:06)
[2019-03-22] MEDS: ASCORBIC ACID 500 MG TABLET PO SCH ×2 (08:06→21:21)
[2019-03-22] MEDS: FERROUS SULFATE 325 MG TABLET PO SCH (08:06)
[2019-03-22] MEDS: DULoxetine 30 MG CAPSULE PO SCH (08:06)
[2019-03-22] MEDS: HYDROXYCHLOROQUINE 200 MG TABLET PO SCH ×2 (08:06→21:21)
[2019-03-22] MEDS: DRONABINOL 2.5 MG CAPSULE PO SCH ×2 (08:30→22:08)
[2019-03-22] MEDS: METHENAMINE HIPPURATE 1 GM TABLET PO SCH ×2 (08:30→21:21)
[2019-03-22] MEDS: BUDESONIDE/FORMOTEROL 160-4.5 INHALER 6 GM INH SCH ×2 (09:53→22:26)
[2019-03-22] MEDS: ASPIRIN EC 81 MG TABLET PO SCH (21:20)
[2019-03-22] MEDS: cefTRIAXone 1,000 MG in SYRINGE 1 EACH IV SCH (21:21)
[2019-03-22] MEDS: SIMVASTATIN 40 MG TABLET PO SCH (21:21)
[2019-03-23] MEDS: ALBUTEROL/IPRATROPIUM 3 ML NEB RESP TX SCH ×3 (02:58→10:45)
[2019-03-23] MEDS: LEVOTHYROXINE 75 MCG TABLET PO SCH (06:00)
[2019-03-23 06:12] LABS: Basophils % 0.7 % (0.0-0.8); Hematocrit 29.1 VOL% (35.7-47.0); Hemoglobin 9.2 GM/DL (12.0-16.0); Immature Granulocytes Absolute 0.11 #; Lymphocytes # 1.2 10*3/uL (1.4-4.0); Lymphocytes % 22.3 % (21.3-54.2); Mean Corpuscular HGB Conc 31.6 GM/DL (32-36); Mean Corpuscular Volume 97.3 FL (87-102); Mean Platelet Volume 10.6 FL (9.6-12.0); Monocytes % 13.8 % (1.7-12.7); Neutrophils % 61.2 % (38.7-73.9); Platelet Count 225 T/CUMM (130-400); Red Blood Count 2.99 MC/CUMM (3.8-5.5); Red Cell Distribution Width 16.2 % (9.3-17.3); White Blood Count 5.5 T/CUMM (4-12)
[2019-03-23 06:23] LABS: Calcium 8.2 MG/DL (8.5-10.1); Osmolality,Calculated 282.4 MOS/KG (273-304)
[2019-03-23] MEDS: METHENAMINE HIPPURATE 1 GM TABLET PO SCH (09:50)
[2019-03-23] MEDS: ASCORBIC ACID 500 MG TABLET PO SCH (09:50)
[2019-03-23] MEDS: PANTOPRAZOLE 40 MG TABLET PO SCH (09:50)
[2019-03-23] MEDS: FERROUS SULFATE 325 MG TABLET PO SCH (09:50)
[2019-03-23] MEDS: INSULIN REGULAR 100 UNIT/ML SUBCUT SCH ×2 (09:50→13:07)
[2019-03-23] MEDS: FOLIC ACID 0.4 MG TABLET PO SCH (09:50)
[2019-03-23] MEDS: DULoxetine 30 MG CAPSULE PO SCH (09:50)
[2019-03-23] MEDS: predniSONE 5 MG TABLET PO SCH (09:50)
[2019-03-23] MEDS: HYDROXYCHLOROQUINE 200 MG TABLET PO SCH (09:50)
[2019-03-23] MEDS: CYANOCOBALAMIN 500 MCG TABLET PO SCH (09:50)
[2019-03-23] MEDS: SODIUM BICARB INJ 50 MEQ in SODIUM CHLORIDE 0.45% 1,000 ML IV SCH (09:51)
[2019-03-23] MEDS: ENOXAPARIN 30 MG/0.3 ML SYRINGE SUBCUT SCH (09:51)
[2019-03-23] MEDS: BUDESONIDE/FORMOTEROL 160-4.5 INHALER 6 GM INH SCH (09:51)
[2019-03-23] MEDS: DRONABINOL 2.5 MG CAPSULE PO SCH (10:33)
[2019-03-23 12:12] VITALS: BP 164/72
== END 2019-03-23 16:33 | DRG 682 ==
LOC: EDBD → EDUNIT# → N.ED 18:17 → SUATTDRO 20:45 → N.EDINP 20:45 → N.TELEN 22:03
PROVIDERS: ADMIT Family Medicine; ATTEND Internal Medicine

== ENCOUNTER 2019-04-20 23:45 | Inpatient (IN) ==
[2019-04-20] MEDS ORDERED: ONDANSETRON 4 MG/2 ML VIAL IV STA (23:50)
[2019-04-20] MEDS ORDERED: SODIUM CHLORIDE 0.9% 500 ML IV STA (23:50)
[2019-04-20] MEDS ORDERED: HYDROmorphone 2 MG/1 ML VIAL IV STA (23:50)
[2019-04-20] MEDS ORDERED: HYDROmorphone 2 MG/1 ML VIAL ONE (23:51)
[2019-04-20] MEDS ORDERED: ONDANSETRON 4 MG/2 ML VIAL ONE (23:51)
[2019-04-21 00:35] LABS: Basophils % 0.4 % (0.0-0.8); Eosinophils # 0.1 10*3/uL (0.0-0.87); Eosinophils % 1.8 % (0.00-10.9); Hematocrit 35.6 VOL% (35.7-47.0); Hemoglobin 11.5 GM/DL (12.0-16.0); Immature Granulocytes % 1.1 %; Immature Granulocytes Absolute 0.06 #; Lymphocytes # 1.3 10*3/uL (1.4-4.0); Lymphocytes % 22.8 % (21.3-54.2); Mean Corpuscular HGB Conc 32.3 GM/DL (32-36); Mean Platelet Volume 9.9 FL (9.6-12.0); Neutrophils % 61.9 % (38.7-73.9); Platelet Count 259 T/CUMM (130-400); Red Blood Count 3.71 MC/CUMM (3.8-5.5); Red Cell Distribution Width 15.3 % (9.3-17.3); White Blood Count 5.7 T/CUMM (4-12)
[2019-04-21 00:39] LABS: INR 0.9; PT Patient Result 10.1 SECS (9.6-12.2)
[2019-04-21 00:47] LABS: Albumin 3.5 G/DL (3.4-5.0); Bilirubin,Total 0.4 MG/DL (0.2-1.0); Calcium 8.9 MG/DL (8.5-10.1)
[2019-04-21] MEDS ORDERED: HYDROmorphone 2 MG/1 ML VIAL IV STA (02:04)
[2019-04-21] MEDS ORDERED: ONDANSETRON 4 MG/2 ML VIAL IV STA (02:05)
[2019-04-21 02:38] LABS: Apearance,Urine CLEAR (Clear); Bacteria,Urine Many /HPF (Few); Bilirubin,Urine Negative (Negative); Blood, Urine Negative (Negative); Glucose,Urine (UA) Negative (Negative); Hyaline Casts,Urine 1 /LPF (0-3); Ketones,Urine Negative (Negative); Mucus,Urine Occasional /LPF (Occasional); Nitrite,Urine Negative (Negative); Protein,Urine Negative; RBC,Urine 3 /HPF (0-4); Urine Color Yellow (Yellow); Urine Urobilinogen < 2.0 EU/DL (0.2-1.0); WBC,Urine 3 /HPF (0-6)
[2019-04-21] MEDS ORDERED: DEXTROSE 50% 25 GM/50 ML SYRINGE IV PRN (04:55)
[2019-04-21] MEDS ORDERED: DOCUSATE SODIUM 100 MG CAPSULE PO PRN (04:55)
[2019-04-21] MEDS ORDERED: PROMETHAZINE 25 MG/1 ML VIAL IM PRN (04:55)
[2019-04-21] MEDS ORDERED: ACETAMINOPHEN 325 MG TABLET PO PRN (04:55)
[2019-04-21] MEDS ORDERED: GLUCAGON 1 MG VIAL IM PRN (04:55)
[2019-04-21] MEDS ORDERED: ALBUTEROL/IPRATROPIUM 3 ML NEB RESP TX PRN (04:55)
[2019-04-21] MEDS: INSULIN LISPRO 100 UNIT/ML SUBCUT SCH ×3 (06:49→18:34)
[2019-04-21] MEDS: SODIUM CHLORIDE 0.9% 1,000 ML IV SCH ×2 (06:52→12:45)
[2019-04-21] MEDS: HYDROmorphone 2 MG/1 ML VIAL IV PRN ×2 (06:55→15:15)
[2019-04-21] MEDS ORDERED: CLINDAMYCIN INJ 900 MG in PREMIX 1 EACH IV ONE (07:26)
[2019-04-21] MEDS ORDERED: DEXMEDETOMIDINE 200 MCG/2 ML VIAL ONE (08:30)
[2019-04-21] MEDS ORDERED: BUPIVACAINE SPINAL 0.75% 2 ML AMP SPINAL ONE (08:30)
[2019-04-21] MEDS ORDERED: MIDAZOLAM 2 MG/2 ML VIAL ONE (08:30)
[2019-04-21] MEDS ORDERED: KETAMINE 500 MG/10 ML VIAL ONE (08:31)
[2019-04-21] MEDS ORDERED: TEMAZEPAM 7.5 MG CAPSULE PO PRN (10:42)
[2019-04-21] MEDS ORDERED: BISACODYL 10 MG SUPP RECTAL PRN (10:42)
[2019-04-21] MEDS ORDERED: LACTULOSE 20 GM/30 ML UDCUP PO PRN (10:42)
[2019-04-21] MEDS ORDERED: diphenhydrAMINE CAP 25 MG CAPSULE PO PRN (10:42)
[2019-04-21] MEDS ORDERED: DEXAMETHASONE 4 MG/1 ML VIAL ONE (10:59)
[2019-04-21] MEDS ORDERED: ROPIVACAINE 0.5% 30 ML VIAL ONE (10:59)
[2019-04-21] MEDS: CLINDAMYCIN INJ 900 MG in PREMIX 1 EACH IV SCH ×2 (15:15→23:12)
[2019-04-22] MEDS: HYDROmorphone 2 MG/1 ML VIAL IV PRN (01:27)
[2019-04-22] MEDS: SODIUM CHLORIDE 0.9% 1,000 ML IV SCH ×2 (01:27→15:50)
[2019-04-22] MEDS: INSULIN LISPRO 100 UNIT/ML SUBCUT SCH ×4 (01:42→17:50)
[2019-04-22 05:54] LABS: Basophils % 0.5 % (0.0-0.8); Eosinophils # 0.3 10*3/uL (0.0-0.87); Eosinophils % 3.8 % (0.00-10.9); Hematocrit 26.3 VOL% (35.7-47.0); Hemoglobin 8.3 GM/DL (12.0-16.0); Immature Granulocytes % 0.9 %; Immature Granulocytes Absolute 0.08 #; Lymphocytes # 1.1 10*3/uL (1.4-4.0); Lymphocytes % 13.2 % (21.3-54.2); Mean Corpuscular HGB Conc 31.6 GM/DL (32-36); Mean Corpuscular Volume 98.5 FL (87-102); Mean Platelet Volume 10.2 FL (9.6-12.0); Monocytes % 11.5 % (1.7-12.7); Neutrophils % 70.1 % (38.7-73.9); Platelet Count 172 T/CUMM (130-400); Red Blood Count 2.67 MC/CUMM (3.8-5.5); Red Cell Distribution Width 15.2 % (9.3-17.3); White Blood Count 8.5 T/CUMM (4-12)
[2019-04-22 06:15] LABS: Calcium 7.8 MG/DL (8.5-10.1); Osmolality,Calculated 281.8 MOS/KG (273-304)
[2019-04-22] MEDS: FONDAPARINUX 2.5 MG/0.5 ML SYRINGE SUBCUT SCH (06:32)
[2019-04-22] MEDS ORDERED: POLYETHYLENE GLYCOL POWDER 17 GM PACK PO PRN (08:24)
[2019-04-22] MEDS ORDERED: oxyCODONE/ACETAMINOPHEN 5-325 MG TABLET PO PRN (08:24)
[2019-04-22] MEDS: Biotin 1,000 MCG PO SCH (09:13)
[2019-04-22] MEDS: FLUTICASONE 50 MCG NASAL SPRAY 16 GM BOTTLE BOTH NARES SCH (09:22)
[2019-04-22] MEDS: HYDROXYCHLOROQUINE 200 MG TABLET PO SCH ×2 (09:24→20:49)
[2019-04-22] MEDS: BUDESONIDE/FORMOTEROL 160-4.5 INHALER 6 GM INH SCH (09:24)
[2019-04-22] MEDS: METHENAMINE HIPPURATE 1 GM TABLET PO SCH ×2 (09:25→20:49)
[2019-04-22] MEDS: FOLIC ACID 1 MG TABLET PO SCH (09:25)
[2019-04-22] MEDS: DULoxetine 30 MG CAPSULE PO SCH (09:25)
[2019-04-22] MEDS: ASCORBIC ACID 500 MG TABLET PO SCH ×2 (09:25→20:49)
[2019-04-22] MEDS: CYANOCOBALAMIN 500 MCG TABLET PO SCH (09:25)
[2019-04-22] MEDS: FERROUS SULFATE 325 MG TABLET PO SCH (09:26)
[2019-04-22] MEDS: AMIODARONE 200 MG TABLET PO SCH ×2 (09:30→20:49)
[2019-04-22] MEDS: DOCUSATE SODIUM 100 MG CAPSULE PO PRN (09:31)
[2019-04-22] MEDS: ONDANSETRON 4 MG/2 ML VIAL IV PRN ×2 (10:03→17:22)
[2019-04-22] MEDS: ALBUTEROL/IPRATROPIUM 3 ML NEB RESP TX SCH ×2 (13:41→20:00)
[2019-04-22] MEDS: SIMVASTATIN 40 MG TABLET PO SCH (20:49)
[2019-04-23] MEDS: ALBUTEROL/IPRATROPIUM 3 ML NEB RESP TX SCH ×4 (01:15→19:34)
[2019-04-23] MEDS: INSULIN LISPRO 100 UNIT/ML SUBCUT SCH ×4 (01:55→19:07)
[2019-04-23 06:08] LABS: Basophils % 0.1 % (0.0-0.8); Eosinophils # 0.2 10*3/uL (0.0-0.87); Eosinophils % 2.6 % (0.00-10.9); Hematocrit 25.5 VOL% (35.7-47.0); Hemoglobin 8.4 GM/DL (12.0-16.0); Immature Granulocytes % 0.9 %; Immature Granulocytes Absolute 0.08 #; Mean Corpuscular HGB Conc 32.9 GM/DL (32-36); Mean Corpuscular Volume 95.9 FL (87-102); Mean Platelet Volume 10.3 FL (9.6-12.0); Monocytes % 9.3 % (1.7-12.7); Neutrophils % 75.1 % (38.7-73.9); Platelet Count 182 T/CUMM (130-400); Red Blood Count 2.66 MC/CUMM (3.8-5.5); White Blood Count 8.7 T/CUMM (4-12)
[2019-04-23 06:23] LABS: Calcium 8.3 MG/DL (8.5-10.1); Osmolality,Calculated 275.1 MOS/KG (273-304)
[2019-04-23] MEDS: LEVOTHYROXINE 75 MCG TABLET PO SCH (06:27)
[2019-04-23] MEDS: FONDAPARINUX 2.5 MG/0.5 ML SYRINGE SUBCUT SCH (06:27)
[2019-04-23] MEDS ORDERED: MAGNESIUM SULF RIDER 4 GM in PREMIX 1 EACH IV PRN (08:25)
[2019-04-23] MEDS ORDERED: MAGNESIUM SULF RIDER 2 GM in PREMIX 1 EACH IV PRN (08:25)
[2019-04-23] MEDS: Biotin 1,000 MCG PO SCH (09:11)
[2019-04-23] MEDS: ASCORBIC ACID 500 MG TABLET PO SCH ×2 (09:12→21:05)
[2019-04-23] MEDS: CYANOCOBALAMIN 500 MCG TABLET PO SCH (09:13)
[2019-04-23] MEDS: HYDROXYCHLOROQUINE 200 MG TABLET PO SCH ×2 (09:13→21:04)
[2019-04-23] MEDS: METHENAMINE HIPPURATE 1 GM TABLET PO SCH ×2 (09:13→21:05)
[2019-04-23] MEDS: FERROUS SULFATE 325 MG TABLET PO SCH (09:13)
[2019-04-23] MEDS: MAGNESIUM HYDROXIDE SUSP 30 ML UDCUP PO PRN ×2 (09:13→21:07)
[2019-04-23] MEDS: AMIODARONE 200 MG TABLET PO SCH ×2 (09:13→21:06)
[2019-04-23] MEDS: FOLIC ACID 1 MG TABLET PO SCH (09:13)
[2019-04-23] MEDS: DULoxetine 30 MG CAPSULE PO SCH (09:14)
[2019-04-23] MEDS: BUDESONIDE/FORMOTEROL 160-4.5 INHALER 6 GM INH SCH (09:15)
[2019-04-23] MEDS: FLUTICASONE 50 MCG NASAL SPRAY 16 GM BOTTLE BOTH NARES SCH (09:16)
[2019-04-23] MEDS ORDERED: SODIUM CHLORIDE 0.9% 500 ML IV ONE (16:26)
[2019-04-23] MEDS ORDERED: AMIKACIN 500 MG/2 ML VIAL IM SCH (19:00)
[2019-04-23] MEDS ORDERED: GENTAMICIN INJ 100 ML IV SCH (20:30)
[2019-04-23] MEDS: SIMVASTATIN 40 MG TABLET PO SCH (21:07)
[2019-04-24] MEDS: ALBUTEROL/IPRATROPIUM 3 ML NEB RESP TX SCH ×4 (00:12→19:23)
[2019-04-24] MEDS: INSULIN LISPRO 100 UNIT/ML SUBCUT SCH ×4 (00:25→18:55)
[2019-04-24 05:12] LABS: Basophils % 0.2 % (0.0-0.8); Eosinophils # 0.1 10*3/uL (0.0-0.87); Eosinophils % 2.2 % (0.00-10.9); Hematocrit 24.2 VOL% (35.7-47.0); Immature Granulocytes Absolute 0.06 #; Lymphocytes # 0.8 10*3/uL (1.4-4.0); Mean Corpuscular HGB Conc 33.1 GM/DL (32-36); Mean Corpuscular Volume 94.9 FL (87-102); Mean Platelet Volume 10.6 FL (9.6-12.0); Monocytes % 10.5 % (1.7-12.7); Neutrophils % 72.1 % (38.7-73.9); Platelet Count 197 T/CUMM (130-400); Red Blood Count 2.55 MC/CUMM (3.8-5.5)
[2019-04-24 05:28] LABS: Calcium 8.1 MG/DL (8.5-10.1); Osmolality,Calculated 270.5 MOS/KG (273-304)
[2019-04-24] MEDS: LEVOTHYROXINE 75 MCG TABLET PO SCH (05:45)
[2019-04-24] MEDS: FONDAPARINUX 2.5 MG/0.5 ML SYRINGE SUBCUT SCH (05:46)
[2019-04-24] MEDS ORDERED: SODIUM CHLORIDE 0.9% 1,000 ML IV PRN ×2 (08:21→08:35)
[2019-04-24] MEDS: ASCORBIC ACID 500 MG TABLET PO SCH ×2 (09:31→21:03)
[2019-04-24] MEDS: DULoxetine 30 MG CAPSULE PO SCH (09:31)
[2019-04-24] MEDS: FERROUS SULFATE 325 MG TABLET PO SCH (09:31)
[2019-04-24] MEDS: CYANOCOBALAMIN 500 MCG TABLET PO SCH (09:32)
[2019-04-24] MEDS: FOLIC ACID 1 MG TABLET PO SCH (09:32)
[2019-04-24] MEDS: Biotin 1,000 MCG PO SCH (09:33)
[2019-04-24] MEDS: FLUTICASONE 50 MCG NASAL SPRAY 16 GM BOTTLE BOTH NARES SCH (09:34)
[2019-04-24] MEDS: AMIODARONE 200 MG TABLET PO SCH ×2 (09:35→21:03)
[2019-04-24] MEDS: HYDROXYCHLOROQUINE 200 MG TABLET PO SCH ×2 (09:41→21:03)
[2019-04-24] MEDS: METHENAMINE HIPPURATE 1 GM TABLET PO SCH ×2 (09:42→21:03)
[2019-04-24] MEDS: BUDESONIDE/FORMOTEROL 160-4.5 INHALER 6 GM INH SCH (09:43)
[2019-04-24 20:05] LABS: Hematocrit 30.4 VOL% (35.7-47.0)
[2019-04-24] MEDS ORDERED: GENTAMICIN INJ 120 MG in PREMIX 1 EACH IV SCH (21:00)
[2019-04-24] MEDS: SIMVASTATIN 40 MG TABLET PO SCH (21:03)
[2019-04-25] MEDS: INSULIN LISPRO 100 UNIT/ML SUBCUT SCH ×4 (00:55→19:24)
[2019-04-25] MEDS: ALBUTEROL/IPRATROPIUM 3 ML NEB RESP TX SCH ×4 (00:58→19:32)
[2019-04-25 05:06] LABS: Basophils % 0.1 % (0.0-0.8); Eosinophils # 0.1 10*3/uL (0.0-0.87); Eosinophils % 1.7 % (0.00-10.9); Hematocrit 31.3 VOL% (35.7-47.0); Hemoglobin 10.5 GM/DL (12.0-16.0); Immature Granulocytes % 1.1 %; Immature Granulocytes Absolute 0.08 #; Lymphocytes # 0.9 10*3/uL (1.4-4.0); Lymphocytes % 12.4 % (21.3-54.2); Mean Corpuscular HGB Conc 33.5 GM/DL (32-36); Mean Corpuscular Volume 90.5 FL (87-102); Mean Platelet Volume 9.9 FL (9.6-12.0); Monocytes % 12.7 % (1.7-12.7); Platelet Count 236 T/CUMM (130-400); Red Blood Count 3.46 MC/CUMM (3.8-5.5); Red Cell Distribution Width 16.6 % (9.3-17.3); White Blood Count 7.5 T/CUMM (4-12)
[2019-04-25 05:26] LABS: Calcium 8.3 MG/DL (8.5-10.1); Osmolality,Calculated 264.8 MOS/KG (273-304)
[2019-04-25] MEDS: LEVOTHYROXINE 75 MCG TABLET PO SCH (05:50)
[2019-04-25] MEDS: METHENAMINE HIPPURATE 1 GM TABLET PO SCH ×2 (08:36→20:59)
[2019-04-25] MEDS: ASCORBIC ACID 500 MG TABLET PO SCH ×2 (08:36→20:59)
[2019-04-25] MEDS: FOLIC ACID 1 MG TABLET PO SCH (08:36)
[2019-04-25] MEDS: DULoxetine 30 MG CAPSULE PO SCH (08:36)
[2019-04-25] MEDS: AMIODARONE 200 MG TABLET PO SCH ×2 (08:36→20:59)
[2019-04-25] MEDS: Biotin 1,000 MCG PO SCH (08:37)
[2019-04-25] MEDS: FERROUS SULFATE 325 MG TABLET PO SCH (08:37)
[2019-04-25] MEDS: CYANOCOBALAMIN 500 MCG TABLET PO SCH (08:37)
[2019-04-25] MEDS: HYDROXYCHLOROQUINE 200 MG TABLET PO SCH ×2 (08:42→20:59)
[2019-04-25] MEDS: BUDESONIDE/FORMOTEROL 160-4.5 INHALER 6 GM INH SCH (08:44)
[2019-04-25] MEDS: FLUTICASONE 50 MCG NASAL SPRAY 16 GM BOTTLE BOTH NARES SCH (08:44)
[2019-04-25] MEDS: SIMVASTATIN 40 MG TABLET PO SCH (21:00)
[2019-04-26] MEDS: ALBUTEROL/IPRATROPIUM 3 ML NEB RESP TX SCH ×2 (00:34→06:54)
[2019-04-26] MEDS: INSULIN LISPRO 100 UNIT/ML SUBCUT SCH ×3 (00:36→13:43)
[2019-04-26 05:40] LABS: Basophils % 0.3 % (0.0-0.8); Eosinophils # 0.1 10*3/uL (0.0-0.87); Eosinophils % 1.8 % (0.00-10.9); Hematocrit 29.8 VOL% (35.7-47.0); Immature Granulocytes % 0.8 %; Immature Granulocytes Absolute 0.06 #; Lymphocytes # 0.9 10*3/uL (1.4-4.0); Lymphocytes % 13.1 % (21.3-54.2); Mean Corpuscular HGB Conc 33.6 GM/DL (32-36); Mean Corpuscular Volume 90.9 FL (87-102); Mean Platelet Volume 9.9 FL (9.6-12.0); Monocytes % 15.8 % (1.7-12.7); Neutrophils % 68.2 % (38.7-73.9); Platelet Count 237 T/CUMM (130-400); Red Blood Count 3.28 MC/CUMM (3.8-5.5); Red Cell Distribution Width 15.9 % (9.3-17.3); White Blood Count 7.2 T/CUMM (4-12)
[2019-04-26 05:44] LABS: Calcium 8.3 MG/DL (8.5-10.1); Osmolality,Calculated 264.7 MOS/KG (273-304)
[2019-04-26] MEDS: LEVOTHYROXINE 75 MCG TABLET PO SCH (05:58)
[2019-04-26 06:27] LABS: Hypochromasia 1+; Lymphocytes 16 % (20-55); Platelet Estimate Adequate; Segmented Neutrophils 70 % (50-85); Total Cells Counted 100
[2019-04-26] MEDS: AMIODARONE 200 MG TABLET PO SCH (08:45)
[2019-04-26] MEDS: FERROUS SULFATE 325 MG TABLET PO SCH (08:45)
[2019-04-26] MEDS: DOCUSATE SODIUM 100 MG CAPSULE PO PRN (08:45)
[2019-04-26] MEDS: METHENAMINE HIPPURATE 1 GM TABLET PO SCH (08:46)
[2019-04-26] MEDS: HYDROXYCHLOROQUINE 200 MG TABLET PO SCH (08:46)
[2019-04-26] MEDS: ASCORBIC ACID 500 MG TABLET PO SCH (08:46)
[2019-04-26] MEDS: CYANOCOBALAMIN 500 MCG TABLET PO SCH (08:46)
[2019-04-26] MEDS: FOLIC ACID 1 MG TABLET PO SCH (08:46)
[2019-04-26] MEDS: BUDESONIDE/FORMOTEROL 160-4.5 INHALER 6 GM INH SCH (08:49)
[2019-04-26] MEDS: FLUTICASONE 50 MCG NASAL SPRAY 16 GM BOTTLE BOTH NARES SCH (08:50)
[2019-04-26] MEDS ORDERED: ASPIRIN EC 81 MG TABLET PO SCH (09:00)
[2019-04-26] MEDS: Biotin 1,000 MCG PO SCH (09:16)
[2019-04-26] MEDS: DULoxetine 30 MG CAPSULE PO SCH (09:23)
[2019-04-26] MEDS ORDERED: ENOXAPARIN 40 MG/0.4 ML SYRINGE SUBCUT SCH (10:30)
[2019-04-26 11:29] VITALS: BP 147/79
== END 2019-04-26 14:23 | DRG 469 ==
LOC: EDUNIT# → N.ED 23:45 → SUATTDRO 04-21 02:52 → N.EDINP 04-21 02:52 → N.3E 04-21 04:54
PROVIDERS: ADMIT Internal Medicine; ATTEND Internal Medicine

== ENCOUNTER 2019-06-13 03:08 | Inpatient (IN) ==
[2019-06-13] MEDS ORDERED: FUROSEMIDE 100 MG/10 ML VIAL IV STA (03:28)
[2019-06-13] MEDS ORDERED: ONDANSETRON 4 MG/2 ML VIAL IV STA (03:28)
[2019-06-13] MEDS ORDERED: methylPREDNISolone SOD SUC 125 MG/2 ML VIAL IV STA (03:28)
[2019-06-13] MEDS ORDERED: ALBUTEROL NEB SOLN 5 MG/ML 20 ML/BOTTLE CONT NEB SCH (03:30)
[2019-06-13 03:47] LABS: Basophils # 0.1 10*3/uL (0.0-0.2); Basophils % 0.9 % (0.0-0.8); Eosinophils # 0.2 10*3/uL (0.0-0.87); Eosinophils % 2.3 % (0.00-10.9); Hematocrit 38.1 VOL% (35.7-47.0); Hemoglobin 12.2 GM/DL (12.0-16.0); Immature Granulocytes % 1.5 %; Immature Granulocytes Absolute 0.12 #; Lymphocytes # 2.2 10*3/uL (1.4-4.0); Lymphocytes % 26.4 % (21.3-54.2); Mean Corpuscular Volume 93.6 FL (87-102); Mean Platelet Volume 10.1 FL (9.6-12.0); Monocytes % 11.1 % (1.7-12.7); Neutrophils % 57.8 % (38.7-73.9); Platelet Count 293 T/CUMM (130-400); Red Blood Count 4.07 MC/CUMM (3.8-5.5); Red Cell Distribution Width 15.6 % (9.3-17.3); White Blood Count 8.2 T/CUMM (4-12)
[2019-06-13 04:05] LABS: Alanine Aminotransferase 16 U/L (13-56); Albumin 3.1 G/DL (3.4-5.0); Alkaline Phosphatase 107 U/L (45-117); Aspartate Amino Transferase 12 U/L (0-37); Bilirubin,Total < 0.39 MG/DL (0.2-1.0); Blood Urea Nitrogen 17 MG/DL (7-18); Calcium 9.2 MG/DL (8.5-10.1); Estimated Glom Filtration Rate 44 ML/MIN; Glucose 105 MG/DL (74-106); Osmolality,Calculated 269.2 MOS/KG (273-304); Total Protein 6.5 G/DL (6.4-8.3)
[2019-06-13] MEDS ORDERED: MAGNESIUM SULF RIDER 2 GM in PREMIX 1 EACH IV STA (04:32)
[2019-06-13 04:36] LABS: INR 0.9
[2019-06-13] MEDS ORDERED: ENOXAPARIN 100 MG/ML SYRINGE SUBCUT STA (04:52)
[2019-06-13] MEDS ORDERED: DOCUSATE SODIUM 100 MG CAPSULE PO PRN (06:30)
[2019-06-13] MEDS ORDERED: DEXTROSE 10% 250 ML BAG IV PRN (06:30)
[2019-06-13] MEDS ORDERED: GLUCAGON 1 MG VIAL IM PRN (06:30)
[2019-06-13] MEDS ORDERED: ALBUTEROL 2.5 MG/3 ML NEB RESP TX PRN (06:30)
[2019-06-13] MEDS ORDERED: ACETAMINOPHEN 325 MG TABLET PO PRN (06:30)
[2019-06-13] MEDS: DOXYCYCLINE HYCLATE INJ 100 MG in SODIUM CHLORIDE 0.9% 100 ML IV SCH ×2 (07:40→22:05)
[2019-06-13] MEDS: INSULIN LISPRO 100 UNIT/ML SUBCUT SCH ×4 (07:58→22:23)
[2019-06-13] MEDS ORDERED: ENOXAPARIN 40 MG/0.4 ML SYRINGE ONE (09:07)
[2019-06-13] MEDS: FUROSEMIDE 40 MG/4 ML VIAL IV SCH (09:11)
[2019-06-13 09:22] LABS: Apearance,Urine CLEAR (Clear); Bacteria,Urine Occasional /HPF (Few); Bilirubin,Urine Negative (Negative); Blood, Urine Negative (Negative); Glucose,Urine (UA) Negative (Negative); Ketones,Urine Negative (Negative); Nitrite,Urine Positive (Negative); Protein,Urine Negative; RBC,Urine <1 /HPF (0-4); Urine Color Straw (Yellow); Urine Specific Gravity 1.005 (1.001-1.035); Urine Urobilinogen < 2.0 EU/DL (0.2-1.0); WBC,Urine <1 /HPF (0-6)
[2019-06-13] MEDS: ALBUTEROL/IPRATROPIUM 3 ML NEB RESP TX SCH ×2 (14:00→18:55)
[2019-06-14] MEDS: ALBUTEROL/IPRATROPIUM 3 ML NEB RESP TX SCH ×4 (00:30→19:39)
[2019-06-14] MEDS: methylPREDNISolone SOD SUC 40 MG/1 ML VIAL IV SCH (04:14)
[2019-06-14 06:06] LABS: Basophils % 0.1 % (0.0-0.8); Hematocrit 29.3 VOL% (35.7-47.0); Hemoglobin 9.6 GM/DL (12.0-16.0); Immature Granulocytes % 0.6 %; Immature Granulocytes Absolute 0.05 #; Lymphocytes # 0.7 10*3/uL (1.4-4.0); Mean Corpuscular HGB Conc 32.8 GM/DL (32-36); Mean Corpuscular Volume 92.7 FL (87-102); Mean Platelet Volume 10.6 FL (9.6-12.0); Monocytes % 7.3 % (1.7-12.7); Platelet Count 234 T/CUMM (130-400); Red Blood Count 3.16 MC/CUMM (3.8-5.5); Red Cell Distribution Width 15.9 % (9.3-17.3); White Blood Count 8.1 T/CUMM (4-12)
[2019-06-14 06:31] LABS: Albumin 2.3 G/DL (3.4-5.0); Bilirubin,Total 1.1 MG/DL (0.2-1.0); Calcium 8.8 MG/DL (8.5-10.1); Osmolality,Calculated 278.2 MOS/KG (273-304); Thyroid Stimulating Hormone 0.034 uIU/ml (0.358-3.74); Total Protein 5.4 G/DL (6.4-8.3)
[2019-06-14] MEDS: DOXYCYCLINE HYCLATE INJ 100 MG in SODIUM CHLORIDE 0.9% 100 ML IV SCH ×2 (09:28→20:44)
[2019-06-14] MEDS: INSULIN LISPRO 100 UNIT/ML SUBCUT SCH ×4 (09:29→20:45)
[2019-06-14] MEDS: FUROSEMIDE 40 MG/4 ML VIAL IV SCH (09:29)
[2019-06-14] MEDS: ENOXAPARIN 40 MG/0.4 ML SYRINGE SUBCUT SCH (09:29)
[2019-06-15] MEDS: ALBUTEROL/IPRATROPIUM 3 ML NEB RESP TX SCH ×4 (00:38→20:31)
[2019-06-15] MEDS: methylPREDNISolone SOD SUC 40 MG/1 ML VIAL IV SCH (02:43)
[2019-06-15 06:15] LABS: Hematocrit 30.9 VOL% (35.7-47.0); Hemoglobin 9.8 GM/DL (12.0-16.0); Immature Granulocytes % 0.9 %; Immature Granulocytes Absolute 0.07 #; Lymphocytes # 0.4 10*3/uL (1.4-4.0); Lymphocytes % 5.4 % (21.3-54.2); Mean Corpuscular HGB Conc 31.7 GM/DL (32-36); Mean Corpuscular Volume 95.1 FL (87-102); Mean Platelet Volume 10.8 FL (9.6-12.0); Monocytes % 5.7 % (1.7-12.7); Platelet Count 211 T/CUMM (130-400); Red Blood Count 3.25 MC/CUMM (3.8-5.5); Red Cell Distribution Width 15.9 % (9.3-17.3); White Blood Count 7.7 T/CUMM (4-12)
[2019-06-15 06:44] LABS: Calcium 8.8 MG/DL (8.5-10.1); Free T4 (Free Thyroxine) 1.45 NG/DL (0.76-1.46)
[2019-06-15] MEDS: INSULIN LISPRO 100 UNIT/ML SUBCUT SCH ×4 (08:51→20:22)
[2019-06-15] MEDS: DOXYCYCLINE HYCLATE INJ 100 MG in SODIUM CHLORIDE 0.9% 100 ML IV SCH ×2 (08:52→20:23)
[2019-06-15] MEDS: FUROSEMIDE 40 MG/4 ML VIAL IV SCH (08:53)
[2019-06-15] MEDS: ENOXAPARIN 40 MG/0.4 ML SYRINGE SUBCUT SCH (08:54)
[2019-06-16] MEDS: ALBUTEROL/IPRATROPIUM 3 ML NEB RESP TX SCH ×4 (02:10→19:34)
[2019-06-16] MEDS: methylPREDNISolone SOD SUC 40 MG/1 ML VIAL IV SCH (03:38)
[2019-06-16 05:50] LABS: Basophils % 0.1 % (0.0-0.8); Hematocrit 32.3 VOL% (35.7-47.0); Hemoglobin 10.1 GM/DL (12.0-16.0); Immature Granulocytes % 0.6 %; Immature Granulocytes Absolute 0.05 #; Lymphocytes # 1.5 10*3/uL (1.4-4.0); Lymphocytes % 18.8 % (21.3-54.2); Mean Corpuscular HGB Conc 31.3 GM/DL (32-36); Mean Corpuscular Volume 95.6 FL (87-102); Mean Platelet Volume 10.2 FL (9.6-12.0); Monocytes % 9.8 % (1.7-12.7); Neutrophils % 70.7 % (38.7-73.9); Platelet Count 243 T/CUMM (130-400); Red Blood Count 3.38 MC/CUMM (3.8-5.5); Red Cell Distribution Width 15.6 % (9.3-17.3)
[2019-06-16 06:25] LABS: Calcium 9.2 MG/DL (8.5-10.1); Osmolality,Calculated 276.7 MOS/KG (273-304)
[2019-06-16] MEDS: INSULIN LISPRO 100 UNIT/ML SUBCUT SCH ×4 (08:58→22:58)
[2019-06-16] MEDS: DOXYCYCLINE HYCLATE INJ 100 MG in SODIUM CHLORIDE 0.9% 100 ML IV SCH (08:59)
[2019-06-16] MEDS: POTASSIUM CHLORIDE 20 MEQ TABLET PO PRN ×4 (09:00→18:38)
[2019-06-16] MEDS: ENOXAPARIN 40 MG/0.4 ML SYRINGE SUBCUT SCH (09:00)
[2019-06-16] MEDS: FUROSEMIDE 40 MG/4 ML VIAL IV SCH (09:00)
[2019-06-16] MEDS: LEVOFLOXACIN 500 MG TABLET PO SCH (15:50)
[2019-06-16] MEDS: ONDANSETRON 4 MG/2 ML VIAL IV PRN (23:15)
[2019-06-17] MEDS: ALBUTEROL/IPRATROPIUM 3 ML NEB RESP TX SCH ×4 (00:24→20:34)
[2019-06-17] MEDS: methylPREDNISolone SOD SUC 40 MG/1 ML VIAL IV SCH (02:06)
[2019-06-17 06:48] LABS: Calcium 9.3 MG/DL (8.5-10.1); Osmolality,Calculated 273.1 MOS/KG (273-304)
[2019-06-17] MEDS: FUROSEMIDE 40 MG/4 ML VIAL IV SCH (08:40)
[2019-06-17] MEDS: INSULIN LISPRO 100 UNIT/ML SUBCUT SCH ×4 (08:45→21:20)
[2019-06-17] MEDS: ENOXAPARIN 40 MG/0.4 ML SYRINGE SUBCUT SCH (08:46)
[2019-06-17] MEDS: LEVOFLOXACIN 500 MG TABLET PO SCH (16:25)
[2019-06-18] MEDS: ALBUTEROL/IPRATROPIUM 3 ML NEB RESP TX SCH ×4 (01:46→19:42)
[2019-06-18] MEDS: methylPREDNISolone SOD SUC 40 MG/1 ML VIAL IV SCH (03:38)
[2019-06-18] MEDS: ONDANSETRON 4 MG/2 ML VIAL IV PRN ×2 (05:49→14:16)
[2019-06-18] MEDS: FUROSEMIDE 40 MG/4 ML VIAL IV SCH (08:00)
[2019-06-18] MEDS: ENOXAPARIN 40 MG/0.4 ML SYRINGE SUBCUT SCH (08:03)
[2019-06-18] MEDS: INSULIN LISPRO 100 UNIT/ML SUBCUT SCH ×4 (08:04→21:51)
[2019-06-18] MEDS: LEVOFLOXACIN 500 MG TABLET PO SCH (14:16)
[2019-06-18] MEDS: CETIRIZINE 10 MG TABLET PO SCH (16:54)
[2019-06-18] MEDS ORDERED: MIRTAZAPINE 30 MG TABLET PO SCH (21:00)
[2019-06-19] MEDS: ALBUTEROL/IPRATROPIUM 3 ML NEB RESP TX SCH ×3 (00:25→13:45)
[2019-06-19] MEDS: methylPREDNISolone SOD SUC 40 MG/1 ML VIAL IV SCH (04:32)
[2019-06-19 05:00] LABS: Basophils % 0.1 % (0.0-0.8); Eosinophils % 0.1 % (0.00-10.9); Hematocrit 37.7 VOL% (35.7-47.0); Hemoglobin 11.7 GM/DL (12.0-16.0); Immature Granulocytes % 1.2 %; Immature Granulocytes Absolute 0.09 #; Lymphocytes # 1.5 10*3/uL (1.4-4.0); Lymphocytes % 20.9 % (21.3-54.2); Mean Corpuscular Volume 96.2 FL (87-102); Mean Platelet Volume 10.2 FL (9.6-12.0); Monocytes % 8.6 % (1.7-12.7); Neutrophils % 69.1 % (38.7-73.9); Platelet Count 228 T/CUMM (130-400); Red Blood Count 3.92 MC/CUMM (3.8-5.5); Red Cell Distribution Width 15.7 % (9.3-17.3); White Blood Count 7.2 T/CUMM (4-12)
[2019-06-19 05:16] LABS: Calcium 9.3 MG/DL (8.5-10.1); Osmolality,Calculated 273.1 MOS/KG (273-304)
[2019-06-19] MEDS ORDERED: LEVOTHYROXINE 75 MCG TABLET PO SCH (06:30)
[2019-06-19] MEDS: FUROSEMIDE 40 MG/4 ML VIAL IV SCH (10:02)
[2019-06-19] MEDS: INSULIN LISPRO 100 UNIT/ML SUBCUT SCH ×2 (10:02→12:31)
[2019-06-19] MEDS: CETIRIZINE 10 MG TABLET PO SCH (10:03)
[2019-06-19] MEDS: ENOXAPARIN 40 MG/0.4 ML SYRINGE SUBCUT SCH (10:03)
[2019-06-19] MEDS ORDERED: BISACODYL 10 MG SUPP RECTAL PRN (15:24)
[2019-06-19] MEDS ORDERED: TEMAZEPAM 7.5 MG CAPSULE PO PRN (15:24)
[2019-06-19] MEDS ORDERED: DOCUSATE SODIUM 100 MG CAPSULE PO PRN (15:24)
[2019-06-19] MEDS ORDERED: MAGNESIUM HYDROXIDE SUSP 30 ML UDCUP PO PRN (15:24)
[2019-06-19] MEDS ORDERED: PROMETHAZINE 25 MG TABLET PO PRN (15:24)
[2019-06-19] MEDS ORDERED: ACETAMINOPHEN 325 MG TABLET PO PRN (15:24)
[2019-06-19] MEDS ORDERED: oxyCODONE/ACETAMINOPHEN 5-325 MG TABLET PO PRN (15:24)
[2019-06-19] MEDS ORDERED: POLYETHYLENE GLYCOL POWDER 17 GM PACK PO PRN (15:24)
[2019-06-19 15:34] VITALS: BP 126/60
[2019-06-19] MEDS: LEVOFLOXACIN 500 MG TABLET PO SCH (16:02)
[2019-06-19] MEDS ORDERED: ALBUTEROL/IPRATROPIUM 3 ML NEB RESP TX SCH (19:00)
[2019-06-19] MEDS ORDERED: predniSONE 5 MG TABLET PO SCH (21:00)
[2019-06-19] MEDS ORDERED: AMIODARONE 200 MG TABLET PO SCH (21:00)
[2019-06-19] MEDS ORDERED: ASCORBIC ACID 500 MG TABLET PO SCH (21:00)
[2019-06-19] MEDS ORDERED: HYDROXYCHLOROQUINE 200 MG TABLET PO SCH (21:00)
[2019-06-19] MEDS ORDERED: METHENAMINE HIPPURATE 1 GM TABLET PO SCH (21:00)
[2019-06-20] MEDS ORDERED: FOLIC ACID 0.4 MG TABLET PO SCH (09:00)
[2019-06-20] MEDS ORDERED: CYANOCOBALAMIN 500 MCG TABLET PO SCH (09:00)
[2019-06-20] MEDS ORDERED: FERROUS SULFATE 325 MG TABLET PO SCH (09:00)
[2019-06-20] MEDS ORDERED: FLUTICASONE 50 MCG NASAL SPRAY 16 GM BOTTLE BOTH NARES SCH (09:00)
[2019-06-20] MEDS ORDERED: PANTOPRAZOLE 40 MG TABLET PO SCH (09:00)
[2019-06-20] MEDS ORDERED: sitaGLIPtin 25 MG TABLET PO SCH (09:00)
[2019-06-20] MEDS ORDERED: BUDESONIDE/FORMOTEROL 160-4.5 INHALER 6 GM INH SCH (09:00)
[2019-06-20] MEDS ORDERED: BIOTIN 1000 MCG PO SCH (09:00)
[2019-06-20] MEDS ORDERED: DULoxetine 30 MG CAPSULE PO SCH (09:00)
[2019-06-20] MEDS ORDERED: ASPIRIN EC 81 MG TABLET PO SCH (09:00)
== END 2019-06-19 16:49 | disposition home or self-care (01) | DRG 291 ==
LOC: N.ED 03:08 → N.EDINP 05:47 → SUATTDRO 05:47 → N.5E 09:51
PROVIDERS: ADMIT Internal Medicine; ATTEND Internal Medicine Geriatric Medicine

== ENCOUNTER 2020-06-03 11:02 | Inpatient (IN) ==
[2020-06-03] MEDS ORDERED: ALBUTEROL 2.5 MG/3 ML NEB RESP TX STA (11:26)
[2020-06-03 11:43] LABS: Basophils % 0.5 % (0.0-0.8); Eosinophils % 0.3 % (0.00-10.9); Hematocrit 38.2 VOL% (35.7-47.0); Hemoglobin 12.5 GM/DL (12.0-16.0); Immature Granulocytes % 0.8 %; Immature Granulocytes Absolute 0.05 #; Lymphocytes # 1.2 10*3/uL (1.4-4.0); Lymphocytes % 18.6 % (21.3-54.2); Mean Corpuscular HGB Conc 32.7 GM/DL (32-36); Mean Corpuscular Volume 95.7 FL (87-102); Mean Platelet Volume 9.4 FL (9.6-12.0); Neutrophils % 71.8 % (38.7-73.9); Platelet Count 348 T/CUMM (130-400); Red Blood Count 3.99 MC/CUMM (3.8-5.5); Red Cell Distribution Width 14.3 % (9.3-17.3); White Blood Count 6.5 T/CUMM (4-12)
[2020-06-03 11:54] LABS: INR 0.9; PT Patient Result 10.1 SECS (9.8-11.9); Partial Thromboplastin Time 27.9 SECS (23.9-33.8)
[2020-06-03 12:02] LABS: Osmolality,Calculated 269.5 MOS/KG (273-304); Potassium 5.6 MMOL/L (3.5-5.1)
[2020-06-03] MEDS ORDERED: oxyCODONE/ACETAMINOPHEN 5-325 MG TABLET PO STA (13:13)
[2020-06-03] MEDS ORDERED: oxyCODONE/ACETAMINOPHEN 5-325 MG TABLET ONE (13:14)
[2020-06-03] MEDS ORDERED: DEXTROSE 50% 25 GM/50 ML VIAL IV PRN ×2 (14:27)
[2020-06-03] MEDS ORDERED: GLUCAGON 1 MG VIAL IM PRN ×2 (14:27)
[2020-06-03] MEDS: INSULIN LISPRO 100 UNIT/ML SUBCUT SCH ×2 (16:29→21:08)
[2020-06-04 07:01] LABS: Basophils % 0.3 % (0.0-0.8); Eosinophils # 0.1 10*3/uL (0.0-0.87); Eosinophils % 1.8 % (0.00-10.9); Hematocrit 36.1 VOL% (35.7-47.0); Hemoglobin 11.6 GM/DL (12.0-16.0); Immature Granulocytes Absolute 0.06 #; Lymphocytes # 1.5 10*3/uL (1.4-4.0); Lymphocytes % 25.1 % (21.3-54.2); Mean Corpuscular HGB Conc 32.1 GM/DL (32-36); Mean Platelet Volume 9.9 FL (9.6-12.0); Monocytes % 9.8 % (1.7-12.7); Platelet Count 316 T/CUMM (130-400); Red Blood Count 3.76 MC/CUMM (3.8-5.5); Red Cell Distribution Width 14.5 % (9.3-17.3)
[2020-06-04 07:20] LABS: Albumin 2.7 G/DL (3.4-5.0); Bilirubin,Total 0.7 MG/DL (0.2-1.0); Calcium 8.7 MG/DL (8.5-10.1); Osmolality,Calculated 268.5 MOS/KG (273-304); Potassium 5.2 MMOL/L (3.5-5.1); Total Protein 6.5 G/DL (6.4-8.3)
[2020-06-04] MEDS: predniSONE 5 MG TABLET PO SCH ×2 (09:43→21:30)
[2020-06-04] MEDS: ASPIRIN EC 81 MG TABLET PO SCH (09:43)
[2020-06-04] MEDS: FERROUS SULFATE 325 MG TABLET PO SCH (09:43)
[2020-06-04] MEDS: PANTOPRAZOLE 40 MG TABLET PO SCH (09:43)
[2020-06-04] MEDS: METHENAMINE HIPPURATE 1 GM TABLET PO SCH ×2 (09:43→21:31)
[2020-06-04] MEDS: INSULIN LISPRO 100 UNIT/ML SUBCUT SCH ×4 (09:43→21:32)
[2020-06-04] MEDS ORDERED: DIAZEPAM 5 MG TABLET PO ONE (11:56)
[2020-06-04] MEDS ORDERED: VANCOMYCIN 500 MG VIAL IRRIG ONE (11:56)
[2020-06-04] MEDS ORDERED: VANCOMYCIN INJ 1,000 MG in SODIUM CHLORIDE 0.9% 250 ML IV ONE (11:56)
[2020-06-04] MEDS ORDERED: diphenhydrAMINE CAP 25 MG CAPSULE PO ONE (11:56)
[2020-06-04] MEDS ORDERED: LIDOCAINE 1%/EPI INJ 20 ML VIAL ONE (12:23)
[2020-06-04] MEDS ORDERED: VANCOMYCIN 500 MG VIAL ONE (12:25)
[2020-06-04] MEDS ORDERED: MIDAZOLAM 2 MG/2 ML VIAL ONE (12:25)
[2020-06-04] MEDS ORDERED: HYDROmorphone 2 MG/1 ML VIAL ONE (12:25)
[2020-06-04] MEDS ORDERED: TISSUE ADHESIVE 1 EACH APPLICATOR TOP ONE (13:06)
[2020-06-04] MEDS ORDERED: LEVOTHYROXINE 25 MCG TABLET PO SCH (21:00)
[2020-06-04] MEDS: ASCORBIC ACID 500 MG TABLET PO SCH (21:38)
[2020-06-05 05:52] LABS: Basophils % 0.5 % (0.0-0.8); Eosinophils # 0.1 10*3/uL (0.0-0.87); Eosinophils % 1.8 % (0.00-10.9); Hematocrit 38.3 VOL% (35.7-47.0); Hemoglobin 12.9 GM/DL (12.0-16.0); Immature Granulocytes % 0.6 %; Immature Granulocytes Absolute 0.04 #; Lymphocytes # 0.9 10*3/uL (1.4-4.0); Lymphocytes % 14.4 % (21.3-54.2); Mean Corpuscular HGB Conc 33.7 GM/DL (32-36); Mean Corpuscular Volume 92.5 FL (87-102); Mean Platelet Volume 9.6 FL (9.6-12.0); Monocytes % 9.5 % (1.7-12.7); Neutrophils % 73.2 % (38.7-73.9); Platelet Count 313 T/CUMM (130-400); Red Blood Count 4.14 MC/CUMM (3.8-5.5); Red Cell Distribution Width 14.2 % (9.3-17.3); White Blood Count 6.2 T/CUMM (4-12)
[2020-06-05 06:33] LABS: Albumin 2.7 G/DL (3.4-5.0); Calcium 9.1 MG/DL (8.5-10.1); Potassium 4.8 MMOL/L (3.5-5.1); Total Protein 6.6 G/DL (6.4-8.3)
[2020-06-05] MEDS: ASCORBIC ACID 500 MG TABLET PO SCH (08:11)
[2020-06-05] MEDS: predniSONE 5 MG TABLET PO SCH (08:11)
[2020-06-05] MEDS: PANTOPRAZOLE 40 MG TABLET PO SCH (08:11)
[2020-06-05] MEDS: ASPIRIN EC 81 MG TABLET PO SCH (08:11)
[2020-06-05] MEDS: FERROUS SULFATE 325 MG TABLET PO SCH (08:11)
[2020-06-05] MEDS: METHENAMINE HIPPURATE 1 GM TABLET PO SCH (08:14)
[2020-06-05] MEDS: INSULIN LISPRO 100 UNIT/ML SUBCUT SCH ×2 (08:15→11:40)
[2020-06-05] MEDS ORDERED: AMIODARONE 200 MG TABLET PO SCH ×2 (09:00→21:00)
[2020-06-05 11:51] VITALS: BP 143/54
[2020-06-05] MEDS ORDERED: APIXABAN 2.5 MG TABLET PO SCH (21:00)
== END 2020-06-05 15:05 | disposition home health service (06) | DRG 243 ==
LOC: EDUNIT# → EDBD → N.ED 11:02 → SUATTDRO 14:27 → N.EDINP 14:27 → N.TELEN 16:41
PROVIDERS: ADMIT Internal Medicine; ATTEND Internal Medicine Geriatric Medicine

== ENCOUNTER 2021-08-09 20:12 | Inpatient (IN) ==
[2021-08-09] MEDS ORDERED: SODIUM CHLORIDE 0.9% 1,000 ML IV STA (20:24)
[2021-08-09] MEDS ORDERED: ONDANSETRON 4 MG/2 ML VIAL IV STA (20:24)
[2021-08-09] MEDS ORDERED: ONDANSETRON 4 MG/2 ML VIAL IV ONE (20:32)
[2021-08-09 20:57] LABS: Basophils % 0.2 % (0.0-0.8); Eosinophils # 0.1 10*3/uL (0.0-0.87); Eosinophils % 0.9 % (0.00-10.9); Hematocrit 41.1 VOL% (35.7-47.0); Hemoglobin 13.6 GM/DL (12.0-16.0); Immature Granulocytes % 0.5 %; Immature Granulocytes Absolute 0.05 #; Lymphocytes # 1.4 10*3/uL (1.4-4.0); Mean Corpuscular HGB Conc 33.1 GM/DL (32-36); Mean Corpuscular Volume 91.1 FL (87-102); Mean Platelet Volume 10.1 FL (9.6-12.0); Monocytes # 1.1 10*3/uL (0.11-0.8); Monocytes % 11.3 % (1.7-12.7); Neutrophils % 73.1 % (38.7-73.9); Platelet Count 349 T/CUMM (130-400); Red Blood Count 4.51 MC/CUMM (3.8-5.5); Red Cell Distribution Width 14.5 % (9.3-17.3); White Blood Count 9.7 T/CUMM (4-12)
[2021-08-09 21:16] LABS: Albumin 3.5 G/DL (3.4-5.0); Bilirubin,Total 0.6 MG/DL (0.20-1.00); Calcium 8.7 MG/DL (8.5-10.1); Potassium 3.9 MMOL/L (3.5-5.1); Total Protein 6.9 G/DL (6.4-8.2)
[2021-08-09 21:58] LABS: Bacteria,Urine Many /HPF (Few); Bilirubin,Urine Negative (Negative); Blood, Urine Negative (Negative); Glucose,Urine (UA) Negative (Negative); Hyaline Casts,Urine 3 /LPF (0-3); Ketones,Urine Negative (Negative); Mucus,Urine Occasional /LPF (Occasional); Nitrite,Urine Positive (Negative); Protein,Urine Negative (Negative); RBC,Urine 2 /HPF (0-4); Squamous Epithelial Cell,Urine Occasional /HPF (0-10); Urine Appearance Slightly Cloudy (Clear); Urine Color Yellow (Yellow); Urine Specific Gravity 1.025 (1.001-1.035); Urine Urobilinogen 0.2 eU/dL (<2.0); Urine pH 5.5 (4.5-8.0)
[2021-08-09] MEDS ORDERED: LEVOFLOXACIN INJ 500 MG/100 ML PREMIX IV ONE (22:11)
[2021-08-09] MEDS ORDERED: GLUCAGON 1 MG VIAL IM PRN (23:05)
[2021-08-09] MEDS ORDERED: hydrALAZINE 20 MG/1 ML VIAL IV PRN (23:05)
[2021-08-09] MEDS ORDERED: ONDANSETRON 4 MG/2 ML VIAL IV PRN (23:05)
[2021-08-09] MEDS ORDERED: MAGNESIUM SULF RIDER 2 GM/50 ML PREMIX IV PRN (23:05)
[2021-08-09] MEDS ORDERED: ACETAMINOPHEN 325 MG TABLET PO PRN (23:05)
[2021-08-09] MEDS ORDERED: POTASSIUM CHLORIDE RIDER 10 MEQ/100 ML PREMIX IV PRN (23:05)
[2021-08-09] MEDS ORDERED: CALCIUM CARBONATE CHEW 500 MG TABLET PO PRN (23:05)
[2021-08-09] MEDS ORDERED: MAGNESIUM SULF RIDER 4 GM/100 ML PREMIX IV PRN (23:05)
[2021-08-09] MEDS ORDERED: DEXTROSE 10% 250 ML BAG IV PRN (23:19)
[2021-08-09] MEDS: ENOXAPARIN 30 MG/0.3 ML SYRINGE SUBCUT SCH (23:28)
[2021-08-10] MEDS: ALBUTEROL 2.5 MG/3 ML NEB RESP TX SCH ×4 (00:50→19:30)
[2021-08-10] MEDS: metroNIDAZOLE INJ 500 MG/100 ML PREMIX IV SCH ×4 (01:15→23:14)
[2021-08-10] MEDS: SODIUM CHLORIDE 0.9% 1,000 ML IV SCH ×3 (01:16→23:12)
[2021-08-10 06:11] LABS: Basophils % 0.1 % (0.0-0.8); Eosinophils # 0.1 10*3/uL (0.0-0.87); Eosinophils % 1.7 % (0.00-10.9); Hematocrit 33.1 VOL% (35.7-47.0); Hemoglobin 10.7 GM/DL (12.0-16.0); Immature Granulocytes % 0.6 %; Immature Granulocytes Absolute 0.04 #; Lymphocytes # 1.6 10*3/uL (1.4-4.0); Lymphocytes % 21.5 % (21.3-54.2); Mean Corpuscular HGB Conc 32.3 GM/DL (32-36); Mean Platelet Volume 9.7 FL (9.6-12.0); Monocytes # 1.1 10*3/uL (0.11-0.8); Monocytes % 15.2 % (1.7-12.7); Neutrophils % 60.9 % (38.7-73.9); Platelet Count 221 T/CUMM (130-400); Red Blood Count 3.56 MC/CUMM (3.8-5.5); Red Cell Distribution Width 14.5 % (9.3-17.3); White Blood Count 7.3 T/CUMM (4-12)
[2021-08-10 06:49] LABS: Calcium 8.2 MG/DL (8.5-10.1); Osmolality,Calculated 276.7 MOS/KG (273-304); Potassium 3.9 MMOL/L (3.5-5.1); Thyroid Stimulating Hormone 0.199 uIU/ml (0.358-3.74)
[2021-08-10] MEDS: INSULIN REGULAR 100 UNIT/ML SUBCUT SCH ×4 (07:39→20:07)
[2021-08-10] MEDS: PANTOPRAZOLE 40 MG TABLET PO SCH (08:30)
[2021-08-10] MEDS: CIPROFLOXACIN INJ 400 MG/200 ML PREMIX IV SCH ×2 (10:57→21:15)
[2021-08-10] MEDS ORDERED: AMITRIPTYLINE 25 MG TABLET PO SCH (21:00)
[2021-08-10] MEDS ORDERED: AMIODARONE 200 MG TABLET PO SCH (21:00)
[2021-08-10] MEDS ORDERED: BENZONATATE 100 MG CAPSULE PO PRN (22:49)
[2021-08-10] MEDS: ENOXAPARIN 30 MG/0.3 ML SYRINGE SUBCUT SCH (23:14)
[2021-08-11] MEDS: ALBUTEROL 2.5 MG/3 ML NEB RESP TX SCH ×4 (00:05→19:20)
[2021-08-11 05:27] LABS: Basophils % 0.4 % (0.0-0.8); Eosinophils # 0.1 10*3/uL (0.0-0.87); Eosinophils % 1.4 % (0.00-10.9); Hematocrit 30.1 VOL% (35.7-47.0); Hemoglobin 9.7 GM/DL (12.0-16.0); Immature Granulocytes % 0.5 %; Immature Granulocytes Absolute 0.03 #; Lymphocytes # 1.3 10*3/uL (1.4-4.0); Mean Corpuscular HGB Conc 32.2 GM/DL (32-36); Mean Corpuscular Volume 93.5 FL (87-102); Mean Platelet Volume 10.4 FL (9.6-12.0); Monocytes # 0.9 10*3/uL (0.11-0.8); Monocytes % 15.4 % (1.7-12.7); Neutrophils % 59.3 % (38.7-73.9); Platelet Count 185 T/CUMM (130-400); Red Blood Count 3.22 MC/CUMM (3.8-5.5); Red Cell Distribution Width 14.6 % (9.3-17.3); White Blood Count 5.7 T/CUMM (4-12)
[2021-08-11 05:48] LABS: Calcium 8.2 MG/DL (8.5-10.1); Osmolality,Calculated 273.7 MOS/KG (273-304); Potassium 3.1 MMOL/L (3.5-5.1)
[2021-08-11] MEDS: INSULIN REGULAR 100 UNIT/ML SUBCUT SCH ×4 (07:44→22:24)
[2021-08-11] MEDS: POTASSIUM CHLORIDE 20 MEQ TABLET PO PRN ×4 (08:56→15:29)
[2021-08-11] MEDS: metroNIDAZOLE INJ 500 MG/100 ML PREMIX IV SCH ×2 (08:57→15:29)
[2021-08-11] MEDS ORDERED: FERROUS SULFATE 325 MG TABLET PO SCH (09:00)
[2021-08-11] MEDS: CIPROFLOXACIN INJ 400 MG/200 ML PREMIX IV SCH ×2 (09:41→22:00)
[2021-08-11] MEDS: PANTOPRAZOLE 40 MG TABLET PO SCH (12:01)
[2021-08-11] MEDS ORDERED: TUBERCULIN SKIN TEST 0.1 ML SYRINGE INTRADERM ONE (15:00)
[2021-08-11] MEDS: ASPIRIN EC 81 MG TABLET PO SCH (15:36)
[2021-08-11] MEDS ORDERED: DONEPEZIL 5 MG TABLET PO SCH (21:00)
[2021-08-11] MEDS: ENOXAPARIN 30 MG/0.3 ML SYRINGE SUBCUT SCH (23:41)
[2021-08-12] MEDS: ALBUTEROL 2.5 MG/3 ML NEB RESP TX SCH ×3 (01:00→13:30)
[2021-08-12] MEDS: metroNIDAZOLE 500 MG TABLET PO SCH ×2 (01:30→09:02)
[2021-08-12 06:06] LABS: Basophils % 0.3 % (0.0-0.8); Eosinophils # 0.2 10*3/uL (0.0-0.87); Eosinophils % 3.9 % (0.00-10.9); Hematocrit 32.9 VOL% (35.7-47.0); Hemoglobin 10.6 GM/DL (12.0-16.0); Immature Granulocytes % 0.7 %; Immature Granulocytes Absolute 0.04 #; Lymphocytes # 1.2 10*3/uL (1.4-4.0); Lymphocytes % 20.2 % (21.3-54.2); Mean Corpuscular HGB Conc 32.2 GM/DL (32-36); Mean Corpuscular Volume 92.7 FL (87-102); Mean Platelet Volume 10.5 FL (9.6-12.0); Neutrophils % 58.9 % (38.7-73.9); Platelet Count 211 T/CUMM (130-400); Red Blood Count 3.55 MC/CUMM (3.8-5.5); Red Cell Distribution Width 14.6 % (9.3-17.3); White Blood Count 5.9 T/CUMM (4-12)
[2021-08-12 06:23] LABS: Calcium 8.8 MG/DL (8.5-10.1); Osmolality,Calculated 272.7 MOS/KG (273-304); Potassium 4.7 MMOL/L (3.5-5.1)
[2021-08-12 06:27] LABS: Eosinophils 3 % (0-10); Lymphocytes 25 % (20-55); Platelet Estimate Adequate; Total Cells Counted 100
[2021-08-12] MEDS: INSULIN REGULAR 100 UNIT/ML SUBCUT SCH ×2 (07:30→11:59)
[2021-08-12] MEDS ORDERED: CIPROFLOXACIN 500 MG TABLET PO SCH (09:00)
[2021-08-12] MEDS: ASPIRIN EC 81 MG TABLET PO SCH (09:02)
[2021-08-12] MEDS: PANTOPRAZOLE 40 MG TABLET PO SCH (09:02)
[2021-08-12 12:16] VITALS: BP 159/56
== END 2021-08-12 14:06 | DRG 392 ==
LOC: N.ED 20:12 → N.EDINP 20:12 → N.3E 08-10 00:13
PROVIDERS: ADMIT Emergency Medicine; ATTEND Emergency Medicine

== ENCOUNTER 2021-12-21 22:34 | Inpatient (IN) ==
[2021-12-22 00:03] LABS: Basophils # 0.1 10*3/uL (0.0-0.2); Basophils % 0.3 % (0.0-0.8); Eosinophils % 0.1 % (0.00-10.9); Hematocrit 41.9 VOL% (35.7-47.0); Immature Granulocytes % 2.8 %; Immature Granulocytes Absolute 0.53 #; Lymphocytes # 0.9 10*3/uL (1.4-4.0); Lymphocytes % 4.9 % (21.3-54.2); Mean Corpuscular Volume 92.3 FL (87-102); Mean Platelet Volume 10.7 FL (9.6-12.0); Monocytes % 5.5 % (1.7-12.7); Neutrophils % 86.4 % (38.7-73.9); Platelet Count 530 T/CUMM (130-400); Red Blood Count 4.54 MC/CUMM (3.8-5.5); Red Cell Distribution Width 15.5 % (9.3-17.3); White Blood Count 18.7 T/CUMM (4-12)
[2021-12-22 00:26] LABS: Alanine Aminotransferase 38 U/L (13-56); Alkaline Phosphatase 119 U/L (45-117); Aspartate Amino Transferase 107 U/L (0-37); Blood Urea Nitrogen 39 MG/DL (7-18); Calcium 9.7 MG/DL (8.5-10.1); Carbon Dioxide 16 MMOL/L (21-32); Chloride 100 MMOL/L (98-107); Glucose 324 MG/DL (74-106); Osmolality,Calculated 285.5 MOS/KG (273-304); Potassium 5.3 MMOL/L (3.5-5.1); Sodium 132 MMOL/L (136-145); Total Protein 7.1 G/DL (6.4-8.2)
[2021-12-22] MEDS ORDERED: ASPIRIN 325 MG TABLET PO STA (01:13)
[2021-12-22] MEDS ORDERED: NITROGLYCERIN SL 0.4 MG TABLET SL STA (01:13)
[2021-12-22] MEDS ORDERED: SODIUM CHLORIDE 0.9% 1,000 ML IV STA (01:22)
[2021-12-22 01:30] LABS: Lymphocytes 4 % (20-55); Total Cells Counted 100
[2021-12-22 01:33] LABS: Platelet Estimate Increased
[2021-12-22 01:35] LABS: Acanthocytes Few; Burr Cells Few
[2021-12-22 01:36] LABS: Polychromasia Slight
[2021-12-22 02:57] LABS: Amorphous Crystals,Urine Occasional /HPF (Few); Bacteria,Urine Many /HPF (Few); Hyaline Casts,Urine 18 /LPF (0-3); Mucus,Urine Occasional /LPF (Occasional); RBC,Urine 4 /HPF (0-4); Urine Appearance Clear (Clear); Urine Color Yellow (Yellow); Urine pH 5.5 (4.5-8.0)
[2021-12-22 02:58] LABS: Bilirubin,Urine Small mg/dL (Negative); Blood, Urine Moderate mg/dL (Negative); Glucose,Urine (UA) Negative (Negative); Ketones,Urine Negative (Negative); Nitrite,Urine Negative (Negative); Protein,Urine Trace mg/dL (Negative); Urine Urobilinogen 0.2 eU/dL (<2.0)
[2021-12-22] MEDS ORDERED: ACETAMINOPHEN 325 MG TABLET PO PRN (04:42)
[2021-12-22] MEDS ORDERED: ONDANSETRON 4 MG/2 ML VIAL IV PRN (04:42)
[2021-12-22] MEDS ORDERED: DEXTROSE 10% 250 ML BAG IV PRN (04:42)
[2021-12-22] MEDS ORDERED: GLUCAGON 1 MG VIAL IM PRN (04:42)
[2021-12-22] MEDS ORDERED: BENZONATATE 100 MG CAPSULE PO PRN (05:18)
[2021-12-22] MEDS ORDERED: ALBUTEROL/IPRATROPIUM 3 ML NEB RESP TX PRN (05:18)
[2021-12-22] MEDS: SODIUM CHLORIDE 0.9% 1,000 ML IV SCH ×3 (05:41→17:36)
[2021-12-22] MEDS: LEVOTHYROXINE 25 MCG TABLET PO SCH (06:12)
[2021-12-22 06:23] LABS: Basophils # 0.1 10*3/uL (0.0-0.2); Basophils % 0.3 % (0.0-0.8); Eosinophils % 0.1 % (0.00-10.9); Hematocrit 33.1 VOL% (35.7-47.0); Immature Granulocytes % 1.3 %; Immature Granulocytes Absolute 0.24 #; Lymphocytes # 1.9 10*3/uL (1.4-4.0); Lymphocytes % 10.4 % (21.3-54.2); Mean Corpuscular HGB Conc 32.3 GM/DL (32-36); Mean Corpuscular Volume 89.5 FL (87-102); Mean Platelet Volume 10.6 FL (9.6-12.0); Monocytes # 1.5 10*3/uL (0.11-0.8); Monocytes % 8.3 % (1.7-12.7); Neutrophils % 79.6 % (38.7-73.9); Red Cell Distribution Width 15.3 % (9.3-17.3); White Blood Count 17.8 T/CUMM (4-12)
[2021-12-22 06:28] LABS: Hemoglobin 10.7 GM/DL (12.0-16.0)
[2021-12-22 06:29] LABS: Platelet Count 410 T/CUMM (130-400)
[2021-12-22 06:54] LABS: Alanine Aminotransferase 32 U/L (13-56); Albumin 1.8 G/DL (3.4-5.0); Alkaline Phosphatase 92 U/L (45-117); Aspartate Amino Transferase 102 U/L (0-37); Bilirubin,Total < 0.39 MG/DL (0.20-1.00); Blood Urea Nitrogen 43 MG/DL (7-18); Calcium 8.1 MG/DL (8.5-10.1); Carbon Dioxide 22 MMOL/L (21-32); Chloride 104 MMOL/L (98-107); Glucose 180 MG/DL (74-106); Osmolality,Calculated 285.1 MOS/KG (273-304); Potassium 3.9 MMOL/L (3.5-5.1); Sodium 135 MMOL/L (136-145); Total Protein 6.2 G/DL (6.4-8.2)
[2021-12-22] MEDS: INSULIN LISPRO 100 UNIT/ML SUBCUT SCH ×4 (12:55→21:17)
[2021-12-22] MEDS: ASPIRIN EC 81 MG TABLET PO SCH (13:30)
[2021-12-22] MEDS: FERROUS SULFATE 325 MG TABLET PO SCH (13:30)
[2021-12-22] MEDS: DULoxetine 30 MG CAPSULE PO SCH (13:30)
[2021-12-22] MEDS: DONEPEZIL 10 MG TABLET PO SCH (13:30)
[2021-12-22] MEDS: AMIODARONE 200 MG TABLET PO SCH ×2 (13:30→21:17)
[2021-12-22] MEDS: VANCOMYCIN 125 MG CAPSULE PO SCH ×2 (13:30→18:08)
[2021-12-22] MEDS: APIXABAN 2.5 MG TABLET PO SCH ×2 (13:30→21:17)
[2021-12-22] MEDS: PANTOPRAZOLE 40 MG VIAL IV SCH (13:31)
[2021-12-22] MEDS: predniSONE 5 MG TABLET PO SCH ×2 (17:02→21:17)
[2021-12-22] MEDS: AMITRIPTYLINE 25 MG TABLET PO SCH (21:17)
[2021-12-22] MEDS: GABAPENTIN 100 MG CAPSULE PO SCH (21:17)
[2021-12-23] MEDS: VANCOMYCIN 125 MG CAPSULE PO SCH ×5 (01:06→23:45)
[2021-12-23] MEDS: SODIUM CHLORIDE 0.9% 1,000 ML IV SCH ×4 (01:15→20:51)
[2021-12-23 06:00] LABS: Basophils % 0.4 % (0.0-0.8); Eosinophils % 0.2 % (0.00-10.9); Hematocrit 32.7 VOL% (35.7-47.0); Immature Granulocytes Absolute 0.11 #; Lymphocytes % 9.6 % (21.3-54.2); Mean Corpuscular HGB Conc 30.6 GM/DL (32-36); Mean Corpuscular Volume 93.2 FL (87-102); Mean Platelet Volume 10.6 FL (9.6-12.0); Monocytes # 0.9 10*3/uL (0.11-0.8); Monocytes % 8.4 % (1.7-12.7); Neutrophils % 80.4 % (38.7-73.9); Platelet Count 416 T/CUMM (130-400); Red Blood Count 3.51 MC/CUMM (3.8-5.5); Red Cell Distribution Width 15.8 % (9.3-17.3); White Blood Count 10.8 T/CUMM (4-12)
[2021-12-23] MEDS: LEVOTHYROXINE 25 MCG TABLET PO SCH (06:03)
[2021-12-23 06:18] LABS: Calcium 8.6 MG/DL (8.5-10.1); Osmolality,Calculated 283.7 MOS/KG (273-304); Potassium 4.2 MMOL/L (3.5-5.1)
[2021-12-23 06:24] LABS: Risk Ratio 6.44; VLDL Cholesterol 34.4 MG/DL
[2021-12-23] MEDS: INSULIN LISPRO 100 UNIT/ML SUBCUT SCH ×4 (07:50→20:55)
[2021-12-23] MEDS: DULoxetine 30 MG CAPSULE PO SCH (08:57)
[2021-12-23] MEDS: ASPIRIN EC 81 MG TABLET PO SCH (08:58)
[2021-12-23] MEDS: METHENAMINE HIPPURATE 1 GM TABLET PO SCH ×2 (08:58→20:54)
[2021-12-23] MEDS: predniSONE 5 MG TABLET PO SCH ×2 (08:58→20:54)
[2021-12-23] MEDS: AMIODARONE 200 MG TABLET PO SCH ×2 (08:58→20:54)
[2021-12-23] MEDS: DONEPEZIL 10 MG TABLET PO SCH (08:58)
[2021-12-23] MEDS: FERROUS SULFATE 325 MG TABLET PO SCH (08:58)
[2021-12-23] MEDS: PANTOPRAZOLE 40 MG VIAL IV SCH (08:59)
[2021-12-23] MEDS: ALBUTEROL/IPRATROPIUM 3 ML NEB RESP TX SCH ×3 (10:20→19:03)
[2021-12-23] MEDS: MEGESTROL 40 MG TABLET PO SCH (20:53)
[2021-12-23] MEDS: AMITRIPTYLINE 25 MG TABLET PO SCH (20:54)
[2021-12-23] MEDS: GABAPENTIN 100 MG CAPSULE PO SCH (20:54)
[2021-12-24] MEDS: SODIUM CHLORIDE 0.9% 1,000 ML IV SCH (00:59)
[2021-12-24 05:26] LABS: Basophils % 0.2 % (0.0-0.8); Hematocrit 29.5 VOL% (35.7-47.0); Hemoglobin 9.3 GM/DL (12.0-16.0); Immature Granulocytes % 0.5 %; Immature Granulocytes Absolute 0.07 #; Lymphocytes # 0.7 10*3/uL (1.4-4.0); Lymphocytes % 5.4 % (21.3-54.2); Mean Corpuscular HGB Conc 31.5 GM/DL (32-36); Mean Corpuscular Volume 92.8 FL (87-102); Mean Platelet Volume 10.5 FL (9.6-12.0); Monocytes # 1.1 10*3/uL (0.11-0.8); Monocytes % 8.3 % (1.7-12.7); Neutrophils % 85.6 % (38.7-73.9); Platelet Count 383 T/CUMM (130-400); Red Blood Count 3.18 MC/CUMM (3.8-5.5); Red Cell Distribution Width 15.7 % (9.3-17.3); White Blood Count 12.9 T/CUMM (4-12)
[2021-12-24 05:46] LABS: Calcium 8.8 MG/DL (8.5-10.1); Potassium 3.9 MMOL/L (3.5-5.1)
[2021-12-24] MEDS: VANCOMYCIN 125 MG CAPSULE PO SCH ×4 (06:00→23:55)
[2021-12-24] MEDS: LEVOTHYROXINE 25 MCG TABLET PO SCH (06:00)
[2021-12-24 06:04] LABS: Alanine Aminotransferase 21 U/L (13-56); Albumin 1.8 G/DL (3.4-5.0); Alkaline Phosphatase 95 U/L (45-117); Aspartate Amino Transferase 19 U/L (0-37); Bilirubin,Direct < 0.050 MG/DL (0.0-0.20); Bilirubin,Indirect 0.3 MG/DL (0.0-1.0); Bilirubin,Total < 0.39 MG/DL (0.20-1.00); Total Protein 5.7 G/DL (6.4-8.2)
[2021-12-24] MEDS: ALBUTEROL/IPRATROPIUM 3 ML NEB RESP TX SCH ×3 (08:10→19:35)
[2021-12-24] MEDS: INSULIN LISPRO 100 UNIT/ML SUBCUT SCH ×4 (08:34→21:24)
[2021-12-24] MEDS: FERROUS SULFATE 325 MG TABLET PO SCH (09:48)
[2021-12-24] MEDS: ASPIRIN EC 81 MG TABLET PO SCH (09:48)
[2021-12-24] MEDS: predniSONE 5 MG TABLET PO SCH ×2 (09:48→21:24)
[2021-12-24] MEDS: DULoxetine 30 MG CAPSULE PO SCH (09:48)
[2021-12-24] MEDS: APIXABAN 2.5 MG TABLET PO SCH (09:48)
[2021-12-24] MEDS: DONEPEZIL 10 MG TABLET PO SCH (09:48)
[2021-12-24] MEDS: METHENAMINE HIPPURATE 1 GM TABLET PO SCH ×2 (09:48→21:24)
[2021-12-24] MEDS: AMIODARONE 200 MG TABLET PO SCH ×2 (09:48→21:24)
[2021-12-24] MEDS: MEGESTROL 40 MG TABLET PO SCH ×2 (09:48→21:24)
[2021-12-24] MEDS: PANTOPRAZOLE 40 MG VIAL IV SCH (09:49)
[2021-12-24] MEDS ORDERED: FUROSEMIDE 20 MG/2 ML VIAL IV ONE (11:07)
[2021-12-24] MEDS: cefTRIAXone 1,000 MG in SODIUM CHLORIDE 0.9% 100 ML IV SCH (11:54)
[2021-12-24 12:48] LABS: Free T4 (Free Thyroxine) 6.52 NG/DL (0.76-1.46)
[2021-12-24] MEDS: DOXYCYCLINE HYCLATE INJ 100 MG in SODIUM CHLORIDE 0.9% 100 ML IV SCH (16:59)
[2021-12-24] MEDS: GABAPENTIN 100 MG CAPSULE PO SCH (21:24)
[2021-12-24] MEDS: AMITRIPTYLINE 25 MG TABLET PO SCH (21:24)
[2021-12-24] MEDS: OMEGA 3 ACID ETHYL ESTERS 1 GM CAPSULE PO SCH (21:24)
[2021-12-25] MEDS: DOXYCYCLINE HYCLATE INJ 100 MG in SODIUM CHLORIDE 0.9% 100 ML IV SCH ×2 (02:16→16:34)
[2021-12-25] MEDS: VANCOMYCIN 125 MG CAPSULE PO SCH ×4 (06:25→23:51)
[2021-12-25] MEDS: LEVOTHYROXINE 25 MCG TABLET PO SCH (06:25)
[2021-12-25 07:05] LABS: Basophils % 0.3 % (0.0-0.8); Eosinophils % 0.1 % (0.00-10.9); Hematocrit 30.3 VOL% (35.7-47.0); Hemoglobin 9.7 GM/DL (12.0-16.0); Immature Granulocytes % 1.1 %; Immature Granulocytes Absolute 0.15 #; Lymphocytes # 1.2 10*3/uL (1.4-4.0); Lymphocytes % 9.1 % (21.3-54.2); Mean Corpuscular Volume 90.2 FL (87-102); Mean Platelet Volume 11.1 FL (9.6-12.0); Monocytes # 1.2 10*3/uL (0.11-0.8); Monocytes % 8.6 % (1.7-12.7); NRBC # 0.02 10*3/uL; Neutrophils % 80.8 % (38.7-73.9); Platelet Count 378 T/CUMM (130-400); Red Blood Count 3.36 MC/CUMM (3.8-5.5); Red Cell Distribution Width 15.9 % (9.3-17.3); White Blood Count 13.4 T/CUMM (4-12)
[2021-12-25] MEDS: ALBUTEROL/IPRATROPIUM 3 ML NEB RESP TX SCH ×3 (07:10→19:40)
[2021-12-25 07:13] LABS: Potassium 4.2 MMOL/L (3.5-5.1)
[2021-12-25] MEDS ORDERED: methIMAzole 5 MG TABLET PO SCH (09:00)
[2021-12-25] MEDS: ASPIRIN EC 81 MG TABLET PO SCH (09:38)
[2021-12-25] MEDS: PANTOPRAZOLE 40 MG VIAL IV SCH (09:38)
[2021-12-25] MEDS: FERROUS SULFATE 325 MG TABLET PO SCH (09:38)
[2021-12-25] MEDS: DULoxetine 30 MG CAPSULE PO SCH (09:38)
[2021-12-25] MEDS: METHENAMINE HIPPURATE 1 GM TABLET PO SCH ×2 (09:38→21:12)
[2021-12-25] MEDS: MEGESTROL 40 MG TABLET PO SCH ×2 (09:38→21:15)
[2021-12-25] MEDS: OMEGA 3 ACID ETHYL ESTERS 1 GM CAPSULE PO SCH ×2 (09:38→21:12)
[2021-12-25] MEDS: AMIODARONE 200 MG TABLET PO SCH ×2 (09:38→21:13)
[2021-12-25] MEDS: DONEPEZIL 10 MG TABLET PO SCH (09:38)
[2021-12-25] MEDS ORDERED: FUROSEMIDE 40 MG/4 ML VIAL IV ONE (10:24)
[2021-12-25] MEDS: INSULIN LISPRO 100 UNIT/ML SUBCUT SCH ×4 (10:46→21:14)
[2021-12-25] MEDS: cefTRIAXone 1,000 MG in SODIUM CHLORIDE 0.9% 100 ML IV SCH (12:06)
[2021-12-25 14:41] LABS: Arterial Base Excess iSTAT -4 MMOL/L (-2.5-2.5); Arterial Bicarbonate iSTAT 19.4 MMOL/L (20-26); Arterial O2 Saturation iSTAT 94 % (95-100); Arterial PCO2 iSTAT 28 MM HG (35-48); Arterial PO2 iSTAT 67 MM HG (80-95); Arterial Total CO2 iSTAT 20 MMO/L (23-27)
[2021-12-25] MEDS: methylPREDNISolone SOD SUC 40 MG/1 ML VIAL IV SCH (16:34)
[2021-12-25] MEDS: guaiFENesin/DM ER 600-30 MG TABLET PO SCH ×2 (16:35→21:12)
[2021-12-25] MEDS: GABAPENTIN 100 MG CAPSULE PO SCH (21:13)
[2021-12-25] MEDS: AMITRIPTYLINE 25 MG TABLET PO SCH (21:14)
[2021-12-26] MEDS: ALBUTEROL/IPRATROPIUM 3 ML NEB RESP TX SCH ×4 (00:51→19:29)
[2021-12-26] MEDS: methylPREDNISolone SOD SUC 40 MG/1 ML VIAL IV SCH ×2 (02:33→16:40)
[2021-12-26] MEDS: DOXYCYCLINE HYCLATE INJ 100 MG in SODIUM CHLORIDE 0.9% 100 ML IV SCH ×2 (02:34→17:10)
[2021-12-26 03:47] LABS: Basophils % 0.3 % (0.0-0.8); Immature Granulocytes % 1.7 %; Immature Granulocytes Absolute 0.21 #; Lymphocytes # 0.5 10*3/uL (1.4-4.0); Lymphocytes % 3.8 % (21.3-54.2); Mean Corpuscular HGB Conc 31.3 GM/DL (32-36); Mean Corpuscular Volume 91.4 FL (87-102); Mean Platelet Volume 10.7 FL (9.6-12.0); Monocytes # 0.3 10*3/uL (0.11-0.8); Monocytes % 2.4 % (1.7-12.7); Neutrophils % 91.8 % (38.7-73.9); Platelet Count 422 T/CUMM (130-400); Red Cell Distribution Width 16.1 % (9.3-17.3); White Blood Count 12.2 T/CUMM (4-12)
[2021-12-26 04:01] LABS: Osmolality,Calculated 282.2 MOS/KG (273-304); Potassium 3.8 MMOL/L (3.5-5.1)
[2021-12-26 04:11] LABS: Lymphocytes 4 % (20-55); Total Cells Counted 100
[2021-12-26 04:12] LABS: Hypochromia Slight; Microcytosis 1+
[2021-12-26 04:13] LABS: Platelet Estimate Increased
[2021-12-26] MEDS: LEVOTHYROXINE 25 MCG TABLET PO SCH (05:49)
[2021-12-26] MEDS: VANCOMYCIN 125 MG CAPSULE PO SCH ×3 (05:49→17:31)
[2021-12-26] MEDS ORDERED: SODIUM BICARBONATE 50 MEQ/50 ML VIAL IV ONE (07:45)
[2021-12-26] MEDS ORDERED: SODIUM BICARB INJ 50 MEQ in IV BAG 1 EACH IV ONE (08:30)
[2021-12-26] MEDS ORDERED: MAGNESIUM SULF RIDER 2 GM/50 ML PREMIX IV ONE (08:52)
[2021-12-26] MEDS: MEGESTROL 40 MG TABLET PO SCH ×2 (09:14→22:39)
[2021-12-26] MEDS: METHENAMINE HIPPURATE 1 GM TABLET PO SCH ×2 (09:14→22:39)
[2021-12-26] MEDS: DULoxetine 30 MG CAPSULE PO SCH (09:14)
[2021-12-26] MEDS: FERROUS SULFATE 325 MG TABLET PO SCH (09:14)
[2021-12-26] MEDS: ASPIRIN EC 81 MG TABLET PO SCH (09:14)
[2021-12-26] MEDS: AMIODARONE 200 MG TABLET PO SCH ×2 (09:14→22:39)
[2021-12-26] MEDS: DONEPEZIL 10 MG TABLET PO SCH (09:14)
[2021-12-26] MEDS: guaiFENesin/DM ER 600-30 MG TABLET PO SCH ×2 (09:14→22:40)
[2021-12-26] MEDS: OMEGA 3 ACID ETHYL ESTERS 1 GM CAPSULE PO SCH ×2 (09:15→22:39)
[2021-12-26] MEDS: APIXABAN 2.5 MG TABLET PO SCH ×2 (09:44→22:39)
[2021-12-26] MEDS: INSULIN LISPRO 100 UNIT/ML SUBCUT SCH ×4 (10:40→23:24)
[2021-12-26] MEDS: PANTOPRAZOLE 40 MG VIAL IV SCH (11:40)
[2021-12-26 12:29] LABS: Calcium 9.3 MG/DL (8.5-10.1); Osmolality,Calculated 283.4 MOS/KG (273-304)
[2021-12-26] MEDS ORDERED: DILTIAZEM 25 MG/5 ML VIAL IV ONE (14:05)
[2021-12-26] MEDS: cefTRIAXone 1,000 MG in SODIUM CHLORIDE 0.9% 100 ML IV SCH (14:47)
[2021-12-26] MEDS: GABAPENTIN 100 MG CAPSULE PO SCH (22:38)
[2021-12-26] MEDS: AMITRIPTYLINE 25 MG TABLET PO SCH (22:40)
[2021-12-27] MEDS: ALBUTEROL/IPRATROPIUM 3 ML NEB RESP TX SCH ×4 (00:50→19:30)
[2021-12-27] MEDS: VANCOMYCIN 125 MG CAPSULE PO SCH ×5 (01:31→18:08)
[2021-12-27] MEDS: methylPREDNISolone SOD SUC 40 MG/1 ML VIAL IV SCH (01:31)
[2021-12-27] MEDS: DOXYCYCLINE HYCLATE INJ 100 MG in SODIUM CHLORIDE 0.9% 100 ML IV SCH ×2 (03:21→15:00)
[2021-12-27 05:23] LABS: Basophils % 0.1 % (0.0-0.8); Hematocrit 29.1 VOL% (35.7-47.0); Hemoglobin 9.5 GM/DL (12.0-16.0); Immature Granulocytes % 1.5 %; Lymphocytes # 0.5 10*3/uL (1.4-4.0); Lymphocytes % 3.7 % (21.3-54.2); Mean Corpuscular HGB Conc 32.6 GM/DL (32-36); Mean Corpuscular Volume 89.3 FL (87-102); Mean Platelet Volume 10.3 FL (9.6-12.0); Monocytes # 0.4 10*3/uL (0.11-0.8); Monocytes % 3.2 % (1.7-12.7); Neutrophils % 91.5 % (38.7-73.9); Platelet Count 459 T/CUMM (130-400); Red Blood Count 3.26 MC/CUMM (3.8-5.5); Red Cell Distribution Width 16.4 % (9.3-17.3); White Blood Count 13.6 T/CUMM (4-12)
[2021-12-27 05:43] LABS: Calcium 9.3 MG/DL (8.5-10.1); Osmolality,Calculated 288.1 MOS/KG (273-304); Potassium 3.7 MMOL/L (3.5-5.1)
[2021-12-27 06:06] LABS: Anisocytosis 1+; Band Neutrophils 1 % (0-10); Lymphocytes 4 % (20-55); Macrocytosis Slight; Platelet Estimate Normal; Total Cells Counted 100
[2021-12-27] MEDS: LEVOTHYROXINE 25 MCG TABLET PO SCH (06:22)
[2021-12-27] MEDS ORDERED: methylPREDNISolone SOD SUC 40 MG/1 ML VIAL IV SCH (09:00)
[2021-12-27] MEDS: INSULIN LISPRO 100 UNIT/ML SUBCUT SCH ×4 (09:09→22:10)
[2021-12-27] MEDS: PANTOPRAZOLE 40 MG VIAL IV SCH (09:42)
[2021-12-27] MEDS: SODIUM BICARBONATE 650 MG TABLET PO SCH ×2 (09:43→22:14)
[2021-12-27] MEDS: FERROUS SULFATE 325 MG TABLET PO SCH (09:43)
[2021-12-27] MEDS: APIXABAN 2.5 MG TABLET PO SCH ×2 (09:43→22:14)
[2021-12-27] MEDS: guaiFENesin/DM ER 600-30 MG TABLET PO SCH ×2 (09:43→22:11)
[2021-12-27] MEDS: AMIODARONE 200 MG TABLET PO SCH ×2 (09:43→22:11)
[2021-12-27] MEDS: DULoxetine 30 MG CAPSULE PO SCH (09:43)
[2021-12-27] MEDS: METHENAMINE HIPPURATE 1 GM TABLET PO SCH ×2 (09:44→22:11)
[2021-12-27] MEDS: MEGESTROL 40 MG TABLET PO SCH ×2 (09:44→22:11)
[2021-12-27] MEDS: predniSONE 5 MG TABLET PO SCH ×2 (09:44→22:11)
[2021-12-27] MEDS: DONEPEZIL 10 MG TABLET PO SCH (09:44)
[2021-12-27] MEDS: OMEGA 3 ACID ETHYL ESTERS 1 GM CAPSULE PO SCH ×2 (09:47→22:11)
[2021-12-27] MEDS: ASPIRIN EC 81 MG TABLET PO SCH (09:48)
[2021-12-27] MEDS: SODIUM CHLORIDE 0.9% 1,000 ML IV SCH ×2 (09:57→18:10)
[2021-12-27] MEDS: cefTRIAXone 1,000 MG in SODIUM CHLORIDE 0.9% 100 ML IV SCH (12:41)
[2021-12-27] MEDS: DOCUSATE SODIUM 100 MG CAPSULE PO SCH (22:11)
[2021-12-27] MEDS: AMITRIPTYLINE 25 MG TABLET PO SCH (22:11)
[2021-12-27] MEDS: GABAPENTIN 100 MG CAPSULE PO SCH (22:11)
[2021-12-28] MEDS: ALBUTEROL/IPRATROPIUM 3 ML NEB RESP TX SCH ×4 (00:12→19:20)
[2021-12-28] MEDS: VANCOMYCIN 125 MG CAPSULE PO SCH ×4 (00:57→17:31)
[2021-12-28] MEDS: DOXYCYCLINE HYCLATE INJ 100 MG in SODIUM CHLORIDE 0.9% 100 ML IV SCH ×2 (03:40→14:10)
[2021-12-28 05:05] LABS: Basophils % 0.1 % (0.0-0.8); Hematocrit 27.2 VOL% (35.7-47.0); Hemoglobin 8.7 GM/DL (12.0-16.0); Immature Granulocytes % 2.7 %; Immature Granulocytes Absolute 0.42 #; Lymphocytes # 0.7 10*3/uL (1.4-4.0); Lymphocytes % 4.4 % (21.3-54.2); Mean Corpuscular Volume 89.2 FL (87-102); Mean Platelet Volume 10.3 FL (9.6-12.0); Monocytes # 1.1 10*3/uL (0.11-0.8); Monocytes % 6.9 % (1.7-12.7); NRBC # 0.02 10*3/uL; Neutrophils % 85.9 % (38.7-73.9); Platelet Count 453 T/CUMM (130-400); Red Blood Count 3.05 MC/CUMM (3.8-5.5); Red Cell Distribution Width 16.6 % (9.3-17.3); White Blood Count 15.7 T/CUMM (4-12)
[2021-12-28 05:29] LABS: Calcium 8.9 MG/DL (8.5-10.1); Osmolality,Calculated 286.2 MOS/KG (273-304); Potassium 3.6 MMOL/L (3.5-5.1)
[2021-12-28 06:21] LABS: Band Neutrophils 1 % (0-10); Lymphocytes 3 % (20-55); Platelet Estimate Normal; Total Cells Counted 100
[2021-12-28 06:22] LABS: Anisocytosis Slight
[2021-12-28] MEDS: LEVOTHYROXINE 25 MCG TABLET PO SCH (06:42)
[2021-12-28] MEDS: DONEPEZIL 10 MG TABLET PO SCH (09:41)
[2021-12-28] MEDS: METHENAMINE HIPPURATE 1 GM TABLET PO SCH ×2 (09:41→21:32)
[2021-12-28] MEDS: FERROUS SULFATE 325 MG TABLET PO SCH (09:41)
[2021-12-28] MEDS: SODIUM BICARBONATE 650 MG TABLET PO SCH ×2 (09:42→21:33)
[2021-12-28] MEDS: predniSONE 5 MG TABLET PO SCH (09:42)
[2021-12-28] MEDS: APIXABAN 2.5 MG TABLET PO SCH ×2 (09:42→21:37)
[2021-12-28] MEDS: AMIODARONE 200 MG TABLET PO SCH ×2 (09:42→21:32)
[2021-12-28] MEDS: guaiFENesin/DM ER 600-30 MG TABLET PO SCH ×2 (09:42→21:33)
[2021-12-28] MEDS: DULoxetine 30 MG CAPSULE PO SCH (09:42)
[2021-12-28] MEDS: MEGESTROL 40 MG TABLET PO SCH ×2 (09:42→21:33)
[2021-12-28] MEDS: OMEGA 3 ACID ETHYL ESTERS 1 GM CAPSULE PO SCH ×2 (09:42→21:33)
[2021-12-28] MEDS: ASPIRIN EC 81 MG TABLET PO SCH (09:42)
[2021-12-28] MEDS: DOCUSATE SODIUM 100 MG CAPSULE PO SCH ×2 (09:43→21:32)
[2021-12-28] MEDS: PANTOPRAZOLE 40 MG VIAL IV SCH (09:48)
[2021-12-28] MEDS: INSULIN LISPRO 100 UNIT/ML SUBCUT SCH ×4 (10:11→21:32)
[2021-12-28] MEDS: cefTRIAXone 1,000 MG in SODIUM CHLORIDE 0.9% 100 ML IV SCH (12:03)
[2021-12-28 13:57] LABS: Calcium 9.2 MG/DL (8.5-10.1); Osmolality,Calculated 284.1 MOS/KG (273-304); Potassium 3.5 MMOL/L (3.5-5.1)
[2021-12-28] MEDS: GABAPENTIN 100 MG CAPSULE PO SCH (21:33)
[2021-12-28] MEDS: AMITRIPTYLINE 25 MG TABLET PO SCH (21:36)
[2021-12-29] MEDS: ALBUTEROL/IPRATROPIUM 3 ML NEB RESP TX SCH ×4 (00:40→20:23)
[2021-12-29] MEDS: VANCOMYCIN 125 MG CAPSULE PO SCH ×4 (00:48→17:17)
[2021-12-29] MEDS: DOXYCYCLINE HYCLATE INJ 100 MG in SODIUM CHLORIDE 0.9% 100 ML IV SCH (02:45)
[2021-12-29 05:08] LABS: Basophils % 0.3 % (0.0-0.8); Hematocrit 30.5 VOL% (35.7-47.0); Hemoglobin 9.7 GM/DL (12.0-16.0); Immature Granulocytes % 5.5 %; Immature Granulocytes Absolute 0.88 #; Lymphocytes # 1.6 10*3/uL (1.4-4.0); Mean Corpuscular HGB Conc 31.8 GM/DL (32-36); Mean Corpuscular Volume 90.2 FL (87-102); Mean Platelet Volume 10.4 FL (9.6-12.0); Monocytes # 1.8 10*3/uL (0.11-0.8); Monocytes % 11.1 % (1.7-12.7); NRBC # 0.08 10*3/uL; Neutrophils % 73.1 % (38.7-73.9); Platelet Count 422 T/CUMM (130-400); Red Blood Count 3.38 MC/CUMM (3.8-5.5); Red Cell Distribution Width 16.6 % (9.3-17.3)
[2021-12-29] MEDS: LEVOTHYROXINE 25 MCG TABLET PO SCH (05:13)
[2021-12-29 05:36] LABS: Calcium 9.1 MG/DL (8.5-10.1); Osmolality,Calculated 282.4 MOS/KG (273-304); Potassium 3.5 MMOL/L (3.5-5.1)
[2021-12-29 05:38] LABS: Lymphocytes 14 % (20-55); Nucleated Red Blood Cells 1 /100 WBC (0-5); Platelet Estimate Increased; Total Cells Counted 100
[2021-12-29] MEDS ORDERED: predniSONE 20 MG TABLET PO SCH (09:00)
[2021-12-29] MEDS: AMIODARONE 200 MG TABLET PO SCH ×2 (09:34→21:01)
[2021-12-29] MEDS: APIXABAN 2.5 MG TABLET PO SCH ×2 (09:34→21:01)
[2021-12-29] MEDS: DONEPEZIL 10 MG TABLET PO SCH (09:34)
[2021-12-29] MEDS: OMEGA 3 ACID ETHYL ESTERS 1 GM CAPSULE PO SCH ×2 (09:34→21:01)
[2021-12-29] MEDS: FERROUS SULFATE 325 MG TABLET PO SCH (09:34)
[2021-12-29] MEDS: METHENAMINE HIPPURATE 1 GM TABLET PO SCH ×2 (09:34→21:02)
[2021-12-29] MEDS: DOCUSATE SODIUM 100 MG CAPSULE PO SCH ×2 (09:34→21:01)
[2021-12-29] MEDS: guaiFENesin/DM ER 600-30 MG TABLET PO SCH ×2 (09:34→21:01)
[2021-12-29] MEDS: SODIUM BICARBONATE 650 MG TABLET PO SCH ×2 (09:34→21:01)
[2021-12-29] MEDS: INSULIN LISPRO 100 UNIT/ML SUBCUT SCH ×4 (09:35→21:02)
[2021-12-29] MEDS: ASPIRIN EC 81 MG TABLET PO SCH (09:35)
[2021-12-29] MEDS: PANTOPRAZOLE 40 MG VIAL IV SCH (09:35)
[2021-12-29] MEDS: MEGESTROL 40 MG TABLET PO SCH ×2 (09:35→21:02)
[2021-12-29] MEDS: DULoxetine 30 MG CAPSULE PO SCH (09:35)
[2021-12-29] MEDS: cefTRIAXone 1,000 MG in SODIUM CHLORIDE 0.9% 100 ML IV SCH (11:44)
[2021-12-29] MEDS: AMITRIPTYLINE 25 MG TABLET PO SCH (21:01)
[2021-12-29] MEDS: GABAPENTIN 100 MG CAPSULE PO SCH (21:02)
[2021-12-30] MEDS: VANCOMYCIN 125 MG CAPSULE PO SCH ×5 (00:17→23:50)
[2021-12-30] MEDS: ALBUTEROL/IPRATROPIUM 3 ML NEB RESP TX SCH ×4 (00:47→19:08)
[2021-12-30 04:49] LABS: Basophils % 0.2 % (0.0-0.8); Hematocrit 29.3 VOL% (35.7-47.0); Hemoglobin 9.2 GM/DL (12.0-16.0); Immature Granulocytes % 5.7 %; Lymphocytes # 1.3 10*3/uL (1.4-4.0); Lymphocytes % 7.6 % (21.3-54.2); Mean Corpuscular HGB Conc 31.4 GM/DL (32-36); Mean Corpuscular Volume 90.4 FL (87-102); Mean Platelet Volume 10.2 FL (9.6-12.0); Monocytes % 7.3 % (1.7-12.7); Neutrophils % 79.2 % (38.7-73.9); Platelet Count 412 T/CUMM (130-400); Red Blood Count 3.24 MC/CUMM (3.8-5.5); Red Cell Distribution Width 16.6 % (9.3-17.3); White Blood Count 17.2 T/CUMM (4-12)
[2021-12-30 04:50] LABS: Immature Granulocytes Absolute 0.97 #; Monocytes # 1.3 10*3/uL (0.11-0.8); NRBC # 0.05 10*3/uL
[2021-12-30 05:08] LABS: Osmolality,Calculated 293.8 MOS/KG (273-304); Potassium 4.1 MMOL/L (3.5-5.1)
[2021-12-30 05:13] LABS: Band Neutrophils 2 % (0-10); Lymphocytes 4 % (20-55); Platelet Estimate Adequate; Total Cells Counted 100
[2021-12-30] MEDS: LEVOTHYROXINE 25 MCG TABLET PO SCH (05:45)
[2021-12-30] MEDS: PANTOPRAZOLE 40 MG VIAL IV SCH (09:40)
[2021-12-30] MEDS: DULoxetine 30 MG CAPSULE PO SCH (09:41)
[2021-12-30] MEDS: INSULIN LISPRO 100 UNIT/ML SUBCUT SCH ×4 (09:41→22:02)
[2021-12-30] MEDS: SODIUM BICARBONATE 650 MG TABLET PO SCH ×2 (09:41→21:00)
[2021-12-30] MEDS: AMIODARONE 200 MG TABLET PO SCH ×2 (09:41→20:59)
[2021-12-30] MEDS: guaiFENesin/DM ER 600-30 MG TABLET PO SCH ×2 (09:41→20:59)
[2021-12-30] MEDS: OMEGA 3 ACID ETHYL ESTERS 1 GM CAPSULE PO SCH ×2 (09:41→20:58)
[2021-12-30] MEDS: DOCUSATE SODIUM 100 MG CAPSULE PO SCH ×2 (09:41→20:58)
[2021-12-30] MEDS: predniSONE 20 MG TABLET PO SCH ×2 (09:42→20:59)
[2021-12-30] MEDS: DONEPEZIL 10 MG TABLET PO SCH (09:42)
[2021-12-30] MEDS: ASPIRIN EC 81 MG TABLET PO SCH (09:42)
[2021-12-30] MEDS: FERROUS SULFATE 325 MG TABLET PO SCH (09:42)
[2021-12-30] MEDS: APIXABAN 2.5 MG TABLET PO SCH ×2 (09:42→20:58)
[2021-12-30] MEDS: METHENAMINE HIPPURATE 1 GM TABLET PO SCH (10:23)
[2021-12-30] MEDS: MEGESTROL 40 MG TABLET PO SCH ×2 (10:23→21:31)
[2021-12-30] MEDS: AMITRIPTYLINE 25 MG TABLET PO SCH (20:58)
[2021-12-30] MEDS: GABAPENTIN 100 MG CAPSULE PO SCH (20:59)
[2021-12-31] MEDS: ALBUTEROL/IPRATROPIUM 3 ML NEB RESP TX SCH ×3 (00:02→13:31)
[2021-12-31 04:44] LABS: Basophils # 0.1 10*3/uL (0.0-0.2); Basophils % 0.3 % (0.0-0.8); Hemoglobin 8.6 GM/DL (12.0-16.0); Immature Granulocytes % 6.1 %; Immature Granulocytes Absolute 1.21 #; Lymphocytes % 4.9 % (21.3-54.2); Mean Corpuscular HGB Conc 31.9 GM/DL (32-36); Mean Corpuscular Volume 89.4 FL (87-102); Mean Platelet Volume 10.4 FL (9.6-12.0); Monocytes % 5.2 % (1.7-12.7); NRBC # 0.09 10*3/uL; Neutrophils % 83.5 % (38.7-73.9); Platelet Count 390 T/CUMM (130-400); Red Blood Count 3.02 MC/CUMM (3.8-5.5); Red Cell Distribution Width 16.5 % (9.3-17.3); White Blood Count 19.8 T/CUMM (4-12)
[2021-12-31 05:06] LABS: Hypochromia Slight; Lymphocytes 5 % (20-55); Microcytosis Slight; Platelet Estimate Adequate; Total Cells Counted 100
[2021-12-31 05:09] LABS: Calcium 8.8 MG/DL (8.5-10.1); Osmolality,Calculated 293.7 MOS/KG (273-304); Potassium 3.9 MMOL/L (3.5-5.1)
[2021-12-31] MEDS: LEVOTHYROXINE 25 MCG TABLET PO SCH (05:21)
[2021-12-31] MEDS: VANCOMYCIN 125 MG CAPSULE PO SCH ×2 (05:22→13:17)
[2021-12-31] MEDS ORDERED: PANTOPRAZOLE 40 MG TABLET PO SCH (09:00)
[2021-12-31] MEDS: SODIUM BICARBONATE 650 MG TABLET PO SCH (09:37)
[2021-12-31] MEDS: guaiFENesin/DM ER 600-30 MG TABLET PO SCH (09:37)
[2021-12-31] MEDS: OMEGA 3 ACID ETHYL ESTERS 1 GM CAPSULE PO SCH (09:37)
[2021-12-31] MEDS: AMIODARONE 200 MG TABLET PO SCH (09:37)
[2021-12-31] MEDS: predniSONE 20 MG TABLET PO SCH (09:37)
[2021-12-31] MEDS: ASPIRIN EC 81 MG TABLET PO SCH (09:37)
[2021-12-31] MEDS: DOCUSATE SODIUM 100 MG CAPSULE PO SCH (09:37)
[2021-12-31] MEDS: MEGESTROL 40 MG TABLET PO SCH (09:37)
[2021-12-31] MEDS: DULoxetine 30 MG CAPSULE PO SCH (09:37)
[2021-12-31] MEDS: FERROUS SULFATE 325 MG TABLET PO SCH (09:37)
[2021-12-31] MEDS: APIXABAN 2.5 MG TABLET PO SCH (09:38)
[2021-12-31] MEDS: DONEPEZIL 10 MG TABLET PO SCH (09:38)
[2021-12-31] MEDS: INSULIN LISPRO 100 UNIT/ML SUBCUT SCH ×3 (09:38→16:12)
[2021-12-31 16:24] VITALS: BP 148/71
== END 2021-12-31 17:20 | disposition home health service (06) | DRG 371 ==
LOC: EDBD → EDUNIT# → N.ED 22:34 → N.EDINP 12-22 04:42 → SUATTDRO 12-22 04:42 → N.TELEN 12-22 16:17
PROVIDERS: ADMIT Family Medicine; ATTEND Internal Medicine Geriatric Medicine

== ENCOUNTER 2022-01-30 21:02 | Inpatient (IN) ==
[2022-01-30 21:25] LABS: Arterial Base Excess iSTAT -15 MMOL/L (-2.5-2.5); Arterial O2 Saturation iSTAT 100 % (95-100); Arterial PCO2 iSTAT 21 MM HG (35-48); Arterial PO2 iSTAT 264 MM HG (80-95); Arterial Total CO2 iSTAT 11 MMO/L (23-27); Arterial pH iSTAT 7.294 (7.35-7.45)
[2022-01-30 21:36] LABS: Basophils # 0.1 10*3/uL (0.0-0.2); Basophils % 0.5 % (0.0-0.8); Eosinophils % 0.1 % (0.00-10.9); Hematocrit 36.4 VOL% (35.7-47.0); Hemoglobin 11.3 GM/DL (12.0-16.0); Immature Granulocytes % 2.2 %; Immature Granulocytes Absolute 0.35 #; Lymphocytes # 3.6 10*3/uL (1.4-4.0); Lymphocytes % 22.6 % (21.3-54.2); Mean Corpuscular Volume 89.7 FL (87-102); Mean Platelet Volume 11.1 FL (9.6-12.0); Monocytes # 0.5 10*3/uL (0.11-0.8); Monocytes % 2.9 % (1.7-12.7); Neutrophils % 71.7 % (38.7-73.9); Platelet Count 523 T/CUMM (130-400); Red Blood Count 4.06 MC/CUMM (3.8-5.5); Red Cell Distribution Width 17.2 % (9.3-17.3)
[2022-01-30] MEDS ORDERED: SODIUM CHLORIDE 0.9% 500 ML IV STA (21:37)
[2022-01-30 21:46] LABS: INR 1.1; PT Patient Result 12.2 SECS (10.1-12.1); Partial Thromboplastin Time 26.5 SECS (23.7-32.9)
[2022-01-30] MEDS ORDERED: ALBUTEROL/IPRATROPIUM 3 ML NEB RESP TX STA (21:56)
[2022-01-30] MEDS ORDERED: ALBUTEROL/IPRATROPIUM 3 ML NEB RESP TX ONE (21:56)
[2022-01-30] MEDS ORDERED: NOREPINEPHRINE 4 MG/4 ML VIAL IV ONE (22:10)
[2022-01-30] MEDS: NOREPINEPHRINE 8 MG in SODIUM CHLORIDE 0.9% 242 ML IV PRN (22:10)
[2022-01-30] MEDS ORDERED: SODIUM CHLORIDE 0.9% 1,000 ML IV STA (22:31)
[2022-01-30] MEDS ORDERED: VANCOMYCIN INJ 1,000 MG in SODIUM CHLORIDE 0.9% 250 ML IV STA (22:38)
[2022-01-30] MEDS ORDERED: MEROPENEM 1,000 MG in SODIUM CHLORIDE 0.9% 100 ML IV STA (22:38)
[2022-01-30] MEDS ORDERED: AMIODARONE 150 MG/3 ML VIAL ONE (23:09)
[2022-01-30] MEDS ORDERED: AMIODARONE 450 MG/9 ML VIAL IV ONE (23:09)
[2022-01-30] MEDS ORDERED: AMIODARONE INJ 150 MG in DEXTROSE 5% 100 ML IV ONE (23:12)
[2022-01-30] MEDS ORDERED: SODIUM BICARBONATE 50 MEQ/50 ML VIAL IV ONE ×2 (23:14→23:22)
[2022-01-30] MEDS ORDERED: SODIUM BICARBONATE 50 MEQ/50 ML VIAL IV STA (23:16)
[2022-01-30] MEDS ORDERED: AMIODARONE INJ 450 MG in DEXTROSE 5% 241 ML IV SCH (23:22)
[2022-01-30 23:25] LABS: Albumin 2.1 G/DL (3.4-5.0); Bilirubin,Total 0.6 MG/DL (0.20-1.00); Calcium 9.9 MG/DL (8.5-10.1); Potassium 4.8 MMOL/L (3.5-5.1); Total Protein 6.2 G/DL (6.4-8.2)
[2022-01-30 23:27] LABS: Arterial Base Excess iSTAT -22 MMOL/L (-2.5-2.5); Arterial Bicarbonate iSTAT 9.4 MMOL/L (20-26); Arterial O2 Saturation iSTAT 100 % (95-100); Arterial PCO2 iSTAT 44 MM HG (35-48); Arterial PO2 iSTAT 490 MM HG (80-95); Arterial Total CO2 iSTAT 11 MMO/L (23-27); Arterial pH iSTAT 6.939 (7.35-7.45)
[2022-01-30] MEDS ORDERED: ALBUTEROL 2.5 MG/3 ML NEB RESP TX PRN (23:31)
[2022-01-30] MEDS ORDERED: ONDANSETRON 4 MG/2 ML VIAL IV PRN (23:32)
[2022-01-30] MEDS ORDERED: ACETAMINOPHEN 325 MG TABLET PO PRN (23:32)
[2022-01-30] MEDS ORDERED: MIDAZOLAM 100 MG in SODIUM CHLORIDE 0.9% 80 ML IV PRN (23:32)
[2022-01-30] MEDS ORDERED: FAMOTIDINE 20 MG/2 ML VIAL IV SCH (23:45)
[2022-01-30] MEDS ORDERED: SODIUM CHLORIDE 0.9% 1,000 ML IV SCH (23:45)
[2022-01-30] MEDS ORDERED: MAGNESIUM SULF RIDER 2 GM/50 ML PREMIX IV PRN (23:48)
[2022-01-30] MEDS ORDERED: MAGNESIUM SULF RIDER 4 GM/100 ML PREMIX IV PRN (23:48)
[2022-01-30] MEDS ORDERED: SODIUM CHLORIDE 0.9% 1,000 ML IV ONE (23:50)
[2022-01-31] MEDS ORDERED: PHENYLEPHRINE DRIP 40 MG/250 ML PREMIX IV ONE (00:05)
[2022-01-31] MEDS: NOREPINEPHRINE 8 MG in SODIUM CHLORIDE 0.9% 242 ML IV PRN ×2 (00:16→02:44)
[2022-01-31] MEDS ORDERED: NOREPINEPHRINE 4 MG/4 ML VIAL IV ONE ×2 (00:26→02:39)
[2022-01-31] MEDS ORDERED: PHENYLEPHRINE DRIP 40 MG/250 ML PREMIX IV PRN (00:34)
[2022-01-31] MEDS ORDERED: ETOMIDATE 20 MG/10 ML VIAL IV ONE (00:50)
[2022-01-31] MEDS ORDERED: ROCURONIUM 100 MG/10 ML VIAL IV ONE (00:50)
[2022-01-31 00:58] LABS: ABG Base Excess -18.9 MMOL/L (-2.5-2.5); ABG HCO3 10.5 MMOL/L (20-26); ABG Oxygen Saturation 98.9 % (95-100); ABG PCO2 38.4 MM HG (35-48); ABG TCO2 10.5 MMOL/L (23-27)
[2022-01-31] MEDS ORDERED: HYDROCORTISONE 100 MG VIAL IV SCH (01:00)
[2022-01-31 01:14] LABS: ABG PH 7.058 (7.35-7.45)
[2022-01-31] MEDS ORDERED: SODIUM BICARBONATE 50 MEQ/50 ML VIAL IV ONE (01:15)
[2022-01-31 01:41] LABS: Bacteria,Urine Many /HPF (Few); Bilirubin,Urine Negative (Negative); Blood, Urine Negative (Negative); Glucose,Urine (UA) Negative (Negative); Ketones,Urine 20 mg/dL (Negative); Mucus,Urine Few /LPF (Occasional); Nitrite,Urine Negative (Negative); Protein,Urine 30 mg/dL (Negative); RBC,Urine 41 /HPF (0-4); Squamous Epithelial Cell,Urine Occasional /HPF (0-10); Urine Appearance CLOUDY (Clear); Urine Color Amber (Yellow); Urine Specific Gravity 1.018 (1.001-1.035); Urine Urobilinogen < 2.0 eU/dL (<2.0)
[2022-01-31] MEDS: ALBUTEROL/IPRATROPIUM 3 ML NEB RESP TX SCH ×2 (02:12→07:35)
[2022-01-31 02:25] VITALS: BP 125/57
[2022-01-31] MEDS: SODIUM BICARB INJ 150 MEQ in STERILE WATER INJ 850 ML IV SCH ×2 (02:35→09:02)
[2022-01-31] MEDS ORDERED: NOREPINEPHRINE 16 MG in SODIUM CHLORIDE 0.9% 234 ML IV PRN (02:40)
[2022-01-31] MEDS ORDERED: PHENYLEPHRINE INJ 160 MG in SODIUM CHLORIDE 0.9% 234 ML IV PRN (03:14)
[2022-01-31] MEDS ORDERED: VASOPRESSIN 100 UNITS in SODIUM CHLORIDE 0.9% 95 ML IV PRN (03:49)
[2022-01-31] MEDS ORDERED: MORPHINE 2 MG/1 ML SYRINGE IV PRN ×2 (04:50→08:02)
[2022-01-31] MEDS ORDERED: MEROPENEM 2,000 MG in SODIUM CHLORIDE 0.9% 100 ML IV SCH (07:00)
[2022-01-31] MEDS ORDERED: MEROPENEM 500 MG in SODIUM CHLORIDE 0.9% 100 ML IV SCH (08:00)
[2022-01-31] MEDS ORDERED: LORazepam 2 MG/1 ML VIAL IV PRN (08:02)
[2022-01-31] MEDS ORDERED: ENOXAPARIN 40 MG/0.4 ML SYRINGE SUBCUT SCH (09:00)
[2022-01-31] MEDS ORDERED: SODIUM BICARB INJ 150 MEQ in STERILE WATER INJ 1,000 ML IV SCH (09:01)
[2022-01-31] MEDS ORDERED: VANCOMYCIN INJ 1,250 MG in SODIUM CHLORIDE 0.9% 250 ML IV SCH (18:00)
[2022-01-31] MEDS ORDERED: VANCOMYCIN INJ 1,000 MG in SODIUM CHLORIDE 0.9% 250 ML IV SCH (23:00)
== END 2022-01-31 08:02 | disposition expired | DRG 871 ==
LOC: N.ED 21:02 → N.CC 23:21
PROVIDERS: ADMIT Internal Medicine; ATTEND Internal Medicine